=== PATIENT | male | born 1970 | race Caucasian/White ===

== ENCOUNTER 2016-11-28 22:17 | Emergency (ER) | payer MEDICAID ==
[2016-11-28] MEDS ORDERED: HYDROMORPHONE HCL INJ/PF 2 MG/ML AMPULE IV ONE ×2 (22:39→23:49)
[2016-11-28] MEDS ORDERED: ONDANSETRON HCL INJ/PF 4 MG/2 ML SDV IV ONE (22:39)
[2016-11-28] MEDS ORDERED: LIDOCAINE 2% URO-JET 5 ML KIT MM ONE (22:39)
--- NOTE | 2016-11-28 22:40 | ER Document Report ---
ED GI/ - General Stated Complaint: POSSIBLE KIDNEY STONES Time seen by provider: 22:40 Notes: Patient is a 46-year-old male that comes emergency department with chief complaint of sharp pain in his groin and genital area, he states that he has uric acid stones and passes these frequently, he states that he knew he had one left past because it could feel it but at 7:30 PM tonight it became suddenly painful and nauseating with vomiting. Patient has a follow-up with his urologist on Wednesday. Patient denies any fevers. TRAVEL OUTSIDE OF THE [place] IN LAST 30 DAYS: No - Related Data Allergies/Adverse Reactions: fentanyl Adverse Reaction (Verified 11/21/16 22:19) trazodone [Trazodone] Adverse Reaction (Verified 11/21/16 22:19) Past Medical History - General Information source: Patient - Social History Smoking Status: Current Every Day Smoker Frequency of alcohol use: None Drug Abuse: None Lives with: Family Family History: None, Reviewed & Not Pertinent - Past Medical History Cardiac Medical History: Reports: Hx Hypercholesterolemia, Hx Hypertension Endocrine Medical History: Reports: Hx Diabetes Mellitus Type 2 Renal/ Medical History: Reports: Hx Kidney Stones GI Medical History: Reports: Hx Gastroesophageal Reflux Disease, Hx Hiatal Hernia Musculoskeltal Medical History: Reports Hx Musculoskeletal Trauma Traumatic Medical History: Reports: Hx Spine Fracture Past Surgical History: Reports: Hx Cholecystectomy, Hx Orthopedic Surgery - Neck fusion, chronic pain - Immunizations Hx Diphtheria, Pertussis, Tetanus Vaccination: No Review of Systems - Review of Systems Constitutional: No symptoms reported EENT: No symptoms reported Cardiovascular: No symptoms reported Respiratory: No symptoms reported Gastrointestinal: See HPI Genitourinary: See HPI Male Genitourinary: See HPI Musculoskeletal: No symptoms reported Skin: No symptoms reported Hematologic/Lymphatic: No symptoms reported Neurological/Psychological: No symptoms reported Physical Exam - Vital signs Vitals: Temp Pulse Resp BP Pulse Ox 97.8 F 106 H 22 H 142/107 H 97 11/28/16 23:25 11/28/16 23:25 11/28/16 23:25 11/28/16 23:25 11/28/16 23:25 Interpretation: Normal - General General appearance: Anxious In distress: Severe - HEENT Head: Normocephalic, Atraumatic Eyes: Normal Conjunctiva: Normal Extraocular movements intact: Yes Eyelashes: Normal Pupils: PERRL Nasal: Normal Mouth/Lips: Normal Mucous membranes: Normal Pharynx: Normal Neck: Normal - Respiratory Respiratory status: No respiratory distress Chest status: Nontender Breath sounds: Normal Chest palpation: Normal - Cardiovascular Rhythm: Regular Heart sounds: Normal auscultation Murmur: No - Abdominal Inspection: Normal Distension: No distension Bowel sounds: Normal Tenderness: Tender - Generalized tenderness, nonspecific. No: McBurney's point , Santana's sign, Guarding Organomegaly: No organomegaly - Genitourinary Inspection: Normal. No: Blood at meatus Tenderness: Nontender Cremasteric reflex: Normal. No: Right reflex absent, Left reflex absent Scrotum: Normal. No: Swelling, Redness, Hot to touch - Back Back: Normal, Nontender - Extremities General upper extremity: Normal inspection, Nontender, Normal color, Normal ROM , Normal temperature General lower extremity: Normal inspection, Nontender, Normal color, Normal ROM , Normal temperature, Normal weight bearing. 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 Patient was given a large amount of medications before he was finally able to produce a stone from the urethra, this was somewhat bloody in his attempt which he essentially milked the stone out of the urethra. I did visualize the stone. Patient finally became calm and relaxed after passage of stone. Urine does not indicate an infection, no fever, no renal failure noted on chemistry. Patient states he has follow-up with urology on Wednesday. Return precautions discussed. - Vital Signs Vital signs: Temp Pulse Resp BP Pulse Ox 97.8 F 90 18 117/69 97 11/28/16 23:25 11/29/16 04:34 11/29/16 04:34 11/29/16 04:34 11/29/16 04:34 - Laboratory Result Diagrams: 11/28/16 22:46 Laboratory results interpreted by me: 11/28/16 11/28/16 22:46 23:21 Glucose 178 H Urine Protein 100 H Urine Glucose (UA) 50 H Urine Blood LARGE H Discharge - Discharge Clinical Impression: Ureterolithiasis, Flank pain, Hematuria Condition: Stable Disposition: HOME, SELF-CARE Additional Instructions: Please follow-up with your urologist on Wednesday. Return to emergency department for any concerning symptoms. Referrals: ELIAS AYALA FNP-C [Primary Care Provider] - Follow up as needed
[2016-11-28] MEDS ORDERED: DIAZEPAM INJ 10 MG/2 ML DISP.SYRIN IV ONE (22:58)
[2016-11-28] MEDS ORDERED: TAMSULOSIN HCL 0.4 MG CAP.SR.24H PO ONE (23:13)
[2016-11-28 23:15] LABS: ANION GAP 16 (5-19); BLOOD UREA NITROGEN 18 mg/dL (7-20); CALCIUM 9.6 mg/dL (8.4-10.2); CARBON DIOXIDE 25 mmol/L (22-30); CHLORIDE 98 mmol/L (98-107); CREATININE RESULT 0.91 mg/dL (0.52-1.25); GLUCOSE 178 mg/dL (75-110); POTASSIUM 4.7 mmol/L (3.6-5.0); SODIUM 139.4 mmol/L (137-145)
[2016-11-29] MEDS ORDERED: DIPHENHYDRAMINE HCL 50 MG/ML VIAL IV ONE ×2 (00:03→00:55)
[2016-11-29] MEDS ORDERED: DIAZEPAM INJ 10 MG/2 ML DISP.SYRIN IV ONE ×2 (00:03→03:06)
[2016-11-29 00:16] LABS: APPEARANCE,URINE SLIGHTLY-CLOUDY; BILIRUBIN,URINE NEGATIVE (NEGATIVE); GLUCOSE, URINE 50 mg/dL (NEGATIVE); KETONES,URINE NEGATIVE (NEGATIVE); LEUKOCYTE ESTERASE,URINE NEGATIVE (NEGATIVE); NITRITE,URINE NEGATIVE (NEGATIVE); PROTEIN,URINE 100 mg/dL (NEGATIVE); URINE SPECIFIC GRAVITY 1.025; UROBILINOGEN,URINE NEGATIVE mg/dL (<2.0)
[2016-11-29 00:18] LABS: AMORPHOUS SEDIMENT,URINE TRACE /HPF
[2016-11-29] MEDS ORDERED: HYDROMORPHONE HCL INJ/PF 2 MG/ML AMPULE IV ONE (02:40)
[2016-11-29 04:35] VITALS: BP 117/69
== END 2016-11-29 04:34 | disposition home or self-care (01) ==
LOC: ER 22:17
DX: N20.1 Calculus of ureter (principal); R31.9 Hematuria, unspecified; R11.10 Vomiting, unspecified; R61 Generalized hyperhidrosis; R23.2 Flushing; E11.9 Type 2 diabetes mellitus without complications; I10 Essential (primary) hypertension; F17.200 Nicotine dependence, unspecified, uncomplicated
CPT/HCPCS: 96376; 99284; 96374; 96375; 36415; 80048; 81001; J3360 ×2; J1200; J1170 ×2; J3490 ×2; J2405

== ENCOUNTER 2016-12-06 20:26 | Emergency (ER) | payer MEDICAID ==
[2016-12-06] MEDS ORDERED: KETOROLAC TROMETHAMINE INJ/PF 30 MG/1 ML SDV IV ONE (20:45)
[2016-12-06] MEDS ORDERED: TAMSULOSIN HCL 0.4 MG CAP.SR.24H PO ONE (20:57)
[2016-12-06] MEDS ORDERED: ONDANSETRON HCL INJ/PF 4 MG/2 ML SDV IV ONE ×2 (20:57→22:44)
[2016-12-06] MEDS ORDERED: NORMAL SALINE 1000 ML 1,000 ML IV ONE (20:57)
[2016-12-06] MEDS ORDERED: DIAZEPAM INJ 10 MG/2 ML DISP.SYRIN IV ONE ×2 (21:20→22:42)
[2016-12-06] MEDS ORDERED: LIDOCAINE 2% URO-JET 5 ML KIT MM ONE (21:20)
[2016-12-06 21:23] LABS: ABSOLUTE BASOPHILS # (AUTO) 0.1 10^3/uL (0.0-0.2); ABSOLUTE EOSINOPHILS # (AUTO) 0.3 10^3/uL (0.0-0.6); ABSOLUTE LYMPHOCYTES (AUTO) 3.8 10^3/uL (0.5-4.7); ABSOLUTE MONOCYTES (AUTO) 0.7 10^3/uL (0.1-1.4); ABSOLUTE NEUT (AUTO) 3.6 10^3/uL (1.7-8.2); BASOPHILS % (AUTO) 1.1 % (0-2); EOSINOPHILS % (AUTO) 3.7 % (0-6); HEMATOCRIT 49.1 % (37.9-51.0); HEMOGLOBIN 17.5 g/dL (13.5-17.0); HGB HCT DIFFERENCE 3.4; LYMPHOCYTES % (AUTO) 45.3 % (13-45); MEAN CORPUSCULAR HEMOGLOBIN 31.6 pg (27.0-33.4); MEAN CORPUSCULAR HGB CONC 35.7 g/dL (32.0-36.0); MEAN CORPUSCULAR VOLUME 89 fl (80-97); MONOCYTES % (AUTO) 7.8 % (3-13); RED BLOOD COUNT 5.55 10^6/uL (4.35-5.55); SEGMENTED NEUTROPHILS % (AUTO) 42.1 % (42-78); WHITE BLOOD COUNT 8.5 10^3/uL (4.0-10.5)
[2016-12-06] MEDS: HYDROMORPHONE HCL INJ/PF 2 MG/ML AMPULE IV PRN ×2 (21:23→22:25)
[2016-12-06 22:22] LABS: APPEARANCE,URINE CLOUDY; BILIRUBIN,URINE NEGATIVE (NEGATIVE); GLUCOSE, URINE NEGATIVE (NEGATIVE); KETONES,URINE NEGATIVE (NEGATIVE); LEUKOCYTE ESTERASE,URINE NEGATIVE (NEGATIVE); NITRITE,URINE NEGATIVE (NEGATIVE); PROTEIN,URINE 100 mg/dL (NEGATIVE); URINE SPECIFIC GRAVITY 1.029; UROBILINOGEN,URINE NEGATIVE mg/dL (<2.0)
[2016-12-06] MEDS ORDERED: ONDANSETRON HCL INJ/PF 4 MG/2 ML SDV ONE (22:25)
[2016-12-06 22:52] LABS: ANION GAP 11 (5-19); BLOOD UREA NITROGEN 21 mg/dL (7-20); CARBON DIOXIDE 28 mmol/L (22-30); CHLORIDE 102 mmol/L (98-107); CREATININE RESULT 0.94 mg/dL (0.52-1.25); GLUCOSE 182 mg/dL (75-110); POTASSIUM 4.6 mmol/L (3.6-5.0); SODIUM 141.4 mmol/L (137-145)
[2016-12-07] MEDS ORDERED: DIPHENHYDRAMINE HCL 50 MG/ML VIAL IV ONE ×2 (00:02→03:13)
[2016-12-07] MEDS ORDERED: DIPHENHYDRAMINE HCL 50 MG/ML VIAL ONE (00:04)
[2016-12-07] MEDS: HYDROMORPHONE HCL INJ/PF 2 MG/ML AMPULE IV PRN (00:10)
[2016-12-07] MEDS ORDERED: HYDROMORPHONE HCL INJ/PF 2 MG/ML AMPULE IV ONE ×2 (00:42)
[2016-12-07] MEDS ORDERED: LIDOCAINE 2% URO-JET 5 ML KIT MM ONE (00:52)
[2016-12-07] MEDS ORDERED: DIAZEPAM INJ 10 MG/2 ML DISP.SYRIN ONE (02:08)
[2016-12-07] MEDS ORDERED: ONDANSETRON HCL INJ/PF 4 MG/2 ML SDV ONE (02:09)
[2016-12-07] MEDS ORDERED: PROCHLORPERAZINE EDISYLATE INJ 10 MG/2 ML VIAL IV ONE (03:13)
[2016-12-07] MEDS ORDERED: DIAZEPAM INJ 10 MG/2 ML DISP.SYRIN IV ONE (03:13)
--- NOTE | 2016-12-07 03:19 | ER Document Report ---
ED General - General Chief Complaint: Flank Pain Stated Complaint: FLANK PAIN Notes: Patient is a 46-year-old male well-known to this emergency department with recurrent kidney stones that he requires significant management of pain and nausea for and has to self extract from his urethra who again presents today with severe right-sided flank pain. Describes the pain is typical for his kidney stones. It is a severe, constant, sharp pain. Nothing improves or worsens this pain. He has scheduled follow-up with urology at [facility] in 4 days. Notes associated nausea with vomiting as well as diaphoresis. TRAVEL OUTSIDE OF THE [place] IN LAST 30 DAYS: No - Related Data Allergies/Adverse Reactions: fentanyl Adverse Reaction (Verified 11/21/16 22:19) trazodone [Trazodone] Adverse Reaction (Verified 11/21/16 22:19) Past Medical History - General Information source: Patient - Social History Smoking Status: Never Smoker Frequency of alcohol use: None Drug Abuse: None Lives with: Spouse/Significant other Family History: None, Reviewed & Not Pertinent - Past Medical History Cardiac Medical History: Reports: Hx Hypercholesterolemia, Hx Hypertension Endocrine Medical History: Reports: Hx Diabetes Mellitus Type 2 Renal/ Medical History: Reports: Hx Kidney Stones GI Medical History: Reports: Hx Gastroesophageal Reflux Disease, Hx Hiatal Hernia Musculoskeltal Medical History: Reports Hx Musculoskeletal Trauma Traumatic Medical History: Reports: Hx Spine Fracture Past Surgical History: Reports: Hx Cholecystectomy, Hx Orthopedic Surgery - Neck fusion, chronic pain - Immunizations Hx Diphtheria, Pertussis, Tetanus Vaccination: No Review of Systems - Review of Systems Notes: Constitutional: Negative for fever. HENT: Negative for sore throat. Eyes: Negative for visual changes. Cardiovascular: Negative for chest pain. Respiratory: Negative for shortness of breath. Gastrointestinal: Negative for abdominal pain, positive for vomiting Genitourinary: Positive for hematuria and right-sided flank pain Musculoskeletal: Negative for back pain. Skin: Negative for rash. Neurological: Negative for headaches, weakness or numbness. 10 point ROS negative except as marked above and in HPI. Physical Exam - Vital signs Vitals: Temp Pulse Resp BP Pulse Ox 97.7 F 105 H 18 136/119 H 98 12/06/16 20:35 12/06/16 20:35 12/06/16 20:35 12/06/16 20:35 12/06/16 20:35 Interpretation: Tachycardic Notes: PHYSICAL EXAMINATION: GENERAL: Appears extremely uncomfortable, diaphoretic and flushed HEAD: Atraumatic, normocephalic. EYES: Pupils equal round and reactive to light, extraocular movements intact, sclera anicteric, conjunctiva are normal. ENT: nares patent, oropharynx clear without exudates. Moderately dry mucous membranes. NECK: Normal range of motion, supple without lymphadenopathy LUNGS: Breath sounds clear to auscultation bilaterally and equal. No wheezes rales or rhonchi. HEART: Regular tachycardia without murmurs ABDOMEN: Soft, nontender, normoactive bowel sounds. No guarding, no rebound. Severe right-sided flank tenderness EXTREMITIES: Normal range of motion, no pitting or edema. No cyanosis. NEUROLOGICAL: No focal neurological deficits. Moves all extremities spontaneously and on command. PSYCH: Normal mood, normal affect. SKIN: Warm, Dry, normal turgor, no rashes or lesions noted. Course - Re-evaluation Re-evalutation: 12/07/16 03:14 Patient presents with his typical episode of severe pain in association with a kidney stone. He has been seen in this department repeatedly for the same complaint and has obvious very real pain with associated nausea, vomiting, diaphoresis. Patient did extract 3 large kidney stones from his urethra and these are able to be visualized at the bedside. He has follow-up scheduled with you and see urology in 4 days for surgical management of this ongoing condition. Urinalysis without evidence of urinary tract infection.At this time will discharge with return precautions and follow-up recommendations. Verbal discharge instructions given a the bedside and opportunity for questions given. Medication warnings reviewed. Patient is in agreement with this plan and has verbalized understanding of return precautions and the need for primary care follow-up in the next 24-72 hours. - Vital Signs Vital signs: Temp Pulse Resp BP Pulse Ox 97.7 F 105 H 18 136/119 H 98 12/06/16 20:35 12/06/16 20:35 12/06/16 20:35 12/06/16 20:35 12/06/16 20:35 - Laboratory Result Diagrams: 12/06/16 21:04 12/06/16 22:12 Laboratory results interpreted by me: 12/06/16 12/06/16 12/06/16 21:04 21:58 22:12 Hgb 17.5 H Lymphocytes % 45.3 H BUN 21 H Glucose 182 H Urine Protein 100 H Urine Blood LARGE H Discharge - Discharge Clinical Impression: Kidney stone on right side Condition: Good Disposition: HOME, SELF-CARE Additional Instructions: Please follow-up with [facility] urology as scheduled. Return to the emergency department if you get recurrent kidney stones, fever, persistent vomiting, or any additional symptoms. We all wish you the very best! Referrals: ELIAS AYALA, COSMETIC CHEMIST-C [Primary Care Provider] - Follow up tomorrow
[2016-12-07 03:23] VITALS: BP 140/97
== END 2016-12-07 03:39 | disposition home or self-care (01) ==
LOC: ER 20:26
DX: N20.0 Calculus of kidney (principal); R10.9 Unspecified abdominal pain
CPT/HCPCS: 96376; 99284; 96361; 96374; 96375; 36415; 85025; 80048; 81001; J3360 ×2; J1200; J1885; J1170 ×2; J3490 ×3; J0780; J2405 ×2; J7030

== ENCOUNTER 2016-12-07 22:28 | Emergency (ER) | payer MEDICAID ==
[2016-12-07] MEDS ORDERED: LIDOCAINE 2% URO-JET 5 ML KIT MM ONE (22:54)
[2016-12-07] MEDS ORDERED: ONDANSETRON 4 MG TAB.RAPDIS PO ONE (22:54)
[2016-12-07] MEDS ORDERED: HYDROMORPHONE HCL INJ/PF 2 MG/ML AMPULE IM ONE (22:54)
[2016-12-07] MEDS ORDERED: PROMETHAZINE HCL INJ 25 MG/1 ML VIAL IM ONE (22:58)
[2016-12-07] MEDS ORDERED: HYDROMORPHONE HCL INJ/PF 2 MG/ML AMPULE IV ONE (22:58)
[2016-12-07] MEDS ORDERED: DIAZEPAM INJ 10 MG/2 ML DISP.SYRIN IM ONE (22:58)
--- NOTE | 2016-12-07 23:01 | ER Document Report ---
ED General - General Chief Complaint: Flank Pain Stated Complaint: RIGHT FLANK PAIN Notes: Patient is 46-year-old male well-known to the ER due to frequent recurring kidney stones. 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 He comes frequently needing pain medicine and Urojet to help pass the stones. His upcoming appointment on with the urologist at [facility]. There can discuss treatment to help relieve the stricture in his urethra. Patient is back today because he says that he continues to have pain and probable stone in the urethra and has been passing blood. TRAVEL OUTSIDE OF THE [place] IN LAST 30 DAYS: No - Related Data Allergies/Adverse Reactions: fentanyl Adverse Reaction (Verified 11/21/16 22:19) trazodone [Trazodone] Adverse Reaction (Verified 11/21/16 22:19) Past Medical History - Social History Smoking Status: Current Every Day Smoker Chew tobacco use (# tins/day): No Frequency of alcohol use: Rare Drug Abuse: None Family History: None, Reviewed & Not Pertinent Patient has suicidal ideation: No Patient has homicidal ideation: No - Past Medical History Cardiac Medical History: Reports: Hx Hypercholesterolemia, Hx Hypertension Endocrine Medical History: Reports: Hx Diabetes Mellitus Type 2 Renal/ Medical History: Reports: Hx Kidney Stones GI Medical History: Reports: Hx Gastroesophageal Reflux Disease, Hx Hiatal Hernia Musculoskeltal Medical History: Reports Hx Musculoskeletal Trauma Traumatic Medical History: Reports: Hx Spine Fracture Past Surgical History: Reports: Hx Cholecystectomy, Hx Orthopedic Surgery - Neck fusion, chronic pain - Immunizations Hx Diphtheria, Pertussis, Tetanus Vaccination: No Review of Systems - Review of Systems Notes: My Normal Review Basic REVIEW OF SYSTEMS: CONSTITUTIONAL : Denies fever, chills, or sweats. Denies recent illness. RESPIRATORY: Denies cough, cold, or chest congestion. Denies shortness of breath, difficulty breathing, or wheezing. GASTROINTESTINAL: Denies abdominal pain. Denies nausea, vomiting, or diarrhea. Denies constipation. Last BM: GENITOURINARY: Hematuria. Difficulty urinating. MUSCULOSKELETAL: Denies neck or back pain or joint pain or swelling. SKIN: Denies rash or skin lesions. NEUROLOGICAL: Denies altered mental status or loss of consciousness. Denies headache. Denies weakness or paralysis or loss of use of either side. Denies problems with gait or speech. Denies sensory or motor loss.on. ALL OTHER SYSTEMS REVIEWED AND NEGATIVE. Physical Exam - Vital signs Vitals: Temp Pulse Resp BP Pulse Ox 97.9 F 125 H 20 149/105 H 97 12/07/16 22:37 12/07/16 22:37 12/07/16 22:37 12/07/16 22:37 12/07/16 22:37 - Notes Notes: General Appearance: Well nourished, alert, cooperative, no acute distress, severe obvious discomfort. Tearful diaphoretic Vitals: reviewed, See vital signs table. Eyes: PERRL, EOMI, Conjuctiva clear Lungs: No wheezing, No rales, No rhonci, No accessory muscle use, good air exchange bilaterally. Heart: Normal rate, Regular rythm, No murmur, no rub Abdomen: Normal BS, soft, No rigidity, No abdominal tenderness, No guarding, no rebound, no abdominal masses, no organomegaly Genital: No swelling or redness to the genitalia. No gross blood at the urethral meatus. Extremities: strength 5/5 in all extremities, good pulses in all extremities, no swelling or tenderness in the extremities, no edema. Skin: warm, dry, appropriate color, no rash Neuro: speech clear, oriented x 3, normal affect, responds appropriately to questions. Course - Vital Signs Vital signs: Temp Pulse Resp BP Pulse Ox 97.9 F 125 H 20 149/105 H 97 12/07/16 22:37 12/07/16 22:37 12/07/16 22:37 12/07/16 22:37 12/07/16 22:37 - Transfer of Care Notes: 12/08/16 03:03 Patient has passed a stone. They did show me the kidney stone. Patient still has some pain which is understandable. We'll give patient a dose of pain medicine. Hopefully he'll be feeling better and able to be discharged home to follow-up with his urologist later this week for the scheduled procedure. 12/08/16 04:09 Patient is feeling much improved. He will be discharged home. His pain is improved after passing the stone. Patient strongly encouraged to keep his appointment with the urologist at [place] this so that they can perform a procedure to help relieve his urethral stricture. Patient agrees with plan and will be discharged home. He is encouraged return to ER immediately if has intractable pain, intractable vomiting, or fevers. Dictation of this chart was performed using voice recognition software; therefore, there may be some unintended grammatical errors. 12/08/16 04:10 Discharge - Discharge Clinical Impression: Urethral stone Condition: Good Disposition: HOME, SELF-CARE Additional Instructions: Please follow up closely with your urologist on . Please return to the ER immediately if you have worsening pain, fevers, intractable vomiting, or feel unwell. You can take the [place] pain medicine as 1 tablet every 4 hours as needed for pain. Forms: Return to Work
[2016-12-07] MEDS ORDERED: NORMAL SALINE 1000 ML 1,000 ML IV ONE (23:50)
[2016-12-07] MEDS ORDERED: DIAZEPAM INJ 10 MG/2 ML DISP.SYRIN IV ONE (23:50)
[2016-12-07] MEDS ORDERED: TAMSULOSIN HCL 0.4 MG CAP.SR.24H PO ONE (23:52)
[2016-12-08] MEDS ORDERED: PROMETHAZINE HCL INJ 25 MG/1 ML VIAL ONE (00:46)
[2016-12-08] MEDS ORDERED: DIPHENHYDRAMINE HCL 50 MG/ML VIAL IV ONE (01:30)
[2016-12-08] MEDS ORDERED: HYDROMORPHONE HCL INJ/PF 2 MG/ML AMPULE IV ONE ×2 (01:30→02:59)
[2016-12-08] MEDS ORDERED: DIAZEPAM INJ 10 MG/2 ML DISP.SYRIN IV ONE (02:01)
[2016-12-08] MEDS ORDERED: HYDROCODONE/ACETAMINOPHEN 5-325 MG 6 TAB/DSPK PO PRN (04:07)
[2016-12-08 05:02] VITALS: BP 132/80
== END 2016-12-08 05:02 | disposition home or self-care (01) ==
LOC: ER 22:28
DX: N20.1 Calculus of ureter (principal); R10.9 Unspecified abdominal pain; F17.200 Nicotine dependence, unspecified, uncomplicated; E78.00 Pure hypercholesterolemia, unspecified; I10 Essential (primary) hypertension; E11.9 Type 2 diabetes mellitus without complications; Z87.442 Personal history of urinary calculi; Z90.49 Acquired absence of other specified parts of digestive tract; Z98.1 Arthrodesis status
CPT/HCPCS: 96376; 99284; 96372; 96361; 96374; 96375; J3360 ×2; J1200; S0119; J1170 ×2; J3490 ×2; J2550; J7030

== ENCOUNTER 2016-12-11 19:14 | Emergency (ER) | payer MEDICAID ==
[2016-12-11] MEDS ORDERED: LIDOCAINE 2% URO-JET 5 ML KIT MM ONE (19:19)
[2016-12-11] MEDS ORDERED: HYDROMORPHONE HCL INJ/PF 2 MG/ML AMPULE IV ONE ×4 (19:20→23:10)
[2016-12-11] MEDS ORDERED: DIPHENHYDRAMINE HCL 50 MG/ML VIAL IV ONE ×2 (19:20→20:32)
[2016-12-11] MEDS ORDERED: ONDANSETRON HCL INJ/PF 4 MG/2 ML SDV IV ONE ×2 (19:20→20:32)
[2016-12-11] MEDS ORDERED: DIAZEPAM INJ 10 MG/2 ML DISP.SYRIN IV ONE ×2 (19:21→22:33)
--- NOTE | 2016-12-11 19:22 | ER Document Report ---
ED Medical Screen (RME) - General Stated Complaint: FLANK PAIN Notes: Patient presents to the emergency department with right sided groin pain with history of kidney stones. Patient presents here frequently needing to remove the kidney stones . Patient actively vomiting in severe pain. I greeted and performed a rapid initial assessment of this patient. Comprehensive ED assessment and evaluation of the patient, analysis of test results and completion of the medical decision making process will be conducted by additional ED providers. TRAVEL OUTSIDE OF THE [place] IN LAST 30 DAYS: No - Related Data Allergies/Adverse Reactions: fentanyl Adverse Reaction (Verified 11/21/16 22:19) trazodone [Trazodone] Adverse Reaction (Verified 11/21/16 22:19) Past Medical History - Past Medical History Cardiac Medical History: Reports: Hx Hypercholesterolemia, Hx Hypertension Endocrine Medical History: Reports: Hx Diabetes Mellitus Type 2 Renal/ Medical History: Reports: Hx Kidney Stones GI Medical History: Reports: Hx Gastroesophageal Reflux Disease, Hx Hiatal Hernia Musculoskeltal Medical History: Reports Hx Musculoskeletal Trauma Traumatic Medical History: Reports: Hx Spine Fracture Past Surgical History: Reports: Hx Cholecystectomy, Hx Orthopedic Surgery - Neck fusion, chronic pain - Immunizations Hx Diphtheria, Pertussis, Tetanus Vaccination: No
[2016-12-11] MEDS ORDERED: TAMSULOSIN HCL 0.4 MG CAP.SR.24H PO ONE (20:32)
--- NOTE | 2016-12-11 20:34 | ER Document Report ---
ED GI/ - General Chief Complaint: Possible Kidney Stone Stated Complaint: FLANK PAIN Time seen by provider: 20:30 Notes: Patient is a 46-year-old male that comes emergency department for chief complaint of severe pain in attempting to pass a uric acid kidney stone, patient has been through this many times including department, patient sees urology, states he had a scope performed which revealed scar tissue and also showed that he had a uric acid stone which had burst and the pieces of the stone were removed, he states that the urologist told him he had a piece left that he was going to have to past because it could not be removed surgically based on the location, patient states that he was doing fine until this evening when he suddenly had severe pain radiating around to his right flank. Patient vomited several times. TRAVEL OUTSIDE OF THE [place] IN LAST 30 DAYS: No - Related Data Allergies/Adverse Reactions: fentanyl Adverse Reaction (Verified 12/11/16 19:21) trazodone [Trazodone] Adverse Reaction (Verified 12/11/16 19:21) Past Medical History - General Information source: Patient - Social History Smoking Status: Current Every Day Smoker Chew tobacco use (# tins/day): No Frequency of alcohol use: None Drug Abuse: None Lives with: Family Family History: None, Reviewed & Not Pertinent Patient has suicidal ideation: No Patient has homicidal ideation: No - Past Medical History Cardiac Medical History: Reports: Hx Hypercholesterolemia, Hx Hypertension Endocrine Medical History: Reports: Hx Diabetes Mellitus Type 2 Renal/ Medical History: Reports: Hx Kidney Stones. Denies: Hx Peritoneal Dialysis GI Medical History: Reports: Hx Gastroesophageal Reflux Disease, Hx Hiatal Hernia Musculoskeltal Medical History: Reports Hx Musculoskeletal Trauma Traumatic Medical History: Reports: Hx Spine Fracture Past Surgical History: Reports: Hx Cholecystectomy, Hx Orthopedic Surgery - Neck fusion, chronic pain - Immunizations Hx Diphtheria, Pertussis, Tetanus Vaccination: No Review of Systems - Review of Systems Constitutional: No symptoms reported EENT: No symptoms reported Cardiovascular: No symptoms reported Respiratory: No symptoms reported Gastrointestinal: See HPI Genitourinary: See HPI Male Genitourinary: No symptoms reported Musculoskeletal: No symptoms reported Skin: No symptoms reported Hematologic/Lymphatic: No symptoms reported Neurological/Psychological: No symptoms reported Physical Exam - Vital signs Vitals: Temp Pulse Resp BP Pulse Ox 98.0 F 77 18 121/76 98 12/12/16 00:20 12/12/16 00:20 12/12/16 00:20 12/12/16 00:20 12/12/16 00:20 Interpretation: Normal - General General appearance: Anxious In distress: Severe - Patient flushed, diaphoretic, bent over in pain - HEENT Head: Normocephalic, Atraumatic Eyes: Normal Conjunctiva: Normal Extraocular movements intact: Yes Eyelashes: Normal Pupils: PERRL Nasal: Normal Mouth/Lips: Normal Mucous membranes: Normal Pharynx: Normal Neck: Normal - Respiratory Respiratory status: No respiratory distress Chest status: Nontender Breath sounds: Normal Chest palpation: Normal - Cardiovascular Rhythm: Regular Heart sounds: Normal auscultation Murmur: No - Abdominal Inspection: Normal Distension: No distension Bowel sounds: Normal Tenderness: Tender - Mild generalized tenderness Organomegaly: No organomegaly - Back Back: Normal, Nontender. 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 Afterwards patient symptoms resolved. Patient has not given a urine sample yet, however he has had this many times that he is asking to leave, patient will be discharged with close follow-up with his urologist. CBC and chemistry generally unremarkable with no leukocytosis, no renal function abnormality - Vital Signs Vital signs: Temp Pulse Resp BP Pulse Ox 98.0 F 77 18 121/76 98 12/12/16 00:20 12/12/16 00:20 12/12/16 00:20 12/12/16 00:20 12/12/16 00:20 - Laboratory Result Diagrams: 12/11/16 20:00 12/11/16 20:00 Laboratory results interpreted by me: 12/11/16 20:00 Glucose 190 H Direct Bilirubin 7.0 H Discharge - Discharge Clinical Impression: Urethral stone Condition: Stable Disposition: HOME, SELF-CARE Additional Instructions: Please continue your follow-up with urology for additional management. Return to emergency department for any concerning worsening symptoms including fever, vomiting, returned pain, etc.
[2016-12-11 21:01] LABS: ALANINE AMINOTRANSFERASE 65 U/L (21-72); ALBUMIN 4.6 g/dL (3.5-5.0); ALKALINE PHOSPHATASE 67 U/L (38-126); ANION GAP 15 (5-19); ASPARTATE AMINO TRANSFERASE 46 U/L (17-59); BILIRUBIN,TOTAL 0.5 mg/dL (0.2-1.3); BLOOD UREA NITROGEN 17 mg/dL (7-20); CALCIUM 9.6 mg/dL (8.4-10.2); CARBON DIOXIDE 25 mmol/L (22-30); CHLORIDE 101 mmol/L (98-107); CREATININE RESULT 0.95 mg/dL (0.52-1.25); GLUCOSE 190 mg/dL (75-110); POTASSIUM 4.2 mmol/L (3.6-5.0); SODIUM 140.8 mmol/L (137-145); TOTAL PROTEIN 7.1 g/dL (6.3-8.2)
[2016-12-11 21:04] LABS: ABSOLUTE BASOPHILS # (AUTO) 0.1 10^3/uL (0.0-0.2); ABSOLUTE EOSINOPHILS # (AUTO) 0.4 10^3/uL (0.0-0.6); ABSOLUTE LYMPHOCYTES (AUTO) 3.5 10^3/uL (0.5-4.7); ABSOLUTE MONOCYTES (AUTO) 0.7 10^3/uL (0.1-1.4); ABSOLUTE NEUT (AUTO) 3.6 10^3/uL (1.7-8.2); BASOPHILS % (AUTO) 0.8 % (0-2); EOSINOPHILS % (AUTO) 4.9 % (0-6); HEMOGLOBIN 15.4 g/dL (13.5-17.0); HGB HCT DIFFERENCE 0.2; LYMPHOCYTES % (AUTO) 42.4 % (13-45); MEAN CORPUSCULAR HEMOGLOBIN 30.8 pg (27.0-33.4); MEAN CORPUSCULAR HGB CONC 33.5 g/dL (32.0-36.0); MEAN CORPUSCULAR VOLUME 92 fl (80-97); MONOCYTES % (AUTO) 8.8 % (3-13); RED BLOOD COUNT 5.01 10^6/uL (4.35-5.55); SEGMENTED NEUTROPHILS % (AUTO) 43.1 % (42-78); WHITE BLOOD COUNT 8.2 10^3/uL (4.0-10.5)
[2016-12-12 00:34] VITALS: BP 121/76
== END 2016-12-12 00:31 | disposition home or self-care (01) ==
LOC: ER 19:14
DX: N21.1 Calculus in urethra (principal); R10.9 Unspecified abdominal pain; F17.210 Nicotine dependence, cigarettes, uncomplicated; R11.10 Vomiting, unspecified
CPT/HCPCS: 96376; 99284; 96374; 96375; 36415; 85025; 80053; J3360; J1200; J1170 ×2; J3490; J2405

== ENCOUNTER 2016-12-15 22:50 | Emergency (ER) | payer MEDICAID ==
[2016-12-16] MEDS ORDERED: MORPHINE SULFATE 10 MG/ML INJ IV PRN (00:01)
[2016-12-16] MEDS ORDERED: ONDANSETRON HCL INJ/PF 4 MG/2 ML SDV IV ONE ×2 (00:01→01:41)
[2016-12-16] MEDS ORDERED: KETOROLAC TROMETHAMINE INJ/PF 30 MG/1 ML SDV IV ONE (00:01)
[2016-12-16] MEDS ORDERED: LIDOCAINE 2% URO-JET 5 ML KIT MM ONE (00:15)
[2016-12-16 00:24] LABS: ABSOLUTE BASOPHILS # (AUTO) 0.1 10^3/uL (0.0-0.2); ABSOLUTE LYMPHOCYTES (AUTO) 1.5 10^3/uL (0.5-4.7); ABSOLUTE MONOCYTES (AUTO) 0.2 10^3/uL (0.1-1.4); ABSOLUTE NEUT (AUTO) 7.7 10^3/uL (1.7-8.2); BASOPHILS % (AUTO) 0.8 % (0-2); EOSINOPHILS % (AUTO) 0.1 % (0-6); HEMATOCRIT 48.1 % (37.9-51.0); HEMOGLOBIN 16.7 g/dL (13.5-17.0); LYMPHOCYTES % (AUTO) 15.4 % (13-45); MEAN CORPUSCULAR HEMOGLOBIN 31.1 pg (27.0-33.4); MEAN CORPUSCULAR HGB CONC 34.7 g/dL (32.0-36.0); MEAN CORPUSCULAR VOLUME 90 fl (80-97); MONOCYTES % (AUTO) 1.8 % (3-13); RED BLOOD COUNT 5.36 10^6/uL (4.35-5.55); RED CELL DISTRIBUTION WIDTH 13.5 % (11.5-14.0); SEGMENTED NEUTROPHILS % (AUTO) 81.9 % (42-78); WHITE BLOOD COUNT 9.4 10^3/uL (4.0-10.5)
[2016-12-16] MEDS ORDERED: HYDROMORPHONE HCL INJ/PF 2 MG/ML AMPULE IV ONE ×3 (00:32→02:35)
[2016-12-16] MEDS ORDERED: TAMSULOSIN HCL 0.4 MG CAP.SR.24H PO ONE (00:32)
[2016-12-16] MEDS ORDERED: DIAZEPAM INJ 10 MG/2 ML DISP.SYRIN IV ONE ×2 (00:32→02:43)
--- NOTE | 2016-12-16 00:32 | ER Document Report ---
ED GI/ - General Chief Complaint: Possible Kidney Stone Stated Complaint: RIGHT FLANK PAIN Time seen by provider: 00:32 Mode of Arrival: Ambulatory Information source: Patient TRAVEL OUTSIDE OF THE [place] IN LAST 30 DAYS: No - HPI Patient complains to provider of: Flank pain, Hematuria, Vomiting Onset: Just prior to arrival Timing/Duration: Sudden Quality of pain: Sharp, Stabbing Severity at maximum: Severe Severity in ED: Severe Pain Level: 5 Location: Right flank Associated symptoms: Dysuria, Hematuria, Nausea, Vomiting Exacerbated by: Denies Relieved by: Denies Similar symptoms previously: Yes Recently seen / treated by doctor: Yes Notes: 12/16/16 01:53 Patient is a 46-year-old male with a history of multiple previous kidney stones who presents to the emergency room complaining of right flank pain with vomiting and hematuria consistent with previous kidney stones, he was recently seen at [facility] and has a follow-up appointment in 2 weeks for possible ureteral stent placement - Related Data Allergies/Adverse Reactions: fentanyl Adverse Reaction (Verified 12/11/16 19:21) trazodone [Trazodone] Adverse Reaction (Verified 12/11/16 19:21) Past Medical History - General Information source: Patient - Social History Smoking Status: Current Every Day Smoker Frequency of alcohol use: None Drug Abuse: None Family History: None, Reviewed & Not Pertinent Patient has suicidal ideation: No Patient has homicidal ideation: No - Past Medical History Cardiac Medical History: Reports: Hx Hypercholesterolemia, Hx Hypertension Endocrine Medical History: Reports: Hx Diabetes Mellitus Type 2 Renal/ Medical History: Reports: Hx Kidney Stones. Denies: Hx Peritoneal Dialysis GI Medical History: Reports: Hx Gastroesophageal Reflux Disease, Hx Hiatal Hernia Musculoskeltal Medical History: Reports Hx Musculoskeletal Trauma Traumatic Medical History: Reports: Hx Spine Fracture Past Surgical History: Reports: Hx Cholecystectomy, Hx Orthopedic Surgery - Neck fusion, chronic pain - Immunizations Hx Diphtheria, Pertussis, Tetanus Vaccination: No Review of Systems - Review of Systems Constitutional: No symptoms reported EENT: No symptoms reported Cardiovascular: No symptoms reported Respiratory: No symptoms reported Gastrointestinal: No symptoms reported Genitourinary: See HPI Male Genitourinary: No symptoms reported Musculoskeletal: No symptoms reported Skin: No symptoms reported Hematologic/Lymphatic: No symptoms reported Neurological/Psychological: No symptoms reported -: Yes All other systems reviewed and negative Physical Exam - Vital signs Vitals: Temp Pulse Resp BP Pulse Ox 97.9 F 118 H 20 170/115 H 92 12/15/16 22:55 12/15/16 22:55 12/15/16 22:55 12/15/16 22:55 12/15/16 22:55 Interpretation: Hypertensive, Tachycardic - General General appearance: Alert In distress: Moderate Notes: Patient appears in pain, he is diaphoretic and tachycardic - HEENT Head: Normocephalic, Atraumatic Eyes: Normal Conjunctiva: Normal Extraocular movements intact: Yes Eyelashes: Normal Pupils: PERRL Mucous membranes: Normal - Respiratory Respiratory status: No respiratory distress Chest status: Nontender Breath sounds: Normal Chest palpation: Normal - Cardiovascular Rhythm: Regular, Tachycardia Heart sounds: Normal auscultation Murmur: No - Abdominal Inspection: Normal Distension: No distension Bowel sounds: Normal Tenderness: Nontender Organomegaly: No organomegaly - Back Back: Normal, Nontender - Extremities General upper extremity: Normal inspection General lower extremity: Normal inspection - Neurological Neuro grossly intact: Yes Cognition: Normal Orientation: AAOx4 [place] Coma Scale Eye Opening: Spontaneous [place] Coma Scale Verbal: Oriented Joyce Coma Scale Motor: Obeys Commands Joyce Coma Scale Total: 15 - Psychological Associated symptoms: Normal affect, Normal mood - Skin Skin Temperature: Warm Skin Moisture: Diaphoretic Course - Re-evaluation Re-evalutation: 12/16/16 02:41 Patient in bathroom attempting to pass stone, I went into the bathroom to check on him, he had the wooden end of a Q-tip in his urethra attempting to take out a stone which he was successful in doing, he requested a saline flush to help pass a blood clot as well, which he was given, there was a moderate amount of blood coming from his urethra, he was able to apply pressure for this to stop, additional pain and muscle relaxer medication was ordered for, we will continue to observe him until he feels well enough to return home and follow-up with his urologist at [facility] - Vital Signs Vital signs: Temp Pulse Resp BP Pulse Ox 97.9 F 118 H 20 170/115 H 92 12/15/16 22:55 12/15/16 22:55 12/15/16 22:55 12/15/16 22:55 12/15/16 22:55 - Laboratory Result Diagrams: 12/16/16 00:01 12/16/16 00:01 Laboratory results interpreted by me: 12/16/16 12/16/16 00:01 00:01 Seg Neutrophils % 81.9 H Monocytes % 1.8 L Carbon Dioxide 20 L Anion Gap 21 H Glucose 288 H Albumin 5.1 H Discharge - Discharge Clinical Impression: Kidney stones Condition: Stable Disposition: HOME, SELF-CARE Instructions: Kidney Stone ([facility]) Additional Instructions: Follow up with your urologist within the next 1-2 days and your primary care provider. Return to the emergency room immediately if symptoms worsen or any additional concerns. Patient has been seen in this emergency room on at least 10 occasions in the last month for symptoms related to passage of a kidney stone. On multiple occasions he has been observed using a wooden Q-tip to assist in passing a stone from his urethra. He requires an increasingly large amount of pain medication, nausea medication and muscle relaxers to relieve or lessen his pain. Patient has been advised to follow-up with a urologist immediately for further evaluation and treatment of his kidney stones.
[2016-12-16 00:51] LABS: ALANINE AMINOTRANSFERASE 60 U/L (21-72); ALBUMIN 5.1 g/dL (3.5-5.0); ALKALINE PHOSPHATASE 64 U/L (38-126); ANION GAP 21 (5-19); ASPARTATE AMINO TRANSFERASE 39 U/L (17-59); BILIRUBIN,TOTAL 0.6 mg/dL (0.2-1.3); BLOOD UREA NITROGEN 17 mg/dL (7-20); CALCIUM 10.1 mg/dL (8.4-10.2); CARBON DIOXIDE 20 mmol/L (22-30); CHLORIDE 98 mmol/L (98-107); CREATININE RESULT 0.89 mg/dL (0.52-1.25); GLUCOSE 288 mg/dL (75-110); LIPASE 84.6 U/L (23-300); POTASSIUM 4.6 mmol/L (3.6-5.0); SODIUM 138.6 mmol/L (137-145); TOTAL PROTEIN 8.1 g/dL (6.3-8.2)
[2016-12-16] MEDS ORDERED: NORMAL SALINE 1000 ML 1,000 ML IV PRN (00:55)
[2016-12-16] MEDS ORDERED: DIPHENHYDRAMINE HCL 50 MG/ML VIAL IV ONE ×2 (01:24→01:41)
[2016-12-16] MEDS ORDERED: DIPHENHYDRAMINE HCL 50 MG/ML VIAL ONE (01:25)
[2016-12-16] MEDS ORDERED: DIAZEPAM INJ 10 MG/2 ML DISP.SYRIN ONE (02:44)
[2016-12-16] MEDS ORDERED: MORPHINE SULFATE 10 MG/ML INJ IV ONE (03:54)
[2016-12-16 04:56] VITALS: BP 129/87
== END 2016-12-16 04:40 | disposition home or self-care (01) ==
LOC: ER 22:50
DX: N21.1 Calculus in urethra (principal); R31.9 Hematuria, unspecified; R30.0 Dysuria; R61 Generalized hyperhidrosis; R11.2 Nausea with vomiting, unspecified; R10.9 Unspecified abdominal pain; R00.0 Tachycardia, unspecified; I10 Essential (primary) hypertension; E11.9 Type 2 diabetes mellitus without complications; F17.200 Nicotine dependence, unspecified, uncomplicated
CPT/HCPCS: 96376; 99284; 96374; 96375; 36415; 83690; 85025; 80053; J3360; J1200; J1885; J2270; J1170; J3490 ×2; J2405; J7030

== ENCOUNTER 2016-12-21 04:18 | Emergency (ER) | payer MEDICAID ==
[2016-12-21] MEDS ORDERED: KETOROLAC TROMETHAMINE INJ/PF 30 MG/1 ML SDV ONE (04:28)
[2016-12-21] MEDS ORDERED: ONDANSETRON HCL INJ/PF 4 MG/2 ML SDV ONE (04:28)
[2016-12-21] MEDS ORDERED: DIPHENHYDRAMINE HCL 50 MG/ML VIAL IV ONE ×2 (04:33→05:07)
[2016-12-21] MEDS ORDERED: HYDROMORPHONE HCL INJ/PF 2 MG/ML AMPULE IV ONE ×3 (04:33→06:16)
[2016-12-21] MEDS ORDERED: KETOROLAC TROMETHAMINE INJ/PF 30 MG/1 ML SDV IV ONE (04:34)
[2016-12-21] MEDS ORDERED: NORMAL SALINE 1000 ML 1,000 ML IV ONE (04:34)
[2016-12-21] MEDS ORDERED: ONDANSETRON HCL INJ/PF 4 MG/2 ML SDV IV ONE (04:34)
[2016-12-21] MEDS ORDERED: HYDROMORPHONE HCL INJ/PF 2 MG/ML AMPULE ONE (04:34)
[2016-12-21] MEDS ORDERED: DIPHENHYDRAMINE HCL 50 MG/ML VIAL ONE (04:35)
[2016-12-21] MEDS ORDERED: DIAZEPAM INJ 10 MG/2 ML DISP.SYRIN IV ONE ×2 (04:36→05:27)
[2016-12-21] MEDS ORDERED: LIDOCAINE 2% URO-JET 5 ML KIT MM ONE ×2 (04:36→06:16)
--- NOTE | 2016-12-21 04:36 | ER Document Report ---
ED GI/ - General Chief Complaint: Possible Kidney Stone Stated Complaint: FLANK PAIN Time seen by provider: 04:30 Notes: Patient is a 46-year-old male that comes emergency department for chief complaint of sudden severe pain in his right groin area. 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 Patient states she is to be seen on Wednesday for a procedure by his urologist to remove the stricture. Patient denies fever, states he started vomiting and had sudden onset of pain just prior to arrival. TRAVEL OUTSIDE OF THE [place] IN LAST 30 DAYS: No - Related Data Allergies/Adverse Reactions: fentanyl Adverse Reaction (Verified 12/21/16 04:20) trazodone [Trazodone] Adverse Reaction (Verified 12/21/16 04:20) Past Medical History - General Information source: Patient - Social History Smoking Status: Current Every Day Smoker Frequency of alcohol use: None Drug Abuse: None Lives with: Family Family History: None, Reviewed & Not Pertinent Patient has suicidal ideation: No Patient has homicidal ideation: No - Past Medical History Cardiac Medical History: Reports: Hx Hypercholesterolemia, Hx Hypertension Endocrine Medical History: Reports: Hx Diabetes Mellitus Type 2 Renal/ Medical History: Reports: Hx Kidney Stones. Denies: Hx Peritoneal Dialysis GI Medical History: Reports: Hx Gastroesophageal Reflux Disease, Hx Hiatal Hernia Musculoskeltal Medical History: Reports Hx Musculoskeletal Trauma Traumatic Medical History: Reports: Hx Spine Fracture Past Surgical History: Reports: Hx Cholecystectomy, Hx Orthopedic Surgery - Neck fusion, chronic pain - Immunizations Hx Diphtheria, Pertussis, Tetanus Vaccination: No Review of Systems - Review of Systems Constitutional: No symptoms reported EENT: No symptoms reported Cardiovascular: No symptoms reported Respiratory: No symptoms reported Gastrointestinal: No symptoms reported Genitourinary: See HPI Male Genitourinary: See HPI Musculoskeletal: No symptoms reported Skin: No symptoms reported Hematologic/Lymphatic: No symptoms reported Neurological/Psychological: No symptoms reported Physical Exam - Vital signs Vitals: Temp Pulse Resp BP Pulse Ox 97.8 F 100 20 160/117 H 96 12/21/16 04:22 12/21/16 04:22 12/21/16 04:22 12/21/16 04:22 12/21/16 04:22 Interpretation: Normal - General General appearance: Anxious In distress: Severe - HEENT Head: Normocephalic, Atraumatic Eyes: Normal Pupils: PERRL - Respiratory Respiratory status: No respiratory distress Chest status: Nontender Breath sounds: Normal Chest palpation: Normal - Cardiovascular Rhythm: Regular. No: Tachycardia Heart sounds: Normal auscultation, S1 appreciated, S2 appreciated Murmur: No - Abdominal Inspection: Normal Distension: No distension Bowel sounds: Normal Tenderness: Tender - Gen. lower abdominal tenderness - Genitourinary Inspection: Normal Cremasteric reflex: Normal Scrotum: Normal. No: Swelling, Redness, Hot to touch - Back Back: Normal, Nontender - Extremities General upper extremity: Normal inspection, Nontender, Normal color, Normal ROM , Normal temperature General lower extremity: Normal inspection, Nontender, Normal color, Normal ROM , Normal temperature, Normal weight bearing. No: Nathaniel's sign - Neurological Neuro grossly intact: Yes Cognition: Normal Orientation: AAOx4 [place] Coma Scale Eye Opening: Spontaneous [place] Coma Scale Verbal: Oriented [place] Coma Scale Motor: Obeys Commands [place] Coma Scale Total: 15 Speech: Normal Motor strength normal: LUE, RUE, LLE, RLE Sensory: Normal - Psychological Associated symptoms: Normal affect, Normal mood - Skin Skin Temperature: Warm Skin Moisture: Diaphoretic Skin Color: Flushed Course - Re-evaluation Re-evalutation: Urinalysis shows hematuria but no infection. Chemistry hemolyzed. Patient able to date out another stone, I did observe this and observe the stone. Patient had a medicated in order to do so but was able to do so quicker than usual. Patient has a follow-up the following Wednesday with his urologist and planned removal of the stricture. Discussed return precautions including fever, uncontrolled vomiting, etc. Patient states understanding and agreement. Patient is asking to leave, chemistry canceled. - Vital Signs Vital signs: Temp Pulse Resp BP Pulse Ox 97.9 F 92 17 137/76 H 95 12/21/16 06:43 12/21/16 06:43 12/21/16 06:43 12/21/16 06:43 12/21/16 06:43 - Laboratory Result Diagrams: 12/21/16 04:30 Laboratory results interpreted by me: 12/21/16 04:55 Urine Protein 100 H Urine Glucose (UA) 50 H Urine Blood LARGE H Discharge - Discharge Clinical Impression: Kidney stones, Urethral pain Condition: Stable Disposition: HOME, SELF-CARE Additional Instructions: Follow-up with your urologist on Wednesday as planned. Return to the emergency department for any concerning symptoms.
[2016-12-21] MEDS ORDERED: DIAZEPAM INJ 10 MG/2 ML DISP.SYRIN ONE (04:38)
[2016-12-21] MEDS ORDERED: TAMSULOSIN HCL 0.4 MG CAP.SR.24H PO ONE (04:39)
[2016-12-21 06:10] LABS: APPEARANCE,URINE TURBID; BILIRUBIN,URINE NEGATIVE (NEGATIVE); GLUCOSE, URINE 50 mg/dL (NEGATIVE); KETONES,URINE NEGATIVE (NEGATIVE); LEUKOCYTE ESTERASE,URINE NEGATIVE (NEGATIVE); NITRITE,URINE NEGATIVE (NEGATIVE); PROTEIN,URINE 100 mg/dL (NEGATIVE); URINE SPECIFIC GRAVITY 1.032; UROBILINOGEN,URINE NEGATIVE mg/dL (<2.0)
[2016-12-21 06:44] VITALS: BP 137/76
== END 2016-12-21 06:45 | disposition home or self-care (01) ==
LOC: ER 04:18
DX: N20.0 Calculus of kidney (principal); R10.9 Unspecified abdominal pain; R11.10 Vomiting, unspecified; F17.210 Nicotine dependence, cigarettes, uncomplicated
CPT/HCPCS: 96376; 99284; 96361; 96374; 96375; 81001; J3360; J1200; J1885; J1170; J3490 ×2; J2405; J7030

== ENCOUNTER 2016-12-25 02:11 | Emergency (ER) | payer MEDICAID ==
[2016-12-25] MEDS ORDERED: LIDOCAINE 2% URO-JET 5 ML KIT MM ONE (02:19)
[2016-12-25] MEDS ORDERED: KETOROLAC TROMETHAMINE INJ/PF 30 MG/1 ML SDV ONE (02:23)
[2016-12-25] MEDS ORDERED: ONDANSETRON HCL INJ/PF 4 MG/2 ML SDV ONE (02:23)
[2016-12-25] MEDS ORDERED: DIPHENHYDRAMINE HCL 50 MG/ML VIAL IV ONE ×2 (02:27→03:40)
[2016-12-25] MEDS ORDERED: TAMSULOSIN HCL 0.4 MG CAP.SR.24H PO ONE (02:27)
[2016-12-25] MEDS ORDERED: HYDROMORPHONE HCL INJ/PF 2 MG/ML AMPULE IV ONE ×3 (02:27→04:45)
[2016-12-25] MEDS ORDERED: PROMETHAZINE HCL INJ 50 MG/1 ML VIAL IM PRN (02:28)
[2016-12-25] MEDS ORDERED: DIAZEPAM INJ 10 MG/2 ML DISP.SYRIN IV ONE ×2 (02:44→03:40)
--- NOTE | 2016-12-25 02:45 | ER Document Report ---
ED GI/ - General Chief Complaint: Urinary Problem Stated Complaint: FLANK PAIN Mode of Arrival: Ambulatory Information source: Patient Notes: Patient is a 46-year-old male with a history of uric acid kidney stones who presents to the ER today for kidney stone, right flank pain that woke him up from sleep tonight radiating into the right lower abdomen. He admits to hematuria at this time and difficulty urinating. He states that he has been abiding by a new diet to keep the uric acid levels down but that tonight he did have some steak and "a few irish fries" and "a few sips of Mountain Dew." TRAVEL OUTSIDE OF THE [place] IN LAST 30 DAYS: No - Related Data Allergies/Adverse Reactions: fentanyl Adverse Reaction (Verified 12/21/16 04:20) trazodone [Trazodone] Adverse Reaction (Verified 12/21/16 04:20) Past Medical History - General Information source: Patient - Social History Smoking Status: Unknown if Ever Smoked Family History: None, Reviewed & Not Pertinent - Past Medical History Cardiac Medical History: Reports: Hx Hypercholesterolemia, Hx Hypertension Endocrine Medical History: Reports: Hx Diabetes Mellitus Type 2 Renal/ Medical History: Reports: Hx Kidney Stones. Denies: Hx Peritoneal Dialysis GI Medical History: Reports: Hx Gastroesophageal Reflux Disease, Hx Hiatal Hernia Musculoskeltal Medical History: Reports Hx Musculoskeletal Trauma Traumatic Medical History: Reports: Hx Spine Fracture Past Surgical History: Reports: Hx Cholecystectomy, Hx Orthopedic Surgery - Neck fusion, chronic pain - Immunizations Hx Diphtheria, Pertussis, Tetanus Vaccination: No Review of Systems - Review of Systems Constitutional: No symptoms reported EENT: No symptoms reported Cardiovascular: No symptoms reported Respiratory: No symptoms reported Gastrointestinal: No symptoms reported Genitourinary: See HPI Male Genitourinary: No symptoms reported Musculoskeletal: No symptoms reported Skin: No symptoms reported Hematologic/Lymphatic: No symptoms reported Neurological/Psychological: No symptoms reported Physical Exam - Vital signs Vitals: Temp Pulse Resp BP Pulse Ox 98.5 F 93 20 134/94 H 95 12/25/16 05:00 12/25/16 05:00 12/25/16 05:00 12/25/16 05:00 12/25/16 05:00 - Notes Notes: PHYSICAL EXAMINATION: GENERAL: crying, diaphoretic, holding right lower abdomen, in moderate acute distress. HEAD: Atraumatic, normocephalic. EYES: Pupils equal round and reactive to light, extraocular movements intact, sclera anicteric, conjunctiva are normal. NECK: Normal range of motion, supple without lymphadenopathy LUNGS: CTAB and equal. No wheezes rales or rhonchi. HEART: Regular rate and rhythm without murmurs ABDOMEN: Soft, right lower quadrant tenderness. No guarding, no rebound BACK: no vertebral tenderness, normal ROM GI/: right CVA tenderness EXTREMITIES: Normal range of motion, no pitting edema. No cyanosis. NEUROLOGICAL: Cranial nerves grossly intact. Normal sensory/motor exams. SKIN: Warm, Dry, normal turgor, no rashes or lesions noted Course - Re-evaluation Re-evalutation: 12/25/16 06:56 Pt did get multiple doses of pain medication, Valium, Benadryl, nausea medication at a dose of Flomax along with IV fluids here in the emergency department. Patient did pass the stone. - Vital Signs Vital signs: Temp Pulse Resp BP Pulse Ox 98.5 F 93 20 134/94 H 95 12/25/16 05:00 12/25/16 05:00 12/25/16 05:00 12/25/16 05:00 12/25/16 05:00 Discharge - Discharge Clinical Impression: Kidney stone on right side Condition: Stable Disposition: HOME, SELF-CARE Additional Instructions: Return immediately for any new or worsening symptoms. Follow up with primary care provider, call tomorrow to make followup appointment. Referrals: GEORGINA HERRERA MD [Primary Care Provider] - Follow up as needed
[2016-12-25] MEDS ORDERED: PROMETHAZINE HCL INJ 50 MG/1 ML VIAL ONE (03:06)
[2016-12-25 05:08] VITALS: BP 134/94
== END 2016-12-25 05:08 | disposition home or self-care (01) ==
LOC: ER 02:11
DX: N20.0 Calculus of kidney (principal); R10.9 Unspecified abdominal pain; E78.00 Pure hypercholesterolemia, unspecified; I10 Essential (primary) hypertension; E11.9 Type 2 diabetes mellitus without complications; Z90.49 Acquired absence of other specified parts of digestive tract; Z87.442 Personal history of urinary calculi
CPT/HCPCS: 96376; 99283; 96372; 96374; 96375; J3360; J1200; J1885; J1170; J3490 ×2; J2550; J2405

== ENCOUNTER 2016-12-26 21:25 | Emergency (ER) | payer MEDICAID ==
[2016-12-26] MEDS ORDERED: DIPHENHYDRAMINE HCL 50 MG/ML VIAL IV ONE ×2 (21:31→22:18)
[2016-12-26] MEDS ORDERED: ONDANSETRON HCL INJ/PF 4 MG/2 ML SDV IV ONE (21:32)
[2016-12-26] MEDS ORDERED: NORMAL SALINE 1000 ML 1,000 ML IV ONE (21:32)
[2016-12-26] MEDS ORDERED: HYDROMORPHONE HCL INJ/PF 2 MG/ML AMPULE IV ONE ×2 (21:32→22:18)
--- NOTE | 2016-12-26 21:38 | ER Document Report ---
ED GI/ - General Stated Complaint: RIGHT SIDE FLANK PAIN Time seen by provider: 21:35 Notes: Patient is a 46-year-old male that comes emergency department for chief complaint of sharp pain in his right groin and genital area with vomiting that started this evening. Patient states that he actually already dug out a stone from his urethra earlier today with the curette that was given to him on a previous visit. Patient has known history of uric acid stones, urethral stricture, and difficulty passing stones with the need to take out the stones with a device such as a curette. Patient denies any fever, still has the procedure scheduled for Wednesday by his urologist to remove the stricture. TRAVEL OUTSIDE OF THE [place] IN LAST 30 DAYS: No - Related Data Allergies/Adverse Reactions: fentanyl Adverse Reaction (Verified 12/21/16 04:20) trazodone [Trazodone] Adverse Reaction (Verified 12/21/16 04:20) Past Medical History - General Information source: Patient - Social History Smoking Status: Never Smoker Frequency of alcohol use: None Drug Abuse: None Lives with: Family Family History: None, Reviewed & Not Pertinent - Past Medical History Cardiac Medical History: Reports: Hx Hypercholesterolemia, Hx Hypertension Endocrine Medical History: Reports: Hx Diabetes Mellitus Type 2 Renal/ Medical History: Reports: Hx Kidney Stones. Denies: Hx Peritoneal Dialysis GI Medical History: Reports: Hx Gastroesophageal Reflux Disease, Hx Hiatal Hernia Musculoskeltal Medical History: Reports Hx Musculoskeletal Trauma Traumatic Medical History: Reports: Hx Spine Fracture Past Surgical History: Reports: Hx Cholecystectomy, Hx Orthopedic Surgery - Neck fusion, chronic pain - Immunizations Hx Diphtheria, Pertussis, Tetanus Vaccination: No Review of Systems - Review of Systems Constitutional: No symptoms reported EENT: No symptoms reported Cardiovascular: No symptoms reported Respiratory: No symptoms reported Gastrointestinal: No symptoms reported Genitourinary: See HPI Male Genitourinary: See HPI Musculoskeletal: No symptoms reported Skin: No symptoms reported Hematologic/Lymphatic: No symptoms reported Neurological/Psychological: No symptoms reported Physical Exam - Vital signs Interpretation: Normal - General General appearance: Alert, Anxious In distress: Severe - HEENT Head: Normocephalic, Atraumatic Eyes: Normal Pupils: PERRL - Respiratory Respiratory status: No respiratory distress Chest status: Nontender Breath sounds: Normal Chest palpation: Normal - Cardiovascular Rhythm: Regular Heart sounds: Normal auscultation Murmur: No - Abdominal Inspection: Normal Distension: No distension Bowel sounds: Normal Tenderness: Nontender. No: Tender Organomegaly: No organomegaly - Genitourinary Inspection: Normal Cremasteric reflex: Normal Scrotum: Normal. No: Swelling, Redness, Hot to touch - Back Back: Normal, Nontender. No: Tender - Extremities General upper extremity: Normal inspection, Nontender, Normal color, Normal ROM , Normal temperature General lower extremity: Normal inspection, Nontender, Normal color, Normal ROM , Normal temperature, Normal weight bearing. No: Nathaniel's sign - Neurological Neuro grossly intact: Yes Cognition: Normal Orientation: AAOx4 [place] Coma Scale Eye Opening: Spontaneous [place] Coma Scale Verbal: Oriented [place] Coma Scale Motor: Obeys Commands [place] Coma Scale Total: 15 Speech: Normal Motor strength normal: LUE, RUE, LLE, RLE Sensory: Normal - Psychological Associated symptoms: Agitated - Skin Skin Temperature: Warm Skin Moisture: Diaphoretic Skin Color: Normal, Flushed Course - Re-evaluation Re-evalutation: Patient vomiting multiple times, and diaphoretic, appears to be in severe pain, no evidence of testicular torsion. Patient symptoms refractory to multiple doses of pain medication. Urinalysis shows hematuria, BMP is approximately baseline. Discussed with Dr. Velez who ordered an initial dose of ketamine. After this patient became very relaxed. Soon after this patient began to have severe pain again, entered the bathroom, removed two stones from the urethra ( evaluated him in the bathroom). Patient had another episode of severe pain, redosed medications, adequate the bathroom again and removed an additional stone. After passing a stone patient again had to be redosed pain medication. Patient given additional fluids. Discussed again with Dr. Velez. Patient will be discharged to his urologist, and tends to have a procedure on Wednesday of this week. Discussed return precautions. Patient states understanding and agreement. Patient became very upset and states he couldn't take it anymore, I did discuss with patient again, he denies SI or HI, states that he was just in severe pain. states when I discussed with her separately that she has taken precautions and put all home weapons in a safe and she is the only one that has a henriquez, just in case, just because patient has had go through such an ordeal. She states she does not have any concerns that he will perform anything but she did want to take the precaution because he has been having such a hard time with this. Patient has no history of SI or HI or attempts. - Laboratory Result Diagrams: 12/26/16 21:46 Laboratory results interpreted by me: 12/26/16 12/26/16 21:46 22:00 Glucose 188 H Urine Protein 100 H Urine Glucose (UA) 50 H Urine Blood LARGE H Discharge - Discharge Clinical Impression: Calculus in urethra, Hematuria Vomiting Qualifiers: Vomiting type: unspecified Vomiting Intractability: non-intractable Nausea presence: with nausea Qualified Code(s): R11.2 - Nausea with vomiting, unspecified Condition: Stable Disposition: HOME, SELF-CARE Additional Instructions: Follow up on Wednesday as planned with your Urologist. Return to the ED for any return or new concerning symptoms- fever, vomiting, severe pain, etc.
[2016-12-26] MEDS ORDERED: DIAZEPAM INJ 10 MG/2 ML DISP.SYRIN IV ONE (21:45)
[2016-12-26] MEDS ORDERED: TAMSULOSIN HCL 0.4 MG CAP.SR.24H PO ONE (21:46)
[2016-12-26 22:06] LABS: ANION GAP 15 (5-19); BLOOD UREA NITROGEN 18 mg/dL (7-20); CALCIUM 9.7 mg/dL (8.4-10.2); CARBON DIOXIDE 23 mmol/L (22-30); CHLORIDE 103 mmol/L (98-107); CREATININE RESULT 0.93 mg/dL (0.52-1.25); GLUCOSE 188 mg/dL (75-110); POTASSIUM 3.9 mmol/L (3.6-5.0)
[2016-12-26 22:46] LABS: APPEARANCE,URINE CLOUDY; BILIRUBIN,URINE NEGATIVE (NEGATIVE); GLUCOSE, URINE 50 mg/dL (NEGATIVE); KETONES,URINE NEGATIVE (NEGATIVE); LEUKOCYTE ESTERASE,URINE NEGATIVE (NEGATIVE); NITRITE,URINE NEGATIVE (NEGATIVE); PROTEIN,URINE 100 mg/dL (NEGATIVE); URINE SPECIFIC GRAVITY 1.024; UROBILINOGEN,URINE NEGATIVE mg/dL (<2.0)
[2016-12-26] MEDS ORDERED: KETAMINE HCL INJ 500 MG/10 ML VIAL IV ONE ×2 (23:00→23:46)
[2016-12-26] MEDS ORDERED: KETAMINE HCL INJ 500 MG/10 ML VIAL ONE (23:01)
[2016-12-26] MEDS ORDERED: LIDOCAINE 2% URO-JET 5 ML KIT MM ONE (23:34)
[2016-12-27] MEDS ORDERED: DIAZEPAM INJ 10 MG/2 ML DISP.SYRIN IV ONE ×3 (00:18→04:32)
[2016-12-27] MEDS ORDERED: DIAZEPAM INJ 10 MG/2 ML DISP.SYRIN ONE (00:20)
[2016-12-27] MEDS ORDERED: ONDANSETRON HCL INJ/PF 4 MG/2 ML SDV IV ONE (00:35)
[2016-12-27] MEDS ORDERED: ONDANSETRON HCL INJ/PF 4 MG/2 ML SDV ONE (00:37)
[2016-12-27] MEDS ORDERED: KETAMINE HCL INJ 500 MG/10 ML VIAL IV ONE ×2 (00:43→02:31)
[2016-12-27] MEDS ORDERED: HYDROMORPHONE HCL INJ/PF 2 MG/ML AMPULE IV ONE ×4 (00:58→03:59)
[2016-12-27] MEDS ORDERED: DIPHENHYDRAMINE HCL 50 MG/ML VIAL IV ONE (01:42)
[2016-12-27] MEDS ORDERED: DIPHENHYDRAMINE HCL 50 MG/ML VIAL ONE (01:43)
[2016-12-27] MEDS ORDERED: KETOROLAC TROMETHAMINE INJ/PF 30 MG/1 ML SDV IV ONE (02:22)
[2016-12-27] MEDS ORDERED: NORMAL SALINE 1000 ML 1,000 ML IV ONE (02:57)
== END 2016-12-27 04:45 | disposition home or self-care (01) ==
LOC: ER 21:25
DX: N21.1 Calculus in urethra (principal); R10.30 Lower abdominal pain, unspecified; N50.89 Other specified disorders of the male genital organs; R61 Generalized hyperhidrosis; R23.2 Flushing; R31.9 Hematuria, unspecified; R11.2 Nausea with vomiting, unspecified; E11.9 Type 2 diabetes mellitus without complications; I10 Essential (primary) hypertension
CPT/HCPCS: 96376; 99283; 96361; 96374; 96375; 36415; 80048; 81001; J3360 ×2; J1200 ×2; J3490 ×4; J1885; J1170 ×2; J2405; J7030 ×2

== ENCOUNTER 2016-12-27 20:25 | Emergency (ER) | payer MEDICAID ==
[2016-12-27] MEDS ORDERED: NORMAL SALINE 1000 ML 1,000 ML IV PRN (20:30)
[2016-12-27] MEDS ORDERED: KETOROLAC TROMETHAMINE INJ/PF 30 MG/1 ML SDV IV ONE (20:31)
[2016-12-27] MEDS ORDERED: TAMSULOSIN HCL 0.4 MG CAP.SR.24H PO ONE (21:19)
[2016-12-27] MEDS ORDERED: HYDROMORPHONE HCL INJ/PF 2 MG/ML AMPULE IV ONE (21:19)
[2016-12-27] MEDS ORDERED: DIPHENHYDRAMINE HCL 50 MG/ML VIAL IV ONE (21:19)
[2016-12-27] MEDS ORDERED: DIAZEPAM INJ 10 MG/2 ML DISP.SYRIN IV ONE (21:19)
[2016-12-27] MEDS ORDERED: LIDOCAINE 2% URO-JET 5 ML KIT MM ONE (21:20)
[2016-12-27] MEDS ORDERED: NORMAL SALINE 1000 ML 1,000 ML IV ONE ×2 (21:54)
--- NOTE | 2016-12-27 21:54 | ER Document Report ---
ED GI/ - General Chief Complaint: Possible Kidney Stone Stated Complaint: ABDOMINAL PAIN Time seen by provider: 21:40 Notes: Patient is a 46-year-old male that comes emergency department for chief complaint of pain in his groin and penis area, patient was seen here last night and past several your acid stones, patient states that until 5 PM he was feeling okay but then suddenly began to have pain and began vomiting again. He denies fever. Follow-up with urology is still on Wednesday. TRAVEL OUTSIDE OF THE [place] IN LAST 30 DAYS: No - Related Data Allergies/Adverse Reactions: fentanyl Adverse Reaction (Verified 12/21/16 04:20) trazodone [Trazodone] Adverse Reaction (Verified 12/21/16 04:20) Past Medical History - General Information source: Patient - Social History Smoking Status: Current Every Day Smoker Chew tobacco use (# tins/day): No Frequency of alcohol use: None Drug Abuse: None Lives with: Family Family History: None, Reviewed & Not Pertinent Patient has suicidal ideation: No Patient has homicidal ideation: No - Past Medical History Cardiac Medical History: Reports: Hx Hypercholesterolemia, Hx Hypertension Endocrine Medical History: Reports: Hx Diabetes Mellitus Type 2 Renal/ Medical History: Reports: Hx Kidney Stones. Denies: Hx Peritoneal Dialysis GI Medical History: Reports: Hx Gastroesophageal Reflux Disease, Hx Hiatal Hernia Musculoskeltal Medical History: Reports Hx Musculoskeletal Trauma Traumatic Medical History: Reports: Hx Spine Fracture Past Surgical History: Reports: Hx Cholecystectomy, Hx Orthopedic Surgery - Neck fusion, chronic pain - Immunizations Hx Diphtheria, Pertussis, Tetanus Vaccination: No Review of Systems - Review of Systems Constitutional: No symptoms reported EENT: No symptoms reported Cardiovascular: No symptoms reported Respiratory: No symptoms reported Gastrointestinal: No symptoms reported Genitourinary: See HPI Male Genitourinary: See HPI Musculoskeletal: No symptoms reported Skin: No symptoms reported Hematologic/Lymphatic: No symptoms reported Neurological/Psychological: No symptoms reported Physical Exam - Vital signs Vitals: Temp Pulse Resp BP Pulse Ox 97.8 F 145 H 22 H 150/120 H 95 12/27/16 20:33 12/27/16 20:33 12/27/16 20:33 12/27/16 20:33 12/27/16 20:33 Interpretation: Normal - General General appearance: Alert, Anxious In distress: Moderate - HEENT Head: Normocephalic, Atraumatic Eyes: Normal Pupils: PERRL - Respiratory Respiratory status: No respiratory distress Chest status: Nontender Breath sounds: Normal Chest palpation: Normal - Cardiovascular Rhythm: Regular, Tachycardia Heart sounds: Normal auscultation, S1 appreciated, S2 appreciated Murmur: No - Abdominal Inspection: Normal Distension: No distension Bowel sounds: Normal Tenderness: Nontender Organomegaly: No organomegaly - Genitourinary Inspection: Normal Cremasteric reflex: Normal Scrotum: Normal. No: Swelling, Redness, Hot to touch - Back Back: Normal, Nontender - Extremities General upper extremity: Normal inspection, Nontender, Normal color, Normal ROM , Normal temperature General lower extremity: Normal inspection, Nontender, Normal color, Normal ROM , Normal temperature, Normal weight bearing. No: Nathaniel's sign - Neurological Neuro grossly intact: Yes Cognition: Normal Orientation: AAOx4 Joyce Coma Scale Eye Opening: Spontaneous Joyce Coma Scale Verbal: Oriented Joyce Coma Scale Motor: Obeys Commands [place] Coma Scale Total: 15 Speech: Normal Motor strength normal: LUE, RUE, LLE, RLE Sensory: Normal - Psychological Associated symptoms: Anxious - Skin Skin Temperature: Warm Skin Moisture: Diaphoretic Skin Color: Flushed Course - Re-evaluation Re-evalutation: Patient presenting with his normal pain, diaphoresis, red face, patient was witnessed to remove two urethral stones tonight, I did discuss patient with Dr. Velez and afterwards patient was given low doses of ketamine to help him with his procedure. Patient given multiple doses throughout his stay, given IV fluids, after passing stones patient stopped being diaphoretic, heart rate significantly improved, patient appears much more comfortable, patient is requesting to leave. BMP unremarkable, urine shows white blood cells but no leukocyte esterase, bacteria, nitrates. Suspect this is secondary to curette digging in the urethral area. Culture placed. Patient is to see his urologist within 48 hours for his procedure. Tylor return precautions. Patient states understanding and agreement. - Vital Signs Vital signs: Temp Pulse Resp BP Pulse Ox 98.0 F 115 H 20 120/90 H 94 12/28/16 03:19 12/28/16 03:19 12/28/16 03:19 12/28/16 03:19 12/28/16 03:19 - Laboratory Result Diagrams: 12/27/16 21:21 Laboratory results interpreted by me: 12/27/16 12/27/16 21:21 22:40 Carbon Dioxide 21 L Glucose 160 H Urine Protein 100 H Urine Glucose (UA) 50 H Urine Blood LARGE H Discharge - Discharge Clinical Impression: Calculus in urethra, Urethral pain Vomiting Qualifiers: Vomiting type: unspecified Vomiting Intractability: non-intractable Nausea presence: with nausea Qualified Code(s): R11.2 - Nausea with vomiting, unspecified Condition: Stable Disposition: HOME, SELF-CARE Additional Instructions: We have a urine culture growing in our laboratory. Please follow-up on Wednesday as planned with your urologist. Return to the emergency department for any concerning or worsening symptoms including fever, vomiting, severe pain, etc.
[2016-12-27 22:12] LABS: ANION GAP 16 (5-19); BLOOD UREA NITROGEN 17 mg/dL (7-20); CALCIUM 9.5 mg/dL (8.4-10.2); CARBON DIOXIDE 21 mmol/L (22-30); CHLORIDE 102 mmol/L (98-107); CREATININE RESULT 0.87 mg/dL (0.52-1.25); GLUCOSE 160 mg/dL (75-110); POTASSIUM 3.7 mmol/L (3.6-5.0); SODIUM 138.8 mmol/L (137-145)
[2016-12-27] MEDS ORDERED: KETAMINE HCL INJ 500 MG/10 ML VIAL IV ONE ×2 (22:30→23:36)
[2016-12-27 23:06] LABS: APPEARANCE,URINE CLOUDY; BILIRUBIN,URINE NEGATIVE (NEGATIVE); GLUCOSE, URINE 50 mg/dL (NEGATIVE); KETONES,URINE NEGATIVE (NEGATIVE); LEUKOCYTE ESTERASE,URINE NEGATIVE (NEGATIVE); NITRITE,URINE NEGATIVE (NEGATIVE); PROTEIN,URINE 100 mg/dL (NEGATIVE); URINE SPECIFIC GRAVITY 1.021; UROBILINOGEN,URINE NEGATIVE mg/dL (<2.0)
[2016-12-27] MEDS ORDERED: ONDANSETRON HCL INJ/PF 4 MG/2 ML SDV IV ONE (23:42)
[2016-12-28] MEDS ORDERED: HYDROMORPHONE HCL INJ/PF 2 MG/ML AMPULE IV ONE ×2 (01:06→02:47)
[2016-12-28] MEDS ORDERED: DIPHENHYDRAMINE HCL 50 MG/ML VIAL IV ONE ×3 (01:07→03:21)
[2016-12-28] MEDS ORDERED: DIAZEPAM INJ 10 MG/2 ML DISP.SYRIN IV ONE ×3 (01:07→03:21)
[2016-12-28] MEDS ORDERED: KETAMINE HCL INJ 500 MG/10 ML VIAL IV ONE (01:49)
[2016-12-28 03:19] VITALS: BP 120/90
== END 2016-12-28 03:56 | disposition home or self-care (01) ==
LOC: ER 20:25
DX: N21.1 Calculus in urethra (principal); R11.2 Nausea with vomiting, unspecified; R61 Generalized hyperhidrosis; E11.9 Type 2 diabetes mellitus without complications; R00.0 Tachycardia, unspecified; I10 Essential (primary) hypertension; F17.200 Nicotine dependence, unspecified, uncomplicated
CPT/HCPCS: 96376; 99284; 96361; 96374; 96375; 36415; 87086; 80048; 81001; J3360 ×2; J1200 ×2; J3490 ×4; J1885; J1170 ×2; J2405; J7030 ×2

== ENCOUNTER 2016-12-30 20:42 | Emergency (ER) | payer MEDICAID ==
[2016-12-30] MEDS ORDERED: HYDROMORPHONE HCL INJ/PF 2 MG/ML AMPULE IV ONE ×2 (21:21→22:38)
[2016-12-30] MEDS ORDERED: KETAMINE HCL INJ 500 MG/10 ML VIAL IV ONE ×2 (21:21→22:38)
[2016-12-30] MEDS ORDERED: TAMSULOSIN HCL 0.4 MG CAP.SR.24H PO ONE (21:22)
[2016-12-30] MEDS ORDERED: NORMAL SALINE 1000 ML 1,000 ML IV ONE (21:22)
[2016-12-30] MEDS ORDERED: LIDOCAINE 2% URO-JET 5 ML KIT MM ONE ×2 (21:22→22:38)
[2016-12-30] MEDS ORDERED: KETOROLAC TROMETHAMINE INJ/PF 30 MG/1 ML SDV IV ONE (21:22)
[2016-12-30 21:32] LABS: ABSOLUTE BASOPHILS # (AUTO) 0.1 10^3/uL (0.0-0.2); ABSOLUTE EOSINOPHILS # (AUTO) 0.3 10^3/uL (0.0-0.6); ABSOLUTE LYMPHOCYTES (AUTO) 2.7 10^3/uL (0.5-4.7); ABSOLUTE MONOCYTES (AUTO) 0.6 10^3/uL (0.1-1.4); ABSOLUTE NEUT (AUTO) 4.9 10^3/uL (1.7-8.2); BASOPHILS % (AUTO) 1.3 % (0-2); EOSINOPHILS % (AUTO) 3.2 % (0-6); HEMATOCRIT 43.1 % (37.9-51.0); HEMOGLOBIN 15.3 g/dL (13.5-17.0); HGB HCT DIFFERENCE 2.8; LYMPHOCYTES % (AUTO) 31.5 % (13-45); MEAN CORPUSCULAR HEMOGLOBIN 32.2 pg (27.0-33.4); MEAN CORPUSCULAR HGB CONC 35.6 g/dL (32.0-36.0); MEAN CORPUSCULAR VOLUME 91 fl (80-97); MONOCYTES % (AUTO) 6.6 % (3-13); RED BLOOD COUNT 4.76 10^6/uL (4.35-5.55); RED CELL DISTRIBUTION WIDTH 13.9 % (11.5-14.0); SEGMENTED NEUTROPHILS % (AUTO) 57.4 % (42-78); WHITE BLOOD COUNT 8.5 10^3/uL (4.0-10.5)
[2016-12-30 21:45] LABS: ALANINE AMINOTRANSFERASE 81 U/L (21-72); ALBUMIN 3.9 g/dL (3.5-5.0); ALKALINE PHOSPHATASE 72 U/L (38-126); ANION GAP 12 (5-19); ASPARTATE AMINO TRANSFERASE 38 U/L (17-59); BILIRUBIN,TOTAL 0.7 mg/dL (0.2-1.3); BLOOD UREA NITROGEN 12 mg/dL (7-20); CALCIUM 9.2 mg/dL (8.4-10.2); CARBON DIOXIDE 29 mmol/L (22-30); CHLORIDE 98 mmol/L (98-107); CREATININE RESULT 0.83 mg/dL (0.52-1.25); GLUCOSE 192 mg/dL (75-110); POTASSIUM 3.5 mmol/L (3.6-5.0); SODIUM 139.3 mmol/L (137-145); TOTAL PROTEIN 6.9 g/dL (6.3-8.2)
[2016-12-30] MEDS ORDERED: ONDANSETRON HCL INJ/PF 4 MG/2 ML SDV ONE ×2 (22:06→22:38)
[2016-12-30] MEDS ORDERED: HYDROMORPHONE HCL INJ/PF 2 MG/ML AMPULE ONE (22:35)
[2016-12-30] MEDS ORDERED: KETAMINE HCL INJ 500 MG/10 ML VIAL ONE (22:35)
[2016-12-30] MEDS ORDERED: ONDANSETRON HCL INJ/PF 4 MG/2 ML SDV IV ONE (22:39)
[2016-12-31] MEDS ORDERED: ONDANSETRON HCL INJ/PF 4 MG/2 ML SDV IV ONE (00:16)
[2016-12-31] MEDS ORDERED: DIAZEPAM INJ 10 MG/2 ML DISP.SYRIN IV ONE (00:16)
[2016-12-31] MEDS ORDERED: HYDROMORPHONE HCL INJ/PF 2 MG/ML AMPULE IV ONE ×2 (00:16→01:42)
[2016-12-31] MEDS ORDERED: NORMAL SALINE 1000 ML 1,000 ML IV ONE (00:16)
[2016-12-31 01:37] LABS: APPEARANCE,URINE CLOUDY; BILIRUBIN,URINE NEGATIVE (NEGATIVE); GLUCOSE, URINE 50 mg/dL (NEGATIVE); KETONES,URINE NEGATIVE (NEGATIVE); LEUKOCYTE ESTERASE,URINE NEGATIVE (NEGATIVE); NITRITE,URINE NEGATIVE (NEGATIVE); PROTEIN,URINE 100 mg/dL (NEGATIVE); URINE SPECIFIC GRAVITY 1.017
[2016-12-31] MEDS ORDERED: KETAMINE HCL INJ 500 MG/10 ML VIAL IV ONE (01:42)
[2016-12-31] MEDS ORDERED: DIPHENHYDRAMINE HCL 50 MG/ML VIAL IV ONE (01:42)
--- NOTE | 2016-12-31 01:46 | ER Document Report ---
ED General - General Chief Complaint: Possible Kidney Stone Stated Complaint: KIDNEY STONES Notes: Patient is a 46-year-old male well-known to me who presents again with recurrent right-sided flank pain, hematuria and vomiting. States this is identical to prior presentations of kidney stones. He recently had cauterization of his urethra done at [facility] was told that he had 2 remaining stones. He feels he is currently passing one at this time. Does describe severe, constant pain in his right flank radiating into his testicles and penis. Nothing improves or worsens his pain. He has had multiple associated episodes of vomiting. TRAVEL OUTSIDE OF THE [place] IN LAST 30 DAYS: No - Related Data Allergies/Adverse Reactions: fentanyl Adverse Reaction (Verified 12/21/16 04:20) trazodone [Trazodone] Adverse Reaction (Verified 12/21/16 04:20) Past Medical History - General Information source: Patient - Social History Smoking Status: Never Smoker Frequency of alcohol use: None Drug Abuse: None Lives with: Spouse/Significant other Family History: Reviewed & Not Pertinent - Past Medical History Cardiac Medical History: Reports: Hx Hypercholesterolemia, Hx Hypertension Endocrine Medical History: Reports: Hx Diabetes Mellitus Type 2 Renal/ Medical History: Reports: Hx Kidney Stones. Denies: Hx Peritoneal Dialysis GI Medical History: Reports: Hx Gastroesophageal Reflux Disease, Hx Hiatal Hernia Musculoskeltal Medical History: Reports Hx Musculoskeletal Trauma Traumatic Medical History: Reports: Hx Spine Fracture Past Surgical History: Reports: Hx Cholecystectomy, Hx Orthopedic Surgery - Neck fusion, chronic pain - Immunizations Hx Diphtheria, Pertussis, Tetanus Vaccination: No Review of Systems - Review of Systems Notes: Constitutional: Negative for fever. HENT: Negative for sore throat. Eyes: Negative for visual changes. Cardiovascular: Negative for chest pain. Respiratory: Negative for shortness of breath. Gastrointestinal: Positive for right flank pain and vomiting Genitourinary: Negative for dysuria. Positive for hematuria Musculoskeletal: Negative for back pain. Skin: Negative for rash. Neurological: Negative for headaches, weakness or numbness. 10 point ROS negative except as marked above and in HPI. Physical Exam - Vital signs Vitals: Temp Pulse Resp BP Pulse Ox 98.7 F 129 H 23 H 162/105 H 95 12/30/16 20:56 12/30/16 20:56 12/30/16 20:56 12/30/16 20:56 12/30/16 20:56 Interpretation: Tachycardic Notes: PHYSICAL EXAMINATION: GENERAL: Uncomfortable, pale, diaphoretic HEAD: Atraumatic, normocephalic. EYES: Pupils equal round and reactive to light, extraocular movements intact, sclera anicteric, conjunctiva are normal. ENT: nares patent, oropharynx clear without exudates. Moist mucous membranes. NECK: Normal range of motion, supple without lymphadenopathy LUNGS: Breath sounds clear to auscultation bilaterally and equal. No wheezes rales or rhonchi. HEART: Regular rate and rhythm without murmurs ABDOMEN: Soft, nontender, normoactive bowel sounds. No guarding, no rebound. Right CVA tenderness to palpation EXTREMITIES: Normal range of motion, no pitting or edema. No cyanosis. NEUROLOGICAL: No focal neurological deficits. Moves all extremities spontaneously and on command. PSYCH: Normal mood, normal affect. SKIN: Warm, diaphoretic, normal turgor, no rashes or lesions noted. Course - Re-evaluation Re-evalutation: 12/31/16 04:13 Presents with findings consistent with acute nephrolithiasis. Patient has been seen repeatedly for the same presentation and does have recurrent kidney stones. Urinalysis does show hematuria. Laboratory otherwise unremarkable. Pain was able to be controlled here in the emergency department. Patient is tolerating oral intake. Clinical history is not consistent with an acute abdominal aneurysm or dissection, NH, or pulmonary embolus. Urinalysis does not show findings consistent with an infected stone. Vitals have remained within normal limits. Patient will be discharged with recommendations to follow -up with urology, pain medications, and return precautions. They are in agreement with this plan and verbalized indications return to emergency department. - Vital Signs Vital signs: Temp Pulse Resp BP Pulse Ox 97.9 F 106 H 20 148/103 H 94 12/31/16 02:14 12/31/16 02:14 12/31/16 02:14 12/31/16 02:14 12/31/16 02:14 - Laboratory Result Diagrams: 12/30/16 21:01 12/30/16 21:01 Laboratory results interpreted by me: 12/30/16 12/30/16 21:01 23:51 Potassium 3.5 L Glucose 192 H ALT 81 H Urine Protein 100 H Urine Glucose (UA) 50 H Urine Blood LARGE H Urine Urobilinogen 2.0 H Discharge - Discharge Clinical Impression: Kidney stone on right side, Hematuria Condition: Good Disposition: HOME, SELF-CARE Additional Instructions: Follow-up with your urologist as scheduled. Return if you have recurrence your symptoms or have any new or worsening symptoms that are concerning to you.
[2016-12-31 02:24] VITALS: BP 148/103
== END 2016-12-31 02:24 | disposition home or self-care (01) ==
LOC: ER 20:42
DX: N20.0 Calculus of kidney (principal); R31.9 Hematuria, unspecified; E78.00 Pure hypercholesterolemia, unspecified; I10 Essential (primary) hypertension; E11.9 Type 2 diabetes mellitus without complications; Z87.442 Personal history of urinary calculi; Z90.49 Acquired absence of other specified parts of digestive tract
CPT/HCPCS: 96376; 99284; 96361; 96374; 96375; 36415; 85025; 80053; 81001; J3360; J1200; J3490 ×4; J1885; J1170 ×2; J2405 ×2; J7030 ×2

== ENCOUNTER 2017-01-01 00:02 | Emergency (ER) | payer MEDICAID ==
[2017-01-01] MEDS ORDERED: LIDOCAINE 2% URO-JET 5 ML KIT MM ONE ×3 (01:50→06:17)
[2017-01-01] MEDS ORDERED: HYDROMORPHONE HCL INJ/PF 2 MG/ML AMPULE IV ONE ×6 (01:50→07:33)
[2017-01-01] MEDS ORDERED: PROMETHAZINE HCL INJ 25 MG/1 ML VIAL IM ONE (01:50)
[2017-01-01] MEDS ORDERED: ONDANSETRON HCL INJ/PF 4 MG/2 ML SDV IV ONE ×3 (01:50→08:43)
[2017-01-01] MEDS ORDERED: NORMAL SALINE 1000 ML 1,000 ML IV ONE (01:54)
[2017-01-01] MEDS ORDERED: DIAZEPAM INJ 10 MG/2 ML DISP.SYRIN IV ONE ×7 (01:55→08:37)
--- NOTE | 2017-01-01 02:19 | ER Document Report ---
ED General - General Chief Complaint: Possible Kidney Stone Stated Complaint: FLANK PAIN Notes: Patient is 46-year-old male presents with complaint of a kidney stone. He's been seen here several times the past for some like kidney stones. He has a history of uric acid stones. He recently saw carpenter's assistant at [facility] who performed a procedure to remove scarring in his urethra. He was told that he had 2 stones left. He was seen here last night and passed one of him. This is the second stone according to him. He said no fevers. He does have vomiting. Does have pain. Pain is mostly in his lower pelvis and into his genital region. No other complaints at this time. Patient says the pain feels exactly like his typical kidney stone pain. TRAVEL OUTSIDE OF THE [place] IN LAST 30 DAYS: No - Related Data Allergies/Adverse Reactions: fentanyl Adverse Reaction (Verified 12/21/16 04:20) trazodone [Trazodone] Adverse Reaction (Verified 12/21/16 04:20) Past Medical History - Social History Smoking Status: Never Smoker Chew tobacco use (# tins/day): No Frequency of alcohol use: Occasional Drug Abuse: None Family History: Reviewed & Not Pertinent Patient has suicidal ideation: No Patient has homicidal ideation: No - Past Medical History Cardiac Medical History: Reports: Hx Hypercholesterolemia, Hx Hypertension Endocrine Medical History: Reports: Hx Diabetes Mellitus Type 2 Renal/ Medical History: Reports: Hx Kidney Stones. Denies: Hx Peritoneal Dialysis GI Medical History: Reports: Hx Gastroesophageal Reflux Disease, Hx Hiatal Hernia Musculoskeltal Medical History: Reports Hx Musculoskeletal Trauma Traumatic Medical History: Reports: Hx Spine Fracture Past Surgical History: Reports: Hx Cholecystectomy, Hx Orthopedic Surgery - Neck fusion, chronic pain - Immunizations Hx Diphtheria, Pertussis, Tetanus Vaccination: No Review of Systems - Review of Systems Notes: My Normal Review Basic REVIEW OF SYSTEMS: CONSTITUTIONAL : Denies fever, chills, or sweats. Denies recent illness. RESPIRATORY: Denies cough, cold, or chest congestion. Denies shortness of breath, difficulty breathing, or wheezing. GASTROINTESTINAL: Suprapubic abdominal pain. Denies nausea, vomiting, or diarrhea. Denies constipation. Last BM: GENITOURINARY: Kidney stones MUSCULOSKELETAL: Denies neck or back pain or joint pain or swelling. SKIN: Denies rash or skin lesions. NEUROLOGICAL: Denies altered mental status or loss of consciousness. Denies headache. Denies weakness or paralysis or loss of use of either side. Denies problems with gait or speech. Denies sensory or motor loss. ALL OTHER SYSTEMS REVIEWED AND NEGATIVE. Physical Exam - Vital signs Vitals: Temp Pulse Resp BP Pulse Ox 97.5 F 109 H 24 H 187/119 H 95 01/01/17 00:15 01/01/17 00:15 01/01/17 00:15 01/01/17 00:15 01/01/17 00:15 - Notes Notes: General Appearance: Well nourished, alert, cooperative, no acute distress, moderate to severe obvious discomfort. Vitals: reviewed, See vital signs table. Head: no swelling or tenderness to the head Eyes: PERRL, EOMI, Conjuctiva clear Mouth: No decreasd moisture Neck: Supple, no neck tenderness, No thyromegaly Lungs: No wheezing, No rales, No rhonci, No accessory muscle use, good air exchange bilaterally. Heart: Tachycardic rate, Regular rythm, No murmur, no rub Abdomen: Normal BS, soft, No rigidity, mild suprapubic abdominal tenderness to palpation, No guarding, no rebound, no abdominal masses, no organomegaly Extremities: strength 5/5 in all extremities, good pulses in all extremities, no swelling or tenderness in the extremities, no edema. Skin: warm, dry, appropriate color, no rash Neuro: speech clear, oriented x 3, normal affect, responds appropriately to questions. Course - Vital Signs Vital signs: Temp Pulse Resp BP Pulse Ox 98.8 F 102 H 23 H 160/108 H 96 01/01/17 02:00 01/01/17 02:00 01/01/17 02:00 01/01/17 02:00 01/01/17 02:00 - Transfer of Care Notes: 01/01/17 08:39 Patient still has some pain which is understandable but at least is now manageable to the point where he wants to go home. Patient did require large amount of medications to get his pain under control so that he could pass the stone. This is not atypical for him as he has been here many times in the past has also required large doses of medications. Despite these dosages patient is wide awake and alert and not at all sedated appearing. Patient is requesting to be discharged home now. He has passed a stone. Patient will be discharged home. He is strongly encouraged follow closely with his urologist. He's encouraged return to ER immediately if has worsening pain, fevers, or feels that he is passing another stone. Patient agrees with plan and will be discharged home. Dictation of this chart was performed using voice recognition software; therefore, there may be some unintended grammatical errors. Discharge - Discharge Clinical Impression: Calculus in urethra, Hematuria Condition: Good Disposition: HOME, SELF-CARE Additional Instructions: Please return to the ER immediately if you have worsening pain, feel that your are passing another stone, fevers, or feel unwell. Please follow up closely with your urologist at [facility]. Forms: Return to Work
[2017-01-01] MEDS ORDERED: TAMSULOSIN HCL 0.4 MG CAP.SR.24H PO ONE (02:32)
[2017-01-01] MEDS ORDERED: PROMETHAZINE HCL INJ 25 MG/1 ML VIAL ONE (02:33)
[2017-01-01] MEDS ORDERED: KETAMINE HCL INJ 500 MG/10 ML VIAL IV ONE ×4 (02:43→08:09)
[2017-01-01] MEDS ORDERED: DIPHENHYDRAMINE HCL 50 MG/ML VIAL IV ONE (06:15)
[2017-01-01 09:08] VITALS: BP 152/94
== END 2017-01-01 08:57 | disposition home or self-care (01) ==
LOC: ER 00:02
DX: N21.1 Calculus in urethra (principal); R31.9 Hematuria, unspecified; E78.00 Pure hypercholesterolemia, unspecified; I10 Essential (primary) hypertension; E11.9 Type 2 diabetes mellitus without complications; K21.9 Gastro-esophageal reflux disease without esophagitis; Z87.442 Personal history of urinary calculi; Z90.49 Acquired absence of other specified parts of digestive tract; Z98.1 Arthrodesis status
CPT/HCPCS: 96376; 99283; 96372; 96361; 96374; 96375; J3360; J1200; J3490 ×3; J1170; J2550; J2405; J7030

== ENCOUNTER 2017-01-03 20:15 | Emergency (ER) | payer MEDICAID ==
[2017-01-03] MEDS ORDERED: HYDROMORPHONE HCL INJ/PF 2 MG/ML AMPULE IV ONE ×2 (20:49→23:22)
[2017-01-03] MEDS ORDERED: DIAZEPAM INJ 10 MG/2 ML DISP.SYRIN IV ONE ×2 (20:49→23:22)
--- NOTE | 2017-01-03 21:31 | ER Document Report ---
ED General - General Stated Complaint: FLANK PAIN Time seen by provider: 21:31 Mode of Arrival: Ambulatory Information source: Patient TRAVEL OUTSIDE OF THE [place] IN LAST 30 DAYS: No - HPI Patient complains to provider of: low back pain, peripheral edema Onset: This morning Onset/Duration: Gradual, Persistent Quality of pain: Achy, Fullness, Pressure Severity: Moderate Pain Level: 3 Associated symptoms: Body/muscle aches Exacerbated by: Movement Relieved by: Denies Similar symptoms previously: Yes Recently seen / treated by doctor: Yes Notes: Patient is a 46-year-old male who is well-known to this emergency room for multiple visits for related to kidney stones, he has a history of chronic low back pain from herniated disks, he presents tonight complaining of low back pain with edema to his bilateral lower extremities in his hands, he has a history of peripheral edema in the past, takes Lasix 40 mg daily, but states this is worse than usual, he feels fullness and pain in his legs, he denies any fevers, he denies having any change in medications recently, he reports feeling abdominal bloating and decreased appetite, occasional stabbing chest pain, he recently had a cystoscopy procedure to release structures in his urethra - Related Data Allergies/Adverse Reactions: fentanyl Adverse Reaction (Verified 12/21/16 04:20) trazodone [Trazodone] Adverse Reaction (Verified 12/21/16 04:20) Past Medical History - General Information source: Patient - Social History Smoking Status: Current Every Day Smoker Family History: Reviewed & Not Pertinent - Past Medical History Cardiac Medical History: Reports: Hx Hypercholesterolemia, Hx Hypertension Endocrine Medical History: Reports: Hx Diabetes Mellitus Type 2 Renal/ Medical History: Reports: Hx Kidney Stones. Denies: Hx Peritoneal Dialysis GI Medical History: Reports: Hx Gastroesophageal Reflux Disease, Hx Hiatal Hernia Musculoskeltal Medical History: Reports Hx Musculoskeletal Trauma Traumatic Medical History: Reports: Hx Spine Fracture Past Surgical History: Reports: Hx Cholecystectomy, Hx Orthopedic Surgery - Neck fusion, chronic pain - Immunizations Hx Diphtheria, Pertussis, Tetanus Vaccination: No Review of Systems - Review of Systems Constitutional: No symptoms reported EENT: No symptoms reported Cardiovascular: Chest pain, Edema Respiratory: Short of breath Gastrointestinal: No symptoms reported Genitourinary: No symptoms reported Male Genitourinary: No symptoms reported Musculoskeletal: See HPI Skin: No symptoms reported Hematologic/Lymphatic: No symptoms reported Neurological/Psychological: No symptoms reported -: Yes All other systems reviewed and negative Physical Exam - Vital signs Vitals: Temp Pulse Resp BP Pulse Ox 98.4 F 98 20 170/114 H 96 01/03/17 20:25 01/03/17 20:25 01/03/17 20:25 01/03/17 20:25 01/03/17 20:25 Interpretation: Hypertensive - General General appearance: Alert In distress: Mild - Appears uncomfortable - HEENT Head: Normocephalic, Atraumatic Eyes: Normal Pupils: PERRL - Respiratory Respiratory status: No respiratory distress Chest status: Nontender Breath sounds: Normal Chest palpation: Normal - Cardiovascular Rhythm: Regular Heart sounds: Normal auscultation Murmur: No - Abdominal Inspection: Normal Distension: Distended - Mild, Tympanitic Bowel sounds: Normal Tenderness: Nontender Organomegaly: No organomegaly - Back Back: Normal, Nontender - Extremities General upper extremity: Normal inspection, Edema - Mild, Normal color, Normal ROM, Normal temperature General lower extremity: Normal inspection, Edema, Normal color, Normal ROM, Normal temperature. No: Nathaniel's sign - Neurological Neuro grossly intact: Yes Cognition: Normal Orientation: AAOx4 [place] Coma Scale Eye Opening: Spontaneous [place] Coma Scale Verbal: Oriented Joyce Coma Scale Motor: Obeys Commands Joyce Coma Scale Total: 15 Speech: Normal Motor strength normal: LUE, RUE, LLE, RLE Sensory: Normal - Psychological Associated symptoms: Normal affect, Normal mood, Tearful - Skin Skin Temperature: Warm Skin Moisture: Dry Skin Color: Normal Course - Re-evaluation Re-evalutation: 01/04/17 04:41 Lab and imaging findings reviewed with patient and spouse at bedside which are fairly unremarkable, he does have pitting edema to his bilateral lower extremities, and mild nonpitting edema to his hands, abdomen is soft and nontender, with mild distention, patient has her been in this emergency room multiple times recently and received multiple different medications for treatment of his pain and kidney stones, he also recently had a cystoscopy procedure to release strictures in his urethra, he states he received propofol during that procedure, he denies missing any of his medications including Lasix , workup does not reveal signs of congestive heart failure or kidney failure, patient denies any recent change in his diet, symptoms are consistent with chronic back pain and peripheral edema, he was advised to increase his Lasix dosing to 60 mg a day, elevate his extremities and follow-up with his primary care provider in the next 2-3 days or return if symptoms worsen, patient acknowledges understanding and agreement with this plan - Vital Signs Vital signs: Temp Pulse Resp BP Pulse Ox 98.9 F 87 18 136/84 H 92 01/04/17 02:16 01/04/17 02:16 01/04/17 02:16 01/04/17 02:16 01/04/17 02:16 - Laboratory Result Diagrams: 01/03/17 22:34 01/03/17 23:19 Laboratory results interpreted by me: 01/03/17 01/03/17 01/03/17 22:34 23:06 23:19 RDW 14.4 H Potassium Chloride Carbon Dioxide Glucose ALT Creatine Kinase NT-Pro-B Natriuret Pep 167 H Urine Protein 30 H Urine Glucose (UA) 50 H Urine Urobilinogen 2.0 H 01/03/17 23:19 RDW Potassium 3.5 L Chloride 96 L Carbon Dioxide 33 H Glucose 134 H ALT 74 H Creatine Kinase 264 H NT-Pro-B Natriuret Pep Urine Protein Urine Glucose (UA) Urine Urobilinogen - Diagnostic Test Radiology reviewed: Image reviewed, Reports reviewed - EKG Interpretation by Me EKG shows normal: Sinus rhythm Rate: Normal Rhythm: NSR Discharge - Discharge Clinical Impression: Peripheral edema Low back pain Qualifiers: Chronicity: chronic Back pain laterality: bilateral Sciatica presence: with sciatica Sciatica laterality: bilateral sciatica Qualified Code(s): M54.42 - Lumbago with sciatica, left side Condition: Stable Disposition: HOME, SELF-CARE Instructions: Edema, Peripheral ([facility]), Low Back Pain ([facility]) Additional Instructions: Follow up with your primary care provider in one to 2 days. Return to the emergency room immediately if symptoms worsen or any additional concerns. Increase your Lasix dosing to 60 mg daily until excess fluid is decreased. Referrals: [Primary Care Provider] - Follow up as needed
[2017-01-03 22:47] LABS: ABSOLUTE BASOPHILS # (AUTO) 0.1 10^3/uL (0.0-0.2); ABSOLUTE EOSINOPHILS # (AUTO) 0.3 10^3/uL (0.0-0.6); ABSOLUTE LYMPHOCYTES (AUTO) 2.6 10^3/uL (0.5-4.7); ABSOLUTE MONOCYTES (AUTO) 0.7 10^3/uL (0.1-1.4); ABSOLUTE NEUT (AUTO) 4.7 10^3/uL (1.7-8.2); EOSINOPHILS % (AUTO) 4.1 % (0-6); HEMATOCRIT 40.9 % (37.9-51.0); HEMOGLOBIN 14.5 g/dL (13.5-17.0); HGB HCT DIFFERENCE 2.6; LYMPHOCYTES % (AUTO) 30.4 % (13-45); MEAN CORPUSCULAR HEMOGLOBIN 32.3 pg (27.0-33.4); MEAN CORPUSCULAR HGB CONC 35.5 g/dL (32.0-36.0); MEAN CORPUSCULAR VOLUME 91 fl (80-97); MONOCYTES % (AUTO) 8.6 % (3-13); RED BLOOD COUNT 4.49 10^6/uL (4.35-5.55); RED CELL DISTRIBUTION WIDTH 14.4 % (11.5-14.0); SEGMENTED NEUTROPHILS % (AUTO) 55.9 % (42-78); WHITE BLOOD COUNT 8.5 10^3/uL (4.0-10.5)
--- NOTE | 2017-01-03 23:45 | EKG REPORT ---
SEVERITY:- NORMAL ECG - SINUS RHYTHM : Confirmed by: Dedrick Alberto 03-Jan-2017 23:44:25
[2017-01-03 23:47] LABS: ALANINE AMINOTRANSFERASE 74 U/L (21-72); ALBUMIN 4.1 g/dL (3.5-5.0); ALKALINE PHOSPHATASE 80 U/L (38-126); ANION GAP 10 (5-19); ASPARTATE AMINO TRANSFERASE 59 U/L (17-59); BILIRUBIN,TOTAL 0.6 mg/dL (0.2-1.3); BLOOD UREA NITROGEN 12 mg/dL (7-20); CALCIUM 8.7 mg/dL (8.4-10.2); CARBON DIOXIDE 33 mmol/L (22-30); CHLORIDE 96 mmol/L (98-107); CREATINE KINASE 264 U/L (55-170); GLUCOSE 134 mg/dL (75-110); POTASSIUM 3.5 mmol/L (3.6-5.0); SODIUM 138.7 mmol/L (137-145); TOTAL PROTEIN 6.6 g/dL (6.3-8.2); URIC ACID 5.7 mg/dL (3.5-8.5)
[2017-01-03 23:59] LABS: CREATINE KINASE MB 1.53 ng/mL (<4.55)
[2017-01-04 00:01] LABS: TROPONIN I < 0.012 ng/mL
[2017-01-04 00:07] LABS: APPEARANCE,URINE CLEAR; BILIRUBIN,URINE NEGATIVE (NEGATIVE); GLUCOSE, URINE 50 mg/dL (NEGATIVE); KETONES,URINE NEGATIVE (NEGATIVE); LEUKOCYTE ESTERASE,URINE NEGATIVE (NEGATIVE); NITRITE,URINE NEGATIVE (NEGATIVE); PROTEIN,URINE 30 mg/dL (NEGATIVE); URINE SPECIFIC GRAVITY 1.021
[2017-01-04] MEDS ORDERED: HYDROMORPHONE HCL INJ/PF 2 MG/ML AMPULE IV ONE (00:33)
[2017-01-04] MEDS ORDERED: FUROSEMIDE INJ/PF 40 MG/4 ML SDV IV ONE (02:05)
[2017-01-04 03:02] VITALS: BP 136/84
== END 2017-01-04 02:20 | disposition home or self-care (01) ==
LOC: ER 20:15
DX: M54.42 Lumbago with sciatica, left side (principal); R60.9 Edema, unspecified; R10.9 Unspecified abdominal pain; M79.1 Myalgia; E78.00 Pure hypercholesterolemia, unspecified; I10 Essential (primary) hypertension; E11.9 Type 2 diabetes mellitus without complications; Z87.442 Personal history of urinary calculi; K21.9 Gastro-esophageal reflux disease without esophagitis; Z90.49 Acquired absence of other specified parts of digestive tract; Z98.1 Arthrodesis status
CPT/HCPCS: 93005; 96376; 99284; 96374; 96375; 36415; 82553; 82550; 84550; 85025; 80053; 81001; 84484; 83880; 93970; 71020; 93010; J3360 ×2; J1940; J1170 ×2

== ENCOUNTER 2017-01-10 21:39 | Emergency (ER) | payer MEDICAID ==
[2017-01-10] MEDS ORDERED: NORMAL SALINE 1000 ML 1,000 ML IV ONE ×2 (21:53→21:56)
[2017-01-10] MEDS ORDERED: ONDANSETRON HCL INJ/PF 4 MG/2 ML SDV IV ONE (21:53)
[2017-01-10] MEDS ORDERED: HYDROMORPHONE HCL INJ/PF 2 MG/ML AMPULE IV ONE ×3 (21:53→23:26)
[2017-01-10] MEDS ORDERED: PROCHLORPERAZINE EDISYLATE INJ 10 MG/2 ML VIAL IM ONE (21:55)
[2017-01-10] MEDS ORDERED: DIPHENHYDRAMINE HCL 50 MG/ML VIAL IV ONE (21:55)
[2017-01-10] MEDS ORDERED: PROCHLORPERAZINE EDISYLATE INJ 10 MG/2 ML VIAL IV ONE (21:56)
--- NOTE | 2017-01-10 21:58 | ER Document Report ---
ED Medical Screen (RME) - General Stated Complaint: FLANK PAIN Time seen by provider: 21:52 Mode of Arrival: Ambulatory Information source: Patient Notes: 46-year-old male complaining of recurrent kidney stones has severe right flank pain. He is actively vomiting and moaning and pacing in the hallway. I have greeted and performed a rapid initial assessment of this patient. A comprehensive ED assessment, evaluation of the patient, analysis of test results , and completion of the medical decision making process will be contacted by additional ED providers. TRAVEL OUTSIDE OF THE [place] IN LAST 30 DAYS: No - Related Data Allergies/Adverse Reactions: fentanyl Adverse Reaction (Verified 12/21/16 04:20) trazodone [Trazodone] Adverse Reaction (Verified 12/21/16 04:20) Past Medical History - Past Medical History Cardiac Medical History: Reports: Hx Hypercholesterolemia, Hx Hypertension Endocrine Medical History: Reports: Hx Diabetes Mellitus Type 2 Renal/ Medical History: Reports: Hx Kidney Stones. Denies: Hx Peritoneal Dialysis GI Medical History: Reports: Hx Gastroesophageal Reflux Disease, Hx Hiatal Hernia Musculoskeltal Medical History: Reports Hx Musculoskeletal Trauma Traumatic Medical History: Reports: Hx Spine Fracture Past Surgical History: Reports: Hx Cholecystectomy, Hx Orthopedic Surgery - Neck fusion, chronic pain - Immunizations Hx Diphtheria, Pertussis, Tetanus Vaccination: No
[2017-01-10] MEDS ORDERED: DIAZEPAM INJ 10 MG/2 ML DISP.SYRIN IV ONE (22:39)
[2017-01-10] MEDS ORDERED: PROMETHAZINE HCL INJ 25 MG/1 ML VIAL IM ONE (22:39)
[2017-01-10] MEDS ORDERED: TAMSULOSIN HCL 0.4 MG CAP.SR.24H PO ONE (22:42)
[2017-01-10 22:45] LABS: ABSOLUTE BASOPHILS # (AUTO) 0.2 10^3/uL (0.0-0.2); ABSOLUTE EOSINOPHILS # (AUTO) 0.4 10^3/uL (0.0-0.6); ABSOLUTE LYMPHOCYTES (AUTO) 4.4 10^3/uL (0.5-4.7); ABSOLUTE MONOCYTES (AUTO) 1.3 10^3/uL (0.1-1.4); ABSOLUTE NEUT (AUTO) 6.7 10^3/uL (1.7-8.2); BASOPHILS % (AUTO) 1.2 % (0-2); EOSINOPHILS % (AUTO) 3.1 % (0-6); HEMATOCRIT 46.9 % (37.9-51.0); HGB HCT DIFFERENCE 1.1; LYMPHOCYTES % (AUTO) 33.9 % (13-45); MEAN CORPUSCULAR HEMOGLOBIN 31.3 pg (27.0-33.4); MEAN CORPUSCULAR HGB CONC 34.2 g/dL (32.0-36.0); MEAN CORPUSCULAR VOLUME 92 fl (80-97); MONOCYTES % (AUTO) 10.3 % (3-13); RED BLOOD COUNT 5.13 10^6/uL (4.35-5.55); RED CELL DISTRIBUTION WIDTH 14.2 % (11.5-14.0); SEGMENTED NEUTROPHILS % (AUTO) 51.5 % (42-78)
--- NOTE | 2017-01-10 22:47 | ER Document Report ---
ED GI/ - General Mode of Arrival: Ambulatory Information source: Patient TRAVEL OUTSIDE OF THE [place] IN LAST 30 DAYS: No - HPI Patient complains to provider of: Flank pain Associated symptoms: Other - See above <CONSTANZA IZAGUIRRE - Last Filed: 01/10/17 23:14> <NAVEED CASEY - Last Filed: 01/11/17 05:14> - General Chief Complaint: Possible Kidney Stone Stated Complaint: FLANK PAIN Notes: Patient is a 46 year old male who presents to the emergency department complaining of flank pain due to a kidney stone. Patient reports that he began to pass the stone about 2.5 hours ago. Patient has a history of passing large painful stones. Patient reports that he has taken Ibuprofen at home but has been vomiting and cannot keep anything down. Patient states that he cannot urinate. Patient's last stone was a little over a week ago. (CONSTANZA IZAGUIRRE) - Related Data Allergies/Adverse Reactions: fentanyl Adverse Reaction (Verified 12/21/16 04:20) trazodone [Trazodone] Adverse Reaction (Verified 12/21/16 04:20) Past Medical History - General Information source: Patient - Social History Smoking Status: Unknown if Ever Smoked Family History: Reviewed & Not Pertinent Patient has suicidal ideation: No Patient has homicidal ideation: No - Past Medical History Cardiac Medical History: Reports: Hx Hypercholesterolemia, Hx Hypertension Endocrine Medical History: Reports: Hx Diabetes Mellitus Type 2 Renal/ Medical History: Reports: Hx Kidney Stones GI Medical History: Reports: Hx Gastroesophageal Reflux Disease, Hx Hiatal Hernia Musculoskeltal Medical History: Reports Hx Musculoskeletal Trauma Traumatic Medical History: Reports: Hx Spine Fracture Past Surgical History: Reports: Hx Cholecystectomy, Hx Orthopedic Surgery - Neck fusion, chronic pain - Immunizations Hx Diphtheria, Pertussis, Tetanus Vaccination: No <CONSTANZA IZAGUIRRE - Last Filed: 01/10/17 23:14> Review of Systems - Review of Systems Constitutional: No symptoms reported EENT: No symptoms reported Cardiovascular: No symptoms reported Respiratory: No symptoms reported Gastrointestinal: No symptoms reported Genitourinary: See HPI, Flank pain, Retention Male Genitourinary: No symptoms reported Musculoskeletal: No symptoms reported Skin: No symptoms reported Hematologic/Lymphatic: No symptoms reported Neurological/Psychological: No symptoms reported -: Yes All other systems reviewed and negative <CONSTANZA IZAGUIRRE - Last Filed: 01/10/17 23:14> Physical Exam - Vital signs Interpretation: Tachycardic - General In distress: Moderate - HEENT Head: Normocephalic, Atraumatic - Respiratory Respiratory status: No respiratory distress - Cardiovascular Rhythm: Tachycardia Heart sounds: Normal auscultation Murmur: No - Abdominal Inspection: Normal Distension: No distension Bowel sounds: Normal Tenderness: Nontender Organomegaly: No organomegaly - Back Back: CVA tenderness - right - Extremities General upper extremity: Normal inspection, Normal ROM, Normal strength General lower extremity: Normal inspection, Normal ROM, Normal strength, Normal weight bearing - Neurological Neuro grossly intact: Yes Cognition: Normal Orientation: AAOx4 Joyce Coma Scale Eye Opening: Spontaneous [place] Coma Scale Verbal: Oriented Joyce Coma Scale Motor: Obeys Commands [place] Coma Scale Total: 15 Speech: Normal Motor strength normal: LUE, RUE, LLE, RLE - Psychological Associated symptoms: Normal affect, Normal mood - Skin Skin Temperature: Warm Skin Moisture: Diaphoretic Skin Color: Normal <CONSTANZA IZAGUIRRE - Last Filed: 01/10/17 23:14> Course - Laboratory Result Diagrams: 01/10/17 22:30 01/10/17 22:30 <CONSTANZA IZAGUIRRE - Last Filed: 01/10/17 23:14> - Laboratory Result Diagrams: 01/10/17 22:30 01/10/17 22:30 <NAVEED CASEY - Last Filed: 01/11/17 05:14> - Re-evaluation Re-evalutation: 01/11/17 Patient has passed 0.5 cm renal stones. Feels better. Has been given Flomax. Patient states that he has medications at home and he does not need prescriptions. Patient will be discharged. Return if any worsening or concerning symptoms. Understands and agrees with plan. Has a urologist to follow up with. (NAVEED CASEY) - Vital Signs Vital signs: Temp Pulse Resp BP Pulse Ox 98.1 F 78 22 H 128/88 H 91 L 01/10/17 23:52 01/10/17 23:52 01/10/17 22:05 01/10/17 23:52 01/10/17 23:52 (CONSTANZA IZAGUIRRE) (NAVEED CASEY) - Laboratory Laboratory results interpreted by me: 01/10/17 01/10/17 22:30 22:30 WBC 13.0 H RDW 14.2 H Chloride 97 L BUN 22 H Creatinine 1.38 H Est GFR (Non-Af Amer) 56 L Glucose 144 H Albumin 5.1 H (NAVEED CASEY) Discharge <CONSTANZA IZAGUIRRE - Last Filed: 01/10/17 23:14> <NAVEED CASEY - Last Filed: 01/11/17 05:14> - Discharge Clinical Impression: Kidney stone on right side, Dehydration Condition: Stable Disposition: HOME, SELF-CARE Instructions: Kidney Stone ([facility]), Dehydration ([facility]) Scribe Attestation: 01/11/17 05:14 I personally performed the services described in the documentation, reviewed and edited the documentation which was dictated to the scribe in my presence, and it accurately records my words and actions. (NAVEED CASEY) Scribe Documentation - Scribe Written by Scribe:: mirta Rodriguez, 01/10/17, [id number] acting as scribe for :: Tash <CONSTANZA IZAGUIRRE - Last Filed: 01/10/17 23:14>
[2017-01-10] MEDS ORDERED: PROMETHAZINE HCL INJ 25 MG/1 ML VIAL ONE (22:59)
[2017-01-10 23:04] LABS: ALANINE AMINOTRANSFERASE 64 U/L (21-72); ALBUMIN 5.1 g/dL (3.5-5.0); ALKALINE PHOSPHATASE 67 U/L (38-126); ANION GAP 14 (5-19); ASPARTATE AMINO TRANSFERASE 40 U/L (17-59); BILIRUBIN,TOTAL 0.8 mg/dL (0.2-1.3); BLOOD UREA NITROGEN 22 mg/dL (7-20); CARBON DIOXIDE 28 mmol/L (22-30); CHLORIDE 97 mmol/L (98-107); CREATININE RESULT 1.38 mg/dL (0.52-1.25); GLUCOSE 144 mg/dL (75-110); POTASSIUM 4.9 mmol/L (3.6-5.0); SODIUM 139.3 mmol/L (137-145)
[2017-01-10] MEDS ORDERED: LIDOCAINE 2% URO-JET 5 ML KIT MM ONE (23:09)
[2017-01-10 23:57] VITALS: BP 128/88
== END 2017-01-10 23:57 | disposition home or self-care (01) ==
LOC: ER 21:39
DX: Z53.9 Procedure and treatment not carried out, unspecified reason (principal); R11.2 Nausea with vomiting, unspecified
CPT/HCPCS: 96376; 99284; 96372; 96374; 96375; 36415; 85025; 80053; J3360; J1200; J1170; J3490 ×2; J0780; J2550; J7030

== ENCOUNTER 2017-01-12 01:22 | Emergency (ER) | payer MEDICAID ==
[2017-01-12] MEDS ORDERED: LIDOCAINE 2% URO-JET 5 ML KIT MM ONE ×2 (01:57→02:33)
[2017-01-12] MEDS ORDERED: KETOROLAC TROMETHAMINE INJ/PF 30 MG/1 ML SDV IV ONE (01:57)
[2017-01-12] MEDS ORDERED: NORMAL SALINE 1000 ML 1,000 ML IV ONE ×2 (01:58→02:34)
[2017-01-12] MEDS ORDERED: ONDANSETRON HCL INJ/PF 4 MG/2 ML SDV IV ONE (01:58)
[2017-01-12 02:14] LABS: ABSOLUTE BASOPHILS # (AUTO) 0.1 10^3/uL (0.0-0.2); ABSOLUTE EOSINOPHILS # (AUTO) 0.5 10^3/uL (0.0-0.6); ABSOLUTE LYMPHOCYTES (AUTO) 4.2 10^3/uL (0.5-4.7); ABSOLUTE NEUT (AUTO) 5.6 10^3/uL (1.7-8.2); BASOPHILS % (AUTO) 0.9 % (0-2); EOSINOPHILS % (AUTO) 4.2 % (0-6); HEMATOCRIT 48.8 % (37.9-51.0); HEMOGLOBIN 16.7 g/dL (13.5-17.0); HGB HCT DIFFERENCE 1.3; LYMPHOCYTES % (AUTO) 36.9 % (13-45); MEAN CORPUSCULAR HEMOGLOBIN 31.5 pg (27.0-33.4); MEAN CORPUSCULAR HGB CONC 34.1 g/dL (32.0-36.0); MEAN CORPUSCULAR VOLUME 92 fl (80-97); MONOCYTES % (AUTO) 8.8 % (3-13); RED BLOOD COUNT 5.29 10^6/uL (4.35-5.55); RED CELL DISTRIBUTION WIDTH 14.6 % (11.5-14.0); SEGMENTED NEUTROPHILS % (AUTO) 49.2 % (42-78); WHITE BLOOD COUNT 11.3 10^3/uL (4.0-10.5)
[2017-01-12 02:30] LABS: ALANINE AMINOTRANSFERASE 62 U/L (21-72); ALBUMIN 4.5 g/dL (3.5-5.0); ALKALINE PHOSPHATASE 68 U/L (38-126); ANION GAP 12 (5-19); ASPARTATE AMINO TRANSFERASE 51 U/L (17-59); BILIRUBIN,TOTAL 0.7 mg/dL (0.2-1.3); BLOOD UREA NITROGEN 15 mg/dL (7-20); CALCIUM 9.6 mg/dL (8.4-10.2); CARBON DIOXIDE 26 mmol/L (22-30); CHLORIDE 99 mmol/L (98-107); CREATININE RESULT 0.78 mg/dL (0.52-1.25); GLUCOSE 157 mg/dL (75-110); LIPASE 64.3 U/L (23-300); POTASSIUM 5.2 mmol/L (3.6-5.0); SODIUM 136.7 mmol/L (137-145); TOTAL PROTEIN 7.9 g/dL (6.3-8.2)
[2017-01-12] MEDS ORDERED: HYDROMORPHONE HCL INJ/PF 2 MG/ML AMPULE IV ONE ×4 (02:33→05:48)
[2017-01-12] MEDS ORDERED: TAMSULOSIN HCL 0.4 MG CAP.SR.24H PO ONE (02:33)
[2017-01-12] MEDS ORDERED: DIAZEPAM INJ 10 MG/2 ML DISP.SYRIN IV ONE ×3 (02:33→05:03)
[2017-01-12] MEDS ORDERED: DIPHENHYDRAMINE HCL 50 MG/ML VIAL IV ONE ×3 (02:34→05:15)
--- NOTE | 2017-01-12 02:35 | ER Document Report ---
ED GI/ - General Chief Complaint: Possible Kidney Stone Stated Complaint: FLANK PAIN Time seen by provider: 02:30 Notes: Patient is a 46-year-old male that comes emergency department for chief complaint of sharp lower abdominal and groin pain on the right side, patient has a known history of uric acid stones which she passes frequently, patient ALSO has a history of urethral stricture and repair, patient is accustomed to being out stones with a curette once they reach the urethra, patient states he feels he is passing at least one stone at this time. Patient has vomited several times tonight. Patient denies fever. Patient is still following with his urologist. TRAVEL OUTSIDE OF THE [place] IN LAST 30 DAYS: No - Related Data Allergies/Adverse Reactions: fentanyl Adverse Reaction (Verified 12/21/16 04:20) trazodone [Trazodone] Adverse Reaction (Verified 12/21/16 04:20) Past Medical History - General Information source: Patient - Social History Smoking Status: Never Smoker Frequency of alcohol use: None Lives with: Family Family History: Reviewed & Not Pertinent Patient has suicidal ideation: No Patient has homicidal ideation: No - Past Medical History Cardiac Medical History: Reports: Hx Hypercholesterolemia, Hx Hypertension Endocrine Medical History: Reports: Hx Diabetes Mellitus Type 2 Renal/ Medical History: Reports: Hx Kidney Stones. Denies: Hx Peritoneal Dialysis GI Medical History: Reports: Hx Gastroesophageal Reflux Disease, Hx Hiatal Hernia Musculoskeltal Medical History: Reports Hx Musculoskeletal Trauma Traumatic Medical History: Reports: Hx Spine Fracture Past Surgical History: Reports: Hx Cholecystectomy, Hx Orthopedic Surgery - Neck fusion, chronic pain - Immunizations Hx Diphtheria, Pertussis, Tetanus Vaccination: No Review of Systems - Review of Systems Constitutional: No symptoms reported EENT: No symptoms reported Cardiovascular: No symptoms reported Respiratory: No symptoms reported Gastrointestinal: See HPI Genitourinary: See HPI Male Genitourinary: See HPI Musculoskeletal: No symptoms reported Skin: No symptoms reported Hematologic/Lymphatic: No symptoms reported Neurological/Psychological: No symptoms reported Physical Exam - Vital signs Vitals: Temp Pulse Resp BP Pulse Ox 97.7 F 110 H 24 H 157/110 H 99 01/12/17 01:26 01/12/17 01:26 01/12/17 01:26 01/12/17 01:26 01/12/17 01:26 Interpretation: Normal - General General appearance: Alert, Anxious In distress: Moderate - Patient diaphoretic, lying on the bed, vomited - HEENT Head: Normocephalic, Atraumatic Eyes: Normal Pupils: PERRL - Respiratory Respiratory status: No respiratory distress Chest status: Nontender Breath sounds: Normal. No: Decreased air movement, Wheezing Chest palpation: Normal - Cardiovascular Rhythm: Regular, Tachycardia Heart sounds: Normal auscultation, S1 appreciated, S2 appreciated Murmur: No - Abdominal Inspection: Normal Distension: No distension Bowel sounds: Normal Tenderness: Tender - Generalized tenderness, nonspecific, no guarding Organomegaly: No organomegaly - Genitourinary Inspection: Normal Tenderness: Nontender Scrotum: Normal - Back Back: Normal, Nontender - Extremities General upper extremity: Normal inspection, Nontender, Normal color, Normal ROM , Normal temperature General lower extremity: Normal inspection, Nontender, Normal color, Normal ROM , Normal temperature, Normal weight bearing. No: Nathaniel's sign - Neurological Neuro grossly intact: Yes Cognition: Normal Orientation: AAOx4 Joyce Coma Scale Eye Opening: Spontaneous [place] Coma Scale Verbal: Oriented Joyce Coma Scale Motor: Obeys Commands [place] Coma Scale Total: 15 Speech: Normal Motor strength normal: LUE, RUE, LLE, RLE Sensory: Normal - Psychological Associated symptoms: Agitated - Skin Skin Temperature: Warm Skin Moisture: Diaphoretic Skin Color: Flushed Course - Re-evaluation Re-evalutation: Patient was discussed with Dr. Bianchi per [facility] guidelines. Labs about baseline. Patient performed his usual routine, eventually was able to remove a stone which I witnessed, afterwards patient is requesting to go home. Requesting to leave without given the urine sample. Patient has had this many times, agrees he will follow-up with urology return if he develops a fever or any other concerning symptoms. - Vital Signs Vital signs: Temp Pulse Resp BP Pulse Ox 98.2 F 90 20 121/76 95 01/12/17 06:24 01/12/17 06:24 01/12/17 06:24 01/12/17 06:24 01/12/17 06:24 - Laboratory Result Diagrams: 01/12/17 01:54 01/12/17 01:54 Laboratory results interpreted by me: 01/12/17 01/12/17 01:54 01:54 WBC 11.3 H RDW 14.6 H Sodium 136.7 L Potassium 5.2 H Glucose 157 H Discharge - Discharge Clinical Impression: Kidney stone on right side, Urethral stone Condition: Stable Disposition: HOME, SELF-CARE Additional Instructions: Follow-up with your urologist for continued management. Return to emergency department for any concerning or worsening symptoms including fever, uncontrolled vomiting, severe pain, etc. Referrals: ELIAS AYALA FNP-C [Primary Care Provider] - Follow up as needed
[2017-01-12] MEDS ORDERED: DIPHENHYDRAMINE HCL 50 MG/ML VIAL ONE (05:06)
[2017-01-12] MEDS ORDERED: DIAZEPAM INJ 10 MG/2 ML DISP.SYRIN ONE (05:06)
[2017-01-12 06:27] VITALS: BP 121/76
== END 2017-01-12 06:24 | disposition home or self-care (01) ==
LOC: ER 01:22
DX: N21.1 Calculus in urethra (principal); R11.10 Vomiting, unspecified; R10.30 Lower abdominal pain, unspecified; R10.817 Generalized abdominal tenderness; R61 Generalized hyperhidrosis; R23.2 Flushing; R00.0 Tachycardia, unspecified; I10 Essential (primary) hypertension; E11.9 Type 2 diabetes mellitus without complications; Z90.49 Acquired absence of other specified parts of digestive tract; Z98.890 Other specified postprocedural states
CPT/HCPCS: 96376; 99284; 96374; 96375; 36415; 83690; 85025; 80053; J3360; J1200; J1885; J1170; J3490 ×2; J2405

== ENCOUNTER 2017-01-14 22:11 | Emergency (ER) | payer MEDICAID ==
[2017-01-14 22:21] VITALS: BP 158/103
[2017-01-14] MEDS ORDERED: ONDANSETRON 4 MG TAB.RAPDIS PO ONE (23:00)
--- NOTE | 2017-01-14 23:02 | ER Document Report ---
ED Medical Screen (RME) - General Chief Complaint: Possible Kidney Stone Stated Complaint: POSSIBLE KIDNEY STONES Time seen by provider: 23:01 Mode of Arrival: Ambulatory Information source: Patient Notes: 6-year-old man presents to ED for nausea vomiting passing blood earlier and now cannot urinate. States he is passing another stone. He states he's got a prescription for some medicine that he supposed to [facility] pick[facility] tomorrow. He has been him here multiple times recently for the same problem. I have greeted and performed a rapid initial assessment of this patient. A comprehensive ED assessment and evaluation of the patient, analysis of test results and completion of medical decision making process will be conducted by an additional ED providers. TRAVEL OUTSIDE OF THE [place] IN LAST 30 DAYS: No - Related Data Allergies/Adverse Reactions: fentanyl Adverse Reaction (Verified 12/21/16 04:20) trazodone [Trazodone] Adverse Reaction (Verified 12/21/16 04:20) Past Medical History - Social History Chew tobacco use (# tins/day): No Frequency of alcohol use: None Drug Abuse: None - Past Medical History Cardiac Medical History: Reports: Hx Hypercholesterolemia, Hx Hypertension Endocrine Medical History: Reports: Hx Diabetes Mellitus Type 2 Renal/ Medical History: Reports: Hx Kidney Stones. Denies: Hx Peritoneal Dialysis GI Medical History: Reports: Hx Gastroesophageal Reflux Disease, Hx Hiatal Hernia Musculoskeltal Medical History: Reports Hx Musculoskeletal Trauma Traumatic Medical History: Reports: Hx Spine Fracture Past Surgical History: Reports: Hx Cholecystectomy, Hx Orthopedic Surgery - Neck fusion, chronic pain - Immunizations Hx Diphtheria, Pertussis, Tetanus Vaccination: No Physical Exam - Vital signs Vitals: Temp Pulse Resp BP Pulse Ox 97.6 F 91 18 158/103 H 97 01/14/17 22:15 01/14/17 22:15 01/14/17 22:15 01/14/17 22:15 01/14/17 22:15 Course - Vital Signs Vital signs: Temp Pulse Resp BP Pulse Ox 97.6 F 91 18 158/103 H 97 01/14/17 22:15 01/14/17 22:15 01/14/17 22:15 01/14/17 22:15 01/14/17 22:15
== END 2017-01-15 00:45 | disposition left against medical advice (07) ==
LOC: ER 22:11
DX: R11.2 Nausea with vomiting, unspecified (principal); R39.89 Other symptoms and signs involving the genitourinary system; I10 Essential (primary) hypertension; E11.9 Type 2 diabetes mellitus without complications; Z87.442 Personal history of urinary calculi; Z90.49 Acquired absence of other specified parts of digestive tract; Z53.20 Procedure and treatment not carried out because of patient's decision for unspecified reasons
CPT/HCPCS: 99281; S0119

== ENCOUNTER 2017-01-24 00:57 | Emergency (ER) | payer MEDICAID ==
[2017-01-24] MEDS ORDERED: DIAZEPAM INJ 10 MG/2 ML DISP.SYRIN IV ONE ×4 (01:44→10:34)
[2017-01-24] MEDS ORDERED: DIPHENHYDRAMINE HCL 50 MG/ML VIAL IV ONE ×3 (01:44→06:47)
[2017-01-24] MEDS ORDERED: HYDROMORPHONE HCL INJ/PF 2 MG/ML AMPULE IV ONE ×4 (01:44→10:34)
[2017-01-24] MEDS ORDERED: ONDANSETRON HCL INJ/PF 4 MG/2 ML SDV IV ONE ×2 (01:44→06:47)
[2017-01-24] MEDS ORDERED: NORMAL SALINE 1000 ML 1,000 ML IV ONE ×2 (01:45→04:46)
[2017-01-24] MEDS ORDERED: LIDOCAINE 2% URO-JET 5 ML KIT MM ONE (01:45)
[2017-01-24] MEDS ORDERED: TAMSULOSIN HCL 0.4 MG CAP.SR.24H PO ONE (01:45)
--- NOTE | 2017-01-24 01:46 | ER Document Report ---
Addendum entered and electronically signed by NITA LATHAM NP 01/24/17 10:35 : Course - Re-evaluation Re-evalutation: 01/24/17 10:35 Patient ready to be discharged home. Patient reports he started have some more pain on the right side. He is worried that another kidney stone is starting. Patient was offered to stay for treatment but request pain medication some Valium and reports he will go home and rest. He reports either the pain will subside or get worse. If he gets worse he would come back. - Vital Signs Vital signs: Temp Pulse Resp BP Pulse Ox 98.2 F 95 18 150/110 H 98 01/24/17 10:34 01/24/17 10:34 01/24/17 10:34 01/24/17 10:34 01/24/17 10:34 - Laboratory Result Diagrams: 01/24/17 01:53 Laboratory results interpreted by me: 01/24/17 01/24/17 01:53 03:45 Sodium 133.0 L Potassium 5.3 H Chloride 97 L Carbon Dioxide 21 L BUN 26 H Glucose 154 H Urine Protein 30 H Urine Blood LARGE H Original Note: ED GI/ - General Chief Complaint: Possible Kidney Stone Stated Complaint: POSSIBLE KIDNEY STONES Notes: Patient is a 46-year-old male that comes emergency department with chief complaint of passing a kidney stone on the right side, patient is a known history of uric acid stones, patient has had a recent procedure to remove a stricture in the urethra, patient has been placed on a new diet and medications , patient states that he has been doing much better and over the past 10 days he was even able to pass one stone at home by himself and has had minimal trouble. Patient states that tonight he vomited multiple times and the pain became sharp prompting him to come emergency department. He denies any fevers. TRAVEL OUTSIDE OF THE [place] IN LAST 30 DAYS: No - Related Data Allergies/Adverse Reactions: fentanyl Adverse Reaction (Verified 12/21/16 04:20) trazodone [Trazodone] Adverse Reaction (Verified 12/21/16 04:20) Past Medical History - General Information source: Patient - Social History Smoking Status: Current Every Day Smoker Chew tobacco use (# tins/day): No Drug Abuse: None Lives with: Family Family History: Reviewed & Not Pertinent Patient has suicidal ideation: No Patient has homicidal ideation: No - Past Medical History Cardiac Medical History: Reports: Hx Hypercholesterolemia, Hx Hypertension Endocrine Medical History: Reports: Hx Diabetes Mellitus Type 2 Renal/ Medical History: Reports: Hx Kidney Stones. Denies: Hx Peritoneal Dialysis GI Medical History: Reports: Hx Gastroesophageal Reflux Disease, Hx Hiatal Hernia Musculoskeltal Medical History: Reports Hx Musculoskeletal Trauma Traumatic Medical History: Reports: Hx Spine Fracture Past Surgical History: Reports: Hx Cholecystectomy, Hx Orthopedic Surgery - Neck fusion, chronic pain - Immunizations Hx Diphtheria, Pertussis, Tetanus Vaccination: No Review of Systems - Review of Systems Constitutional: No symptoms reported EENT: No symptoms reported Cardiovascular: No symptoms reported Respiratory: No symptoms reported Gastrointestinal: No symptoms reported Genitourinary: See HPI Male Genitourinary: See HPI Musculoskeletal: No symptoms reported Skin: No symptoms reported Hematologic/Lymphatic: No symptoms reported Neurological/Psychological: No symptoms reported Physical Exam - Vital signs Vitals: Temp Pulse Resp BP Pulse Ox 97.3 F 121 H 21 H 168/110 H 95 01/24/17 01:03 01/24/17 01:03 01/24/17 01:03 01/24/17 01:03 01/24/17 01:03 Interpretation: Normal - General General appearance: Alert, Anxious In distress: Moderate - Patient flushed, diaphoretic, bent over the bed, appears to be in pain - HEENT Head: Normocephalic, Atraumatic Eyes: Normal Pupils: PERRL - Respiratory Respiratory status: No respiratory distress Chest status: Nontender Breath sounds: Normal Chest palpation: Normal - Cardiovascular Rhythm: Regular, Tachycardia Heart sounds: Normal auscultation, S1 appreciated, S2 appreciated Murmur: No - Abdominal Inspection: Normal Distension: No distension Bowel sounds: Normal Tenderness: Tender - Mild generalized lower abdominal tenderness Organomegaly: No organomegaly - Back Back: Normal, Nontender. No: Tender - Extremities General upper extremity: Normal inspection, Nontender, Normal color, Normal ROM , Normal temperature General lower extremity: Normal inspection, Nontender, Normal color, Normal ROM , Normal temperature, Normal weight bearing. No: Nathaniel's sign - Neurological Neuro grossly intact: Yes Cognition: Normal Orientation: AAOx4 [place] Coma Scale Eye Opening: Spontaneous [place] Coma Scale Verbal: Oriented [place] Coma Scale Motor: Obeys Commands [place] Coma Scale Total: 15 Speech: Normal Motor strength normal: LUE, RUE, LLE, RLE Sensory: Normal - Psychological Associated symptoms: Anxious - Skin Skin Temperature: Warm Skin Moisture: Diaphoretic Skin Color: Flushed Course - Re-evaluation Re-evalutation: Urine with no nitrates, no leukocyte esterase, patient does not have a fever. No acute renal injury, slight hyperkalemia and hyponatremia, patient given 2 boluses of normal saline IV fluids. Patient was able to pass to urethral stones after treatment with pain and nausea medications, patient afterwards was ready to leave, states he will follow-up with his urologist, states over return if he develops a fever or any other concerning symptoms. - Vital Signs Vital signs: Temp Pulse Resp BP Pulse Ox 97.3 F 92 14 102/77 95 01/24/17 01:03 01/24/17 03:53 01/24/17 07:15 01/24/17 07:15 01/24/17 07:15 - Laboratory Result Diagrams: 01/24/17 01:53 Laboratory results interpreted by me: 01/24/17 01/24/17 01:53 03:45 Sodium 133.0 L Potassium 5.3 H Chloride 97 L Carbon Dioxide 21 L BUN 26 H Glucose 154 H Urine Protein 30 H Urine Blood LARGE H Discharge - Discharge Clinical Impression: Urethral stone Condition: Stable Disposition: HOME, SELF-CARE Additional Instructions: Follow-up with your urologist for additional management. Continue your current medications and diet. Return to emergency department for any concerning symptoms. Referrals: ELIAS AYALA FNP-C [Primary Care Provider] - Follow up as needed
[2017-01-24 02:34] LABS: ANION GAP 15 (5-19); BLOOD UREA NITROGEN 26 mg/dL (7-20); CALCIUM 9.4 mg/dL (8.4-10.2); CARBON DIOXIDE 21 mmol/L (22-30); CHLORIDE 97 mmol/L (98-107); CREATININE RESULT 1.09 mg/dL (0.52-1.25); GLUCOSE 154 mg/dL (75-110); POTASSIUM 5.3 mmol/L (3.6-5.0)
[2017-01-24 04:11] LABS: APPEARANCE,URINE SLIGHTLY-CLOUDY; BILIRUBIN,URINE NEGATIVE (NEGATIVE); GLUCOSE, URINE NEGATIVE (NEGATIVE); KETONES,URINE NEGATIVE (NEGATIVE); LEUKOCYTE ESTERASE,URINE NEGATIVE (NEGATIVE); NITRITE,URINE NEGATIVE (NEGATIVE); PROTEIN,URINE 30 mg/dL (NEGATIVE); URINE SPECIFIC GRAVITY 1.009; UROBILINOGEN,URINE NEGATIVE mg/dL (<2.0)
[2017-01-24] MEDS ORDERED: KETOROLAC TROMETHAMINE INJ/PF 30 MG/1 ML SDV IV ONE (07:05)
[2017-01-24 10:34] VITALS: BP 150/110
== END 2017-01-24 10:45 | disposition home or self-care (01) ==
LOC: ER 00:57
DX: N20.1 Calculus of ureter (principal); R11.10 Vomiting, unspecified; F17.210 Nicotine dependence, cigarettes, uncomplicated
CPT/HCPCS: 96376; 99284; 96374; 96375; 36415; 80048; 81001; J3360; J1200; J1885; J1170; J3490 ×2; J2405; J7030

== ENCOUNTER 2017-01-24 21:52 | Emergency (ER) | payer MEDICAID ==
[2017-01-24] MEDS ORDERED: ONDANSETRON HCL INJ/PF 4 MG/2 ML SDV IV ONE (22:07)
[2017-01-24] MEDS ORDERED: KETOROLAC TROMETHAMINE INJ/PF 30 MG/1 ML SDV IV ONE (22:22)
[2017-01-24] MEDS ORDERED: LIDOCAINE 2% URO-JET 5 ML KIT MM ONE (22:22)
[2017-01-24] MEDS ORDERED: HYDROMORPHONE HCL INJ/PF 2 MG/ML AMPULE IV PRN (22:22)
[2017-01-24] MEDS ORDERED: KETAMINE HCL INJ 500 MG/10 ML VIAL IV PRN (22:23)
[2017-01-24] MEDS ORDERED: NORMAL SALINE 1000 ML 1,000 ML IV ONE (22:23)
[2017-01-24] MEDS ORDERED: TAMSULOSIN HCL 0.4 MG CAP.SR.24H PO ONE (22:23)
[2017-01-24] MEDS: HYDROMORPHONE HCL INJ/PF 2 MG/ML AMPULE IV PRN (22:43)
[2017-01-24] MEDS: DIAZEPAM INJ 10 MG/2 ML DISP.SYRIN IV PRN (22:44)
[2017-01-24] MEDS ORDERED: KETAMINE HCL INJ 500 MG/10 ML VIAL IV ONE (23:06)
--- NOTE | 2017-01-24 23:09 | ER Document Report ---
ED General - General Chief Complaint: Possible Kidney Stone Stated Complaint: POSSIBLE KIDNEY STONES Notes: Patient is a 46-year-old male well-known to the department for frequent kidney stones with extreme associated pain. Patient was just seen this morning and had multiple witnessed kidney stone extractions. He presents again today stating that he is having worsening pain in his right flank and is feeling the kidney stone continuing to descend. States this feels identical to prior presentations. Describes the pain as a severe, constant, sharp pain. Nothing improves or worsens the pain. He notes associated diaphoresis and vomiting. He has not had any fever. He is following with [facility] urology regarding his kidney stones. TRAVEL OUTSIDE OF THE [place] IN LAST 30 DAYS: No - HPI Onset: This evening Onset/Duration: Gradual Quality of pain: Sharp Severity: Severe Pain Level: 5 Associated symptoms: Vomiting Exacerbated by: Denies Relieved by: Denies Similar symptoms previously: Yes Recently seen / treated by doctor: Yes - Related Data Allergies/Adverse Reactions: fentanyl Adverse Reaction (Verified 01/24/17 22:05) trazodone [Trazodone] Adverse Reaction (Verified 01/24/17 22:05) Past Medical History - General Information source: Patient - Social History Smoking Status: Current Every Day Smoker Frequency of alcohol use: None Drug Abuse: None Lives with: Spouse/Significant other Family History: Reviewed & Not Pertinent Patient has suicidal ideation: No Patient has homicidal ideation: No - Past Medical History Cardiac Medical History: Reports: Hx Hypercholesterolemia, Hx Hypertension Endocrine Medical History: Reports: Hx Diabetes Mellitus Type 2 Renal/ Medical History: Reports: Hx Kidney Stones. Denies: Hx Peritoneal Dialysis GI Medical History: Reports: Hx Gastroesophageal Reflux Disease, Hx Hiatal Hernia Musculoskeltal Medical History: Reports Hx Musculoskeletal Trauma Traumatic Medical History: Reports: Hx Spine Fracture Past Surgical History: Reports: Hx Cholecystectomy, Hx Orthopedic Surgery - Neck fusion, chronic pain - Immunizations Hx Diphtheria, Pertussis, Tetanus Vaccination: No Review of Systems - Review of Systems Notes: Constitutional: Negative for fever. HENT: Negative for sore throat. Eyes: Negative for visual changes. Cardiovascular: Negative for chest pain. Respiratory: Negative for shortness of breath. Gastrointestinal: Positive for right flank pain and vomiting Genitourinary: Negative for dysuria. Musculoskeletal: Negative for back pain. Skin: Negative for rash. Neurological: Negative for headaches, weakness or numbness. 10 point ROS negative except as marked above and in HPI. Physical Exam - Vital signs Vitals: Pulse Resp BP Pulse Ox 141 H 16 126/101 H 95 01/24/17 21:56 01/24/17 21:56 01/24/17 21:56 01/24/17 21:56 Interpretation: Tachycardic Notes: PHYSICAL EXAMINATION: GENERAL: Appears to be in severe pain, diaphoretic HEAD: Atraumatic, normocephalic. EYES: Pupils equal round and reactive to light, extraocular movements intact, sclera anicteric, conjunctiva are normal. ENT: nares patent, oropharynx clear without exudates. Moist mucous membranes. NECK: Normal range of motion, supple without lymphadenopathy LUNGS: Breath sounds clear to auscultation bilaterally and equal. No wheezes rales or rhonchi. HEART: Regular tachycardia without murmurs ABDOMEN: Soft, nontender, normoactive bowel sounds. Right CVA tenderness. No guarding, no rebound. No masses appreciated. EXTREMITIES: Normal range of motion, no pitting or edema. No cyanosis. NEUROLOGICAL: No focal neurological deficits. Moves all extremities spontaneously and on command. PSYCH: Normal mood, normal affect. SKIN: Warm, severe diaphoresis, normal turgor, no rashes or lesions noted. Course - Re-evaluation Re-evalutation: 01/24/17 23:08 Presents with findings consistent with acute nephrolithiasis. This is the patient's same presentation as prior visits. Pain was able to be controlled here in the emergency department. Patient is tolerating oral intake. Clinical history is not consistent with an acute abdominal aneurysm or dissection, [place], or pulmonary embolus. Urinalysis does not show findings consistent with an infected stone. Vitals have remained within normal limits. Patient will be discharged with recommendations to follow-up with urology, pain medications, and return precautions. They are in agreement with this plan and verbalized indications return to emergency department. - Vital Signs Vital signs: Temp Pulse Resp BP Pulse Ox 98.7 F 121 H 16 162/81 H 99 01/25/17 05:03 01/25/17 05:03 01/25/17 05:03 01/25/17 05:03 01/25/17 05:03 Discharge - Discharge Clinical Impression: Kidney stones Condition: Good Disposition: HOME, SELF-CARE Additional Instructions: Your symptoms should improve over the course of the next one week. If you continue to have pain for greater than one week or your pain is not controlled with the pain medications that you have been sent home with you need to return to the emergency department. Please also return if you develop fever, persistent vomiting, or any other symptoms that are concerning to you. You should take ibuprofen 600 mg every 6 hours and use the Percocet as prescribed only for pain not controlled by ibuprofen. Your also been sent home with a medication called Flomax to help pass the stone. You've been given Zofran to assist with nausea. Please followup closely with your primary care provider.
[2017-01-25] MEDS: HYDROMORPHONE HCL INJ/PF 2 MG/ML AMPULE IV PRN ×2 (00:45→03:25)
[2017-01-25] MEDS ORDERED: KETAMINE HCL INJ 500 MG/10 ML VIAL IV ONE ×2 (01:32→04:38)
[2017-01-25] MEDS ORDERED: NORMAL SALINE 1000 ML 1,000 ML IV ONE (01:33)
[2017-01-25] MEDS: DIAZEPAM INJ 10 MG/2 ML DISP.SYRIN IV PRN (04:28)
[2017-01-25 05:04] VITALS: BP 162/81
== END 2017-01-25 05:15 | disposition home or self-care (01) ==
LOC: ER 21:52
DX: N20.1 Calculus of ureter (principal); F17.210 Nicotine dependence, cigarettes, uncomplicated
CPT/HCPCS: 96376; 99283; 96374; 96375; J3360 ×2; J3490 ×3; J1885; J1170 ×2; J2405

== ENCOUNTER 2017-02-03 22:38 | Emergency (ER) | payer MEDICAID ==
[2017-02-03] MEDS ORDERED: LIDOCAINE 2% URO-JET 5 ML KIT MM ONE (23:01)
[2017-02-03] MEDS ORDERED: ONDANSETRON HCL INJ/PF 4 MG/2 ML SDV IV ONE (23:02)
[2017-02-03] MEDS ORDERED: NORMAL SALINE 1000 ML 1,000 ML IV ONE ×2 (23:02→23:08)
[2017-02-03] MEDS ORDERED: KETOROLAC TROMETHAMINE INJ/PF 30 MG/1 ML SDV ONE (23:06)
[2017-02-03] MEDS: HYDROMORPHONE HCL INJ/PF 2 MG/ML AMPULE IV PRN (23:20)
[2017-02-03] MEDS ORDERED: KETOROLAC TROMETHAMINE INJ/PF 30 MG/1 ML SDV IV ONE (23:28)
[2017-02-03] MEDS: DIAZEPAM INJ 10 MG/2 ML DISP.SYRIN IV PRN (23:30)
[2017-02-03] MEDS: KETAMINE HCL INJ 500 MG/10 ML VIAL IV PRN (23:30)
--- NOTE | 2017-02-03 23:42 | ER Document Report ---
ED General - General Chief Complaint: Possible Kidney Stone Stated Complaint: POSSIBLE KIDNEY STONE RIGHT SIDE Notes: Patient's a 46-year-old male with a history of recurrent nephrolithiasis who presents with several hours of progressively worsening severe right-sided flank pain. Does describe pain as a severe, constant, stabbing pain. States this is identical to all his prior presentations for nephrolithiasis. He has had associated hematuria and vomiting at home. Nothing improves or worsens his symptoms. He has not spoken to his primary care doctor or urologist regarding today's concerns. He has not had any associated fever or focal abdominal pain. TRAVEL OUTSIDE OF THE [place] IN LAST 30 DAYS: No - Related Data Allergies/Adverse Reactions: fentanyl Adverse Reaction (Verified 02/03/17 22:58) trazodone [Trazodone] Adverse Reaction (Verified 02/03/17 22:58) Past Medical History - General Information source: Patient - Social History Smoking Status: Current Every Day Smoker Chew tobacco use (# tins/day): No Frequency of alcohol use: None Drug Abuse: None Lives with: Spouse/Significant other Family History: Reviewed & Not Pertinent Patient has suicidal ideation: No Patient has homicidal ideation: No - Past Medical History Cardiac Medical History: Reports: Hx Hypercholesterolemia, Hx Hypertension Endocrine Medical History: Reports: Hx Diabetes Mellitus Type 2 Renal/ Medical History: Reports: Hx Kidney Stones. Denies: Hx Peritoneal Dialysis GI Medical History: Reports: Hx Gastroesophageal Reflux Disease, Hx Hiatal Hernia Musculoskeltal Medical History: Reports Hx Musculoskeletal Trauma Traumatic Medical History: Reports: Hx Spine Fracture Past Surgical History: Reports: Hx Cholecystectomy, Hx Orthopedic Surgery - Neck fusion, chronic pain - Immunizations Hx Diphtheria, Pertussis, Tetanus Vaccination: No Review of Systems - Review of Systems Notes: Constitutional: Negative for fever. HENT: Negative for sore throat. Eyes: Negative for visual changes. Cardiovascular: Negative for chest pain. Respiratory: Negative for shortness of breath. Gastrointestinal: Negative for abdominal pain, vomiting or diarrhea. Genitourinary: Positive for hematuria and flank pain Musculoskeletal: Negative for back pain. Skin: Negative for rash. Neurological: Negative for headaches, weakness or numbness. 10 point ROS negative except as marked above and in HPI. Physical Exam - Vital signs Vitals: Temp Pulse Resp BP Pulse Ox 97.4 F 119 H 22 H 180/100 H 97 02/03/17 22:48 02/03/17 22:48 02/03/17 22:48 02/03/17 22:48 02/03/17 22:48 Interpretation: Tachycardic Notes: PHYSICAL EXAMINATION: GENERAL: Appears to be in significant pain. Diaphoretic HEAD: Atraumatic, normocephalic. EYES: Pupils equal round and reactive to light, extraocular movements intact, sclera anicteric, conjunctiva are normal. ENT: nares patent, oropharynx clear without exudates. Moderately dry mucous membranes. NECK: Normal range of motion, supple without lymphadenopathy LUNGS: Breath sounds clear to auscultation bilaterally and equal. No wheezes rales or rhonchi. HEART: Regular rate and rhythm without murmurs ABDOMEN: Soft, nontender, normoactive bowel sounds. No guarding, no rebound. No masses appreciated. Right CVA tenderness EXTREMITIES: Normal range of motion, no pitting or edema. No cyanosis. NEUROLOGICAL: No focal neurological deficits. Moves all extremities spontaneously and on command. PSYCH: Normal mood, normal affect. SKIN: Warm, severe diaphoresis, no rashes or lesions noted. Course - Re-evaluation Re-evalutation: 02/03/17 23:41 Presents with findings consistent with acute nephrolithiasis. This is identical to patient's prior presentations and after aggressive pain control here in the emergency room and he has been able to pass the stone. Patient is tolerating oral intake. Clinical history is not consistent with an acute abdominal aneurysm or dissection, AL, or pulmonary embolus. Vitals have remained within normal limits. At this time will discharge with return precautions and follow-up recommendations. Verbal discharge instructions given a the bedside and opportunity for questions given. Medication warnings reviewed. Patient is in agreement with this plan and has verbalized understanding of return precautions and the need for primary care follow-up in the next 24-72 hours. - Vital Signs Vital signs: Temp Pulse Resp BP Pulse Ox 97.4 F 119 H 22 H 180/100 H 97 02/03/17 22:55 02/03/17 22:55 02/03/17 22:55 02/03/17 22:55 02/03/17 22:55 Discharge - Discharge Clinical Impression: Nephrolithiasis Condition: Good Disposition: HOME, SELF-CARE Additional Instructions: Your symptoms should improve over the course of the next one week. If you continue to have pain for greater than one week or your pain is not controlled with the pain medications that you have been sent home with you need to return to the emergency department. Please also return if you develop fever, persistent vomiting, or any other symptoms that are concerning to you. Please followup closely with your primary care provider.
[2017-02-03] MEDS ORDERED: TAMSULOSIN HCL 0.4 MG CAP.SR.24H PO ONE (23:58)
[2017-02-03] MEDS ORDERED: HYDROMORPHONE HCL INJ/PF 2 MG/ML AMPULE IV ONE (23:59)
[2017-02-04] MEDS: DIAZEPAM INJ 10 MG/2 ML DISP.SYRIN IV PRN (00:45)
[2017-02-04] MEDS: KETAMINE HCL INJ 500 MG/10 ML VIAL IV PRN ×2 (00:46→03:03)
[2017-02-04] MEDS: HYDROMORPHONE HCL INJ/PF 2 MG/ML AMPULE IV PRN ×2 (01:35→03:06)
[2017-02-04] MEDS ORDERED: DIPHENHYDRAMINE HCL 50 MG/ML VIAL IV ONE (02:19)
[2017-02-04] MEDS ORDERED: LIDOCAINE 2% URO-JET 5 ML KIT MM ONE (02:20)
[2017-02-04] MEDS ORDERED: DIAZEPAM INJ 10 MG/2 ML DISP.SYRIN IV ONE (02:36)
[2017-02-04 03:31] VITALS: BP 117/75
[2017-02-04] MEDS ORDERED: HYDROMORPHONE HCL INJ/PF 2 MG/ML AMPULE IV ONE (03:42)
== END 2017-02-04 03:55 | disposition home or self-care (01) ==
LOC: ER 22:38
DX: N20.0 Calculus of kidney (principal); R10.9 Unspecified abdominal pain; F17.200 Nicotine dependence, unspecified, uncomplicated; E78.00 Pure hypercholesterolemia, unspecified; I10 Essential (primary) hypertension; E11.9 Type 2 diabetes mellitus without complications; Z87.442 Personal history of urinary calculi; Z90.49 Acquired absence of other specified parts of digestive tract; Z98.1 Arthrodesis status
CPT/HCPCS: 96376; 99283; 96361; 96374; 96375; J3360 ×2; J1200; J3490 ×5; J1885; J1170 ×2; J2405; J7030

== ENCOUNTER 2017-02-04 19:49 | Emergency (ER) | payer MEDICAID ==
[2017-02-04] MEDS ORDERED: ONDANSETRON HCL INJ/PF 4 MG/2 ML SDV IV ONE (19:58)
[2017-02-04] MEDS ORDERED: KETOROLAC TROMETHAMINE INJ/PF 30 MG/1 ML SDV IV ONE (19:58)
[2017-02-04] MEDS ORDERED: LIDOCAINE 2% URO-JET 5 ML KIT MM ONE ×2 (19:58→22:06)
--- NOTE | 2017-02-04 20:15 | ER Document Report ---
ED Medical Screen (RME) - General Stated Complaint: FLANK PAIN Notes: Patient returns emergency department with right groin pain consistent with previous kidney stones. groin pain, Hematuria and emesis since 640 pm I have greeted and performed a rapid initial assessment of this patient. A comprehensive ED assessment and evaluation of the patient, analysis of test results and completion of the medical decision making process will be conducted by additional ED providers. TRAVEL OUTSIDE OF THE [place] IN LAST 30 DAYS: No - Related Data Allergies/Adverse Reactions: fentanyl Adverse Reaction (Verified 02/03/17 22:58) trazodone [Trazodone] Adverse Reaction (Verified 02/03/17 22:58) Past Medical History - Past Medical History Cardiac Medical History: Reports: Hx Hypercholesterolemia, Hx Hypertension Endocrine Medical History: Reports: Hx Diabetes Mellitus Type 2 Renal/ Medical History: Reports: Hx Kidney Stones. Denies: Hx Peritoneal Dialysis GI Medical History: Reports: Hx Gastroesophageal Reflux Disease, Hx Hiatal Hernia Musculoskeltal Medical History: Reports Hx Musculoskeletal Trauma Traumatic Medical History: Reports: Hx Spine Fracture Past Surgical History: Reports: Hx Cholecystectomy, Hx Orthopedic Surgery - Neck fusion, chronic pain - Immunizations Hx Diphtheria, Pertussis, Tetanus Vaccination: No Physical Exam - Vital signs Vitals: Temp Pulse Resp BP Pulse Ox 98.2 F 115 H 22 H 135/107 H 100 02/04/17 20:02 02/04/17 20:02 02/04/17 20:02 02/04/17 20:02 02/04/17 20:02 Course - Vital Signs Vital signs: Temp Pulse Resp BP Pulse Ox 98.2 F 115 H 22 H 135/107 H 100 02/04/17 20:02 02/04/17 20:02 02/04/17 20:02 02/04/17 20:02 02/04/17 20:02
[2017-02-04] MEDS ORDERED: DIAZEPAM INJ 10 MG/2 ML DISP.SYRIN IV ONE ×2 (20:45→22:14)
[2017-02-04] MEDS ORDERED: HYDROMORPHONE HCL INJ/PF 2 MG/ML AMPULE IV ONE ×2 (20:45→22:13)
[2017-02-04] MEDS ORDERED: TAMSULOSIN HCL 0.4 MG CAP.SR.24H PO ONE (20:46)
[2017-02-04 21:08] LABS: ABSOLUTE BASOPHILS # (AUTO) 0.1 10^3/uL (0.0-0.2); ABSOLUTE EOSINOPHILS # (AUTO) 0.3 10^3/uL (0.0-0.6); ABSOLUTE LYMPHOCYTES (AUTO) 2.2 10^3/uL (0.5-4.7); ABSOLUTE MONOCYTES (AUTO) 0.6 10^3/uL (0.1-1.4); ABSOLUTE NEUT (AUTO) 3.3 10^3/uL (1.7-8.2); BASOPHILS % (AUTO) 0.9 % (0-2); HEMATOCRIT 44.9 % (37.9-51.0); HEMOGLOBIN 15.8 g/dL (13.5-17.0); HGB HCT DIFFERENCE 2.5; LYMPHOCYTES % (AUTO) 34.4 % (13-45); MEAN CORPUSCULAR HGB CONC 35.1 g/dL (32.0-36.0); MEAN CORPUSCULAR VOLUME 91 fl (80-97); RED BLOOD COUNT 4.93 10^6/uL (4.35-5.55); RED CELL DISTRIBUTION WIDTH 13.7 % (11.5-14.0); SEGMENTED NEUTROPHILS % (AUTO) 51.7 % (42-78); WHITE BLOOD COUNT 6.3 10^3/uL (4.0-10.5)
[2017-02-04] MEDS ORDERED: NORMAL SALINE 1000 ML 1,000 ML IV ONE (21:16)
[2017-02-04] MEDS ORDERED: METOCLOPRAMIDE HCL INJ/PF 10 MG/2 ML SDV IV ONE (21:19)
[2017-02-04 21:27] LABS: ALANINE AMINOTRANSFERASE 45 U/L (21-72); ALBUMIN 4.8 g/dL (3.5-5.0); ALKALINE PHOSPHATASE 70 U/L (38-126); ANION GAP 12 (5-19); ASPARTATE AMINO TRANSFERASE 31 U/L (17-59); BILIRUBIN,TOTAL 0.7 mg/dL (0.2-1.3); BLOOD UREA NITROGEN 17 mg/dL (7-20); CALCIUM 9.7 mg/dL (8.4-10.2); CARBON DIOXIDE 27 mmol/L (22-30); CHLORIDE 102 mmol/L (98-107); CREATININE RESULT 0.79 mg/dL (0.52-1.25); GLUCOSE 134 mg/dL (75-110); LIPASE 118.6 U/L (23-300); POTASSIUM 4.4 mmol/L (3.6-5.0); SODIUM 141.4 mmol/L (137-145); TOTAL PROTEIN 7.7 g/dL (6.3-8.2)
[2017-02-04] MEDS ORDERED: DIPHENHYDRAMINE HCL 50 MG/ML VIAL IV ONE (22:18)
--- NOTE | 2017-02-04 22:32 | ER Document Report ---
ED GI/ - General Chief Complaint: Possible Kidney Stone Stated Complaint: FLANK PAIN Time seen by provider: 22:31 Mode of Arrival: Ambulatory Information source: Patient TRAVEL OUTSIDE OF THE [place] IN LAST 30 DAYS: No - HPI Patient complains to provider of: Flank pain, Vomiting Onset: This evening Timing/Duration: Sudden Quality of pain: Pressure, Sharp, Stabbing Severity at maximum: Severe Severity in ED: Severe Pain Level: 5 Location: Right flank Associated symptoms: Hematuria, Nausea, Vomiting Exacerbated by: Denies Relieved by: Denies Similar symptoms previously: Yes Recently seen / treated by doctor: Yes Notes: 02/05/17 02:46 Patient is a 46-year-old male who is well-known to this emergency room for kidney stones, who presents to the emergency room this evening complaining of right flank pain started shortly prior to arrival, patient reports nausea and vomiting associated with the pain, which is typical of his kidney stone pain in the past - Related Data Allergies/Adverse Reactions: fentanyl Adverse Reaction (Verified 02/03/17 22:58) trazodone [Trazodone] Adverse Reaction (Verified 02/03/17 22:58) Past Medical History - General Information source: Patient - Social History Smoking Status: Current Every Day Smoker Chew tobacco use (# tins/day): No Frequency of alcohol use: None Drug Abuse: None Family History: Reviewed & Not Pertinent Patient has suicidal ideation: No Patient has homicidal ideation: No - Past Medical History Cardiac Medical History: Reports: Hx Hypercholesterolemia, Hx Hypertension Endocrine Medical History: Reports: Hx Diabetes Mellitus Type 2 Renal/ Medical History: Reports: Hx Kidney Stones. Denies: Hx Peritoneal Dialysis GI Medical History: Reports: Hx Gastroesophageal Reflux Disease, Hx Hiatal Hernia Musculoskeltal Medical History: Reports Hx Musculoskeletal Trauma Traumatic Medical History: Reports: Hx Spine Fracture Past Surgical History: Reports: Hx Cholecystectomy, Hx Orthopedic Surgery - Neck fusion, chronic pain - Immunizations Hx Diphtheria, Pertussis, Tetanus Vaccination: No Review of Systems - Review of Systems Constitutional: No symptoms reported EENT: No symptoms reported Cardiovascular: No symptoms reported Respiratory: No symptoms reported Gastrointestinal: No symptoms reported Genitourinary: See HPI Male Genitourinary: No symptoms reported Musculoskeletal: No symptoms reported Skin: No symptoms reported Hematologic/Lymphatic: No symptoms reported Neurological/Psychological: No symptoms reported -: Yes All other systems reviewed and negative Physical Exam - Vital signs Vitals: Temp Pulse Resp BP Pulse Ox 98.2 F 115 H 22 H 135/107 H 100 02/04/17 20:02 02/04/17 20:02 02/04/17 20:02 02/04/17 20:02 02/04/17 20:02 Interpretation: Hypertensive, Tachycardic - General General appearance: Appears well, Alert - HEENT Head: Normocephalic, Atraumatic Eyes: Normal Pupils: PERRL - Respiratory Respiratory status: No respiratory distress Chest status: Nontender Breath sounds: Normal Chest palpation: Normal - Cardiovascular Rhythm: Regular Heart sounds: Normal auscultation Murmur: No - Abdominal Inspection: Normal Distension: No distension Bowel sounds: Normal Tenderness: Nontender Organomegaly: No organomegaly - Back Back: Normal, Nontender - Extremities General upper extremity: Normal inspection, Nontender, Normal color, Normal ROM , Normal temperature General lower extremity: Normal inspection, Nontender, Normal color, Normal ROM , Normal temperature, Normal weight bearing. No: Nathaniel's sign - Neurological Neuro grossly intact: Yes Cognition: Normal Orientation: AAOx4 [place] Coma Scale Eye Opening: Spontaneous [place] Coma Scale Verbal: Oriented Joyce Coma Scale Motor: Obeys Commands [place] Coma Scale Total: 15 Speech: Normal Motor strength normal: LUE, RUE, LLE, RLE Sensory: Normal - Psychological Associated symptoms: Tearful - Skin Skin Temperature: Warm Skin Moisture: Diaphoretic Skin Color: Normal Course - Re-evaluation Re-evalutation: 02/04/17 22:32 Patient passes a relatively small stone and reports feeling much better on reevaluation, states he is ready to go home, he will be discharged with instructions for follow-up, patient acknowledges understanding and agreement with this plan - Vital Signs Vital signs: Temp Pulse Resp BP Pulse Ox 97.8 F 91 20 133/91 H 100 02/04/17 22:50 02/04/17 22:50 02/04/17 22:50 02/04/17 22:50 02/04/17 22:50 - Laboratory Result Diagrams: 02/04/17 20:42 02/04/17 20:42 Laboratory results interpreted by me: 02/04/17 20:42 Glucose 134 H Discharge - Discharge Clinical Impression: Kidney stone on right side Condition: Stable Disposition: HOME, SELF-CARE Instructions: Kidney Stone ([facility]) Additional Instructions: Follow up with your primary care provider in one to 2 days. Return to the emergency room immediately if symptoms worsen or any additional concerns. Referrals: MIGUEL SOUZA PA [Primary Care Provider] - Follow up as needed
[2017-02-04 23:10] VITALS: BP 133/91
== END 2017-02-04 22:50 | disposition home or self-care (01) ==
LOC: ER 19:49
DX: N20.0 Calculus of kidney (principal); R10.9 Unspecified abdominal pain; R11.2 Nausea with vomiting, unspecified; F17.210 Nicotine dependence, cigarettes, uncomplicated
CPT/HCPCS: 96376; 99284; 96361; 96374; 96375; 36415; 83690; 85025; 80053; J3360; J1200; J1885; J2765; J1170; J3490 ×2; J2405; J7030

== ENCOUNTER 2017-02-07 19:11 | Emergency (ER) | payer MEDICAID ==
[2017-02-07] MEDS ORDERED: HYDROMORPHONE HCL INJ/PF 2 MG/ML AMPULE IV ONE ×3 (19:13→22:05)
[2017-02-07] MEDS ORDERED: LIDOCAINE 2% URO-JET 5 ML KIT MM ONE (19:13)
[2017-02-07] MEDS ORDERED: ONDANSETRON HCL INJ/PF 4 MG/2 ML SDV IV ONE ×2 (19:13→20:24)
[2017-02-07] MEDS ORDERED: NORMAL SALINE 1000 ML 1,000 ML IV ONE (19:16)
--- NOTE | 2017-02-07 19:16 | ER Document Report ---
ED Medical Screen (RME) - General Stated Complaint: FLANK PAIN Mode of Arrival: Ambulatory Information source: Patient, Relative - Notes: Patient presents to the emergency department with history of kidney stones. Patient is actively vomiting. Patient reports right flank pain that goes across his abdomen. I have greeted and performed a rapid initial assessment of this patient. A comprehensive ED assessment and evaluation of the patient, analysis of test results and completion of the medical decision making process will be conducted by additional ED providers. TRAVEL OUTSIDE OF THE [place] IN LAST 30 DAYS: No - Related Data Allergies/Adverse Reactions: fentanyl Adverse Reaction (Verified 02/03/17 22:58) trazodone [Trazodone] Adverse Reaction (Verified 02/03/17 22:58) Past Medical History - Past Medical History Cardiac Medical History: Reports: Hx Hypercholesterolemia, Hx Hypertension Endocrine Medical History: Reports: Hx Diabetes Mellitus Type 2 Renal/ Medical History: Reports: Hx Kidney Stones. Denies: Hx Peritoneal Dialysis GI Medical History: Reports: Hx Gastroesophageal Reflux Disease, Hx Hiatal Hernia Musculoskeltal Medical History: Reports Hx Musculoskeletal Trauma Traumatic Medical History: Reports: Hx Spine Fracture Past Surgical History: Reports: Hx Cholecystectomy, Hx Orthopedic Surgery - Neck fusion, chronic pain - Immunizations Hx Diphtheria, Pertussis, Tetanus Vaccination: No
[2017-02-07 20:08] LABS: HEMOGLOBIN 16.6 g/dL (13.5-17.0); HGB HCT DIFFERENCE 1.8; MEAN CORPUSCULAR HEMOGLOBIN 31.3 pg (27.0-33.4); MEAN CORPUSCULAR HGB CONC 34.5 g/dL (32.0-36.0); MEAN CORPUSCULAR VOLUME 91 fl (80-97); RED CELL DISTRIBUTION WIDTH 13.3 % (11.5-14.0); WHITE BLOOD COUNT 5.8 10^3/uL (4.0-10.5)
[2017-02-07] MEDS ORDERED: KETAMINE HCL INJ 500 MG/10 ML VIAL IV ONE ×2 (20:23→21:04)
--- NOTE | 2017-02-07 20:28 | ER Document Report ---
ED GI/ - General Mode of Arrival: Ambulatory Information source: Patient TRAVEL OUTSIDE OF THE [place] IN LAST 30 DAYS: No - HPI Patient complains to provider of: Abdominal pain - RLQ Associated symptoms: Other - See above <CONSTANZA IZAGUIRRE - Last Filed: 02/07/17 22:05> <STEVE GAMBINO - Last Filed: 02/08/17 00:56> - General Chief Complaint: Abdominal Pain Stated Complaint: RLQ abdominal pain Notes: Patient is a 46 year old male, with a past medical history including HTN, diabetes, and kidney stones, who presents to the emergency department complaining of right lower quadrant abdominal pain. Patient has a recurrent history of kidney stones and is frequently in the EDfor flank pain when passing the stones. Patient reports the pain came on suddenly this evening around 1845 while he was at dinner. Patient states the pain radiates into his groin and right lower back. Patient also complains of vomiting and nausea. 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 Patient has had multiple CT scans here with no evidence of stones, but has not had a contrast CT scan done recently. 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 (CONSTANZA IZAGUIRRE) This 46-year-old male patient comes emergency room complaining of sudden onset at 6:45 PM this evening of severe right lower quadrant abdominal pain going into his back. It is associated with nausea and vomiting. Lower and some retching. He states this is a kidney stone which he has had multiple times in the past. By history he has homocystine stones but cannot be seen on CT scan. Review of several CT scans done here without contrast did not show hydroureter, hydronephrosis, or evidence of recently passed stone. However several providers here have stated they have seen him pull stones out of his penis on multiple occasions and he reportedly becomes pain free when he removes the stones from the penis. This coincidentally occurs after large doses of narcotics and antiemetics. He is currently on chronic pain management receiving oxycodone 20 mg 6 times daily, and Butrans 20 g patches. Review of the [place] database shows the narcotic dosing began escalating in July 2016. His visits to this emergency room began escalating and October of 2016. He has been here 25 times in the past 13 weeks, and has been here 14 times in the past [address] scan done with IV contrast today is completely unremarkable other than a fatty liver. When I tried to discuss with the patient and umbrella cutter that there may be more to this than stones, they became quite defensive, angry hostile and threatening to leave and go to another facility that would treat him better. They also named other providers here that "know how to treat him". The patient reports that once his nausea is controlled and his tension is controlled and he can relax, (i.e. gets Valium and narcotics in large doses), he can hold down the Flomax, relax and walk around, and the stone will pass in 30-45 minutes. (STEVE GAMBINO) - Related Data Allergies/Adverse Reactions: fentanyl Adverse Reaction (Verified 02/07/17 19:15) trazodone [Trazodone] Adverse Reaction (Verified 02/07/17 19:15) Past Medical History - General Information source: Patient, Relative - - Social History Smoking Status: Current Every Day Smoker Cigarette use (# per day): Yes - 1/2ppd Frequency of alcohol use: None Drug Abuse: None Family History: Reviewed & Not Pertinent Patient has suicidal ideation: No Patient has homicidal ideation: No - Past Medical History Cardiac Medical History: Reports: Hx Hypercholesterolemia, Hx Hypertension Endocrine Medical History: Reports: Hx Diabetes Mellitus Type 2 Renal/ Medical History: Reports: Hx Kidney Stones GI Medical History: Reports: Hx Gastroesophageal Reflux Disease, Hx Hiatal Hernia Musculoskeltal Medical History: Reports Hx Musculoskeletal Trauma Traumatic Medical History: Reports: Hx Spine Fracture Past Surgical History: Reports: Hx Cholecystectomy, Hx Orthopedic Surgery - Neck fusion, chronic pain - Immunizations Hx Diphtheria, Pertussis, Tetanus Vaccination: No <CONSTANZA IZAGUIRRE - Last Filed: 02/07/17 22:05> Review of Systems - Review of Systems Constitutional: No symptoms reported EENT: No symptoms reported Cardiovascular: No symptoms reported Respiratory: No symptoms reported Gastrointestinal: See HPI, Abdominal pain, Nausea, Vomiting Genitourinary: No symptoms reported Male Genitourinary: No symptoms reported Musculoskeletal: No symptoms reported Skin: No symptoms reported Hematologic/Lymphatic: No symptoms reported Neurological/Psychological: No symptoms reported -: Yes All other systems reviewed and negative <CONSTANZA IZAGUIRRE - Last Filed: 02/07/17 22:05> Physical Exam - Vital signs Interpretation: Normal - General General appearance: Alert, Anxious, Other - Standing with IV fluids running, bent over holding his abdomen - HEENT Head: Normocephalic, Atraumatic - Respiratory Respiratory status: No respiratory distress - Abdominal Inspection: Obese Distension: No distension Bowel sounds: Normal Tenderness: Tender - mild tenderness to palpation of right lower quadrant, soft Organomegaly: No organomegaly - Back Back: Normal, Nontender - no tenderness to palpation of back muscles. No: CVA tenderness - Extremities General upper extremity: Normal inspection, Normal ROM, Normal strength General lower extremity: Normal inspection, Normal ROM, Normal strength, Normal weight bearing - Neurological Neuro grossly intact: Yes Cognition: Normal Orientation: AAOx4 [place] Coma Scale Eye Opening: Spontaneous [place] Coma Scale Verbal: Oriented [place] Coma Scale Motor: Obeys Commands [place] Coma Scale Total: 15 Speech: Normal Motor strength normal: LUE, RUE, LLE, RLE Sensory: Normal - Psychological Associated symptoms: Anxious - Skin Skin Temperature: Warm Skin Moisture: Dry Skin Color: Normal <CONSTANZA IZAGUIRRE - Last Filed: 02/07/17 22:05> <STEVE GAMBINO - Last Filed: 02/08/17 00:56> - Vital signs Vitals: Temp Pulse Resp BP Pulse Ox 98.4 F 97 28 H 158/102 H 100 02/07/17 19:18 02/07/17 19:18 02/07/17 19:18 02/07/17 19:18 02/07/17 19:18 Course - Laboratory Result Diagrams: 02/07/17 19:50 02/07/17 20:45 <CONSTANZA IZAGUIRRE - Last Filed: 02/07/17 22:05> - Laboratory Result Diagrams: 02/07/17 19:50 02/07/17 20:45 - Diagnostic Test Radiology reviewed: Image reviewed, Reports reviewed - CT scan of the abdomen and pelvis with IV contrast shows marked fatty infiltration of the liver, otherwise no significant or acute findings seen. Specifically, no hydronephrosis or hydroureter seen on either side. <STEVE GAMBINO - Last Filed: 02/08/17 00:56> - Re-evaluation Re-evalutation: 02/08/17 00:16 After the initial 4 mg Dilaudid dose IV, the patient began to feel much better and stopped vomiting. His nausea and pain is coming back again now. (STEVE GAMBINO) - Vital Signs Vital signs: Temp Pulse Resp BP Pulse Ox 98.4 F 97 22 H 127/109 H 97 02/07/17 19:18 02/07/17 19:18 02/07/17 20:40 02/07/17 20:40 02/07/17 20:40 - Laboratory Laboratory results interpreted by me: 02/07/17 02/07/17 19:50 20:45 Seg Neuts % (Manual) 41 L Glucose 152 H Discharge <CONSTANZA IZAGUIRRE - Last Filed: 02/07/17 22:05> <STEVE GAMBINO - Last Filed: 02/08/17 00:56> - Discharge Clinical Impression: Right lower quadrant abdominal pain Nausea and vomiting Qualifiers: Vomiting type: unspecified Vomiting Intractability: non-intractable Qualified Code(s): R11.2 - Nausea with vomiting, unspecified Condition: Stable Disposition: HOME, SELF-CARE Additional Instructions: CONTINUE YOUR REGULAR MEDICATIONS. FOLLOW UP WITH YOUR DOCTOR TOMORROW IF NOT IMPROVING. Scribe Attestation: 02/08/17 00:55 I personally performed the services described in the documentation, reviewed and edited the documentation which was dictated to the scribe in my presence, and it accurately records my words and actions. (STEVE GAMBINO) Scribe Documentation - Scribe Written by Mirta:: mirta Rodriguez, [id number]/07/[id number] acting as scribe for :: Edgar <CONSTANZA IZAGUIRRE - Last Filed: 02/07/17 22:05>
[2017-02-07 20:38] LABS: BASOPHILS % (MANUAL) 1 % (0-2); EOSINOPHILS % (MANUAL) 5 % (0-6); LYMPHOCYTES % (MANUAL) 41 % (13-45); TOTAL CELLS COUNTED 100
[2017-02-07 20:39] LABS: TOXIC VACUOLATION PRESENT
[2017-02-07 20:43] LABS: RBC MORPHOLOGY COMMENT NORMO-CYTIC/CHROMIC
[2017-02-07 21:02] VITALS: BP 127/109
[2017-02-07] MEDS ORDERED: DIPHENHYDRAMINE HCL 50 MG/ML VIAL IV ONE (21:11)
[2017-02-07] MEDS ORDERED: DIPHENHYDRAMINE HCL 50 MG/ML VIAL ONE (21:13)
[2017-02-07 21:14] LABS: ALANINE AMINOTRANSFERASE 64 U/L (21-72); ALBUMIN 4.1 g/dL (3.5-5.0); ALKALINE PHOSPHATASE 59 U/L (38-126); ANION GAP 13 (5-19); ASPARTATE AMINO TRANSFERASE 41 U/L (17-59); BILIRUBIN,TOTAL 0.5 mg/dL (0.2-1.3); BLOOD UREA NITROGEN 12 mg/dL (7-20); CALCIUM 8.7 mg/dL (8.4-10.2); CARBON DIOXIDE 24 mmol/L (22-30); CHLORIDE 104 mmol/L (98-107); CREATININE RESULT 0.88 mg/dL (0.52-1.25); GLUCOSE 152 mg/dL (75-110); POTASSIUM 4.5 mmol/L (3.6-5.0); SODIUM 140.7 mmol/L (137-145); TOTAL PROTEIN 6.8 g/dL (6.3-8.2)
[2017-02-07] MEDS ORDERED: METOCLOPRAMIDE HCL INJ/PF 10 MG/2 ML SDV IV ONE (22:04)
[2017-02-07] MEDS ORDERED: DIAZEPAM INJ 10 MG/2 ML DISP.SYRIN IV ONE (22:05)
[2017-02-07] MEDS ORDERED: KETOROLAC TROMETHAMINE INJ/PF 30 MG/1 ML SDV IV ONE (22:07)
[2017-02-07] MEDS ORDERED: TAMSULOSIN HCL 0.4 MG CAP.SR.24H PO ONE (22:30)
[2017-02-08] MEDS ORDERED: HYDROMORPHONE HCL INJ/PF 2 MG/ML AMPULE IV ONE (00:14)
[2017-02-08] MEDS ORDERED: DIAZEPAM INJ 10 MG/2 ML DISP.SYRIN IV ONE (00:15)
[2017-02-08 01:06] LABS: APPEARANCE,URINE SLIGHTLY-CLOUDY; BILIRUBIN,URINE NEGATIVE (NEGATIVE); GLUCOSE, URINE NEGATIVE (NEGATIVE); KETONES,URINE NEGATIVE (NEGATIVE); LEUKOCYTE ESTERASE,URINE NEGATIVE (NEGATIVE); NITRITE,URINE NEGATIVE (NEGATIVE); PROTEIN,URINE 100 mg/dL (NEGATIVE); UROBILINOGEN,URINE NEGATIVE mg/dL (<2.0)
[2017-02-08 01:09] LABS: URINE SPECIFIC GRAVITY > 1.060
== END 2017-02-08 01:06 | disposition home or self-care (01) ==
LOC: ER 19:11
DX: R10.32 Left lower quadrant pain (principal); R11.2 Nausea with vomiting, unspecified; E11.9 Type 2 diabetes mellitus without complications; I10 Essential (primary) hypertension; F17.210 Nicotine dependence, cigarettes, uncomplicated
CPT/HCPCS: 96376; 99284; 96361; 96374; 96375; 36415; 85025; 80053; 81001; 74177; J3360 ×2; J1200; J3490 ×3; J1885; J2765; J1170 ×2; J2405; J7030

== ENCOUNTER 2017-02-13 21:34 | Emergency (ER) | payer MEDICAID ==
[2017-02-13] MEDS ORDERED: TAMSULOSIN HCL 0.4 MG CAP.SR.24H PO ONE (21:44)
[2017-02-13] MEDS ORDERED: NORMAL SALINE 1000 ML 1,000 ML IV ONE (21:49)
[2017-02-13] MEDS ORDERED: LIDOCAINE 2% URO-JET 5 ML KIT MM ONE (21:50)
[2017-02-13] MEDS: DIAZEPAM INJ 10 MG/2 ML DISP.SYRIN IV PRN ×2 (22:42→23:52)
[2017-02-13] MEDS: HYDROMORPHONE HCL INJ/PF 2 MG/ML AMPULE IV PRN ×2 (22:43→23:51)
[2017-02-13] MEDS: DIPHENHYDRAMINE HCL 50 MG/ML VIAL IV PRN (22:43)
[2017-02-13] MEDS: KETAMINE HCL INJ 500 MG/10 ML VIAL IV PRN ×2 (22:44→23:52)
[2017-02-13] MEDS ORDERED: METOCLOPRAMIDE HCL INJ/PF 10 MG/2 ML SDV IV ONE (23:35)
[2017-02-13] MEDS ORDERED: METOCLOPRAMIDE HCL INJ/PF 10 MG/2 ML SDV ONE (23:35)
--- NOTE | 2017-02-14 01:29 | ER Document Report ---
ED General - General Chief Complaint: Possible Kidney Stone Stated Complaint: FLANK PAIN Notes: Patient is a 46-year-old male well-known to me who presents to the emergency department with right-sided flank pain radiating into his groin. States this feels identical to his prior presentations of severe kidney stones. He has had associated vomiting and diaphoresis. The pain is described as severe, constant , stabbing pain. He has tried to pass the stones at home with drinking plenty of fluids and taking oral pain medications without improvement. Nothing worsens the symptoms. He denies any focal abdominal pain. TRAVEL OUTSIDE OF THE [place] IN LAST 30 DAYS: No - Related Data Allergies/Adverse Reactions: fentanyl Adverse Reaction (Verified 02/10/17 00:31) trazodone [Trazodone] Adverse Reaction (Verified 02/10/17 00:31) Past Medical History - General Information source: Patient - Social History Smoking Status: Current Every Day Smoker Chew tobacco use (# tins/day): No Frequency of alcohol use: None Drug Abuse: None Lives with: Spouse/Significant other Family History: Reviewed & Not Pertinent Patient has suicidal ideation: No Patient has homicidal ideation: No - Past Medical History Cardiac Medical History: Reports: Hx Hypercholesterolemia, Hx Hypertension Endocrine Medical History: Reports: Hx Diabetes Mellitus Type 2 Renal/ Medical History: Reports: Hx Kidney Stones. Denies: Hx Peritoneal Dialysis GI Medical History: Reports: Hx Gastroesophageal Reflux Disease, Hx Hiatal Hernia Musculoskeltal Medical History: Reports Hx Musculoskeletal Trauma Traumatic Medical History: Reports: Hx Spine Fracture Past Surgical History: Reports: Hx Cholecystectomy, Hx Orthopedic Surgery - Neck fusion, chronic pain - Immunizations Hx Diphtheria, Pertussis, Tetanus Vaccination: Yes Review of Systems - Review of Systems Notes: Constitutional: Negative for fever. HENT: Negative for sore throat. Eyes: Negative for visual changes. Cardiovascular: Negative for chest pain. Respiratory: Negative for shortness of breath. Gastrointestinal: Positive for right-sided flank pain and vomiting Genitourinary: Positive for hematuria Musculoskeletal: Negative for back pain. Skin: Negative for rash. Neurological: Negative for headaches, weakness or numbness. 10 point ROS negative except as marked above and in HPI. Physical Exam - Vital signs Vitals: Temp Pulse BP Pulse Ox 98.4 F 97 188/133 H 94 02/13/17 21:39 02/13/17 21:39 02/13/17 21:39 02/13/17 21:39 Interpretation: Normal Notes: PHYSICAL EXAMINATION: GENERAL: Appears uncomfortable, diaphoretic, actively vomiting HEAD: Atraumatic, normocephalic. EYES: Pupils equal round and reactive to light, extraocular movements intact, sclera anicteric, conjunctiva are normal. ENT: nares patent, oropharynx clear without exudates. Moist mucous membranes. NECK: Normal range of motion, supple without lymphadenopathy LUNGS: Breath sounds clear to auscultation bilaterally and equal. No wheezes rales or rhonchi. HEART: Regular rate and rhythm without murmurs ABDOMEN: Soft, nontender, normoactive bowel sounds. No guarding, no rebound. No masses appreciated. Right CVA tenderness EXTREMITIES: Normal range of motion, no pitting or edema. No cyanosis. NEUROLOGICAL: No focal neurological deficits. Moves all extremities spontaneously and on command. PSYCH: Normal mood, normal affect. SKIN: Warm, Dry, normal turgor, no rashes or lesions noted. Course - Re-evaluation Re-evalutation: 02/14/17 01:26 Patient presents with his typical kidney stone pain on the right side. Diaphoretic, vomiting at time of arrival. The stone has been able to pass after analgesia and antiemetics have been provided. I again witness the patient extract the stone from his urethra. No labs will be sent since the same as patient's prior presentations. He has follow-up with urology in approximately one week.At this time will discharge with return precautions and follow-up recommendations. Verbal discharge instructions given a the bedside and opportunity for questions given. Medication warnings reviewed. Patient is in agreement with this plan and has verbalized understanding of return precautions and the need for primary care follow-up in the next 24-72 hours. - Vital Signs Vital signs: Temp Pulse Resp BP Pulse Ox 98.4 F 97 188/133 H 94 02/13/17 21:39 02/13/17 21:39 02/13/17 21:39 02/13/17 21:39 Discharge - Discharge Clinical Impression: Kidney stone on right side Condition: Good Disposition: HOME, SELF-CARE Additional Instructions: Please follow-up with your urologist as scheduled. Please return any time you need if you are having difficulty passing the stone at home. We are always happy to take care of you!
[2017-02-14] MEDS: DIAZEPAM INJ 10 MG/2 ML DISP.SYRIN IV PRN (02:48)
[2017-02-14] MEDS: DIPHENHYDRAMINE HCL 50 MG/ML VIAL IV PRN (02:48)
[2017-02-14] MEDS: HYDROMORPHONE HCL INJ/PF 2 MG/ML AMPULE IV PRN (02:49)
[2017-02-14] MEDS: KETAMINE HCL INJ 500 MG/10 ML VIAL IV PRN (02:50)
[2017-02-14 04:57] VITALS: BP 133/94
== END 2017-02-14 04:00 | disposition home or self-care (01) ==
LOC: ER 21:34
DX: N20.0 Calculus of kidney (principal); R10.9 Unspecified abdominal pain; F17.200 Nicotine dependence, unspecified, uncomplicated; E78.00 Pure hypercholesterolemia, unspecified; I10 Essential (primary) hypertension; E11.9 Type 2 diabetes mellitus without complications; Z87.442 Personal history of urinary calculi; Z90.49 Acquired absence of other specified parts of digestive tract; Z98.1 Arthrodesis status
CPT/HCPCS: 99283; 96374; 96375; J3360 ×2; J1200 ×2; J3490 ×4; J2765; J1170 ×2; J7030

== ENCOUNTER 2017-02-14 20:53 | Emergency (ER) | payer MEDICAID ==
--- NOTE | 2017-02-14 21:13 | ER Document Report ---
ED General - General Chief Complaint: Possible Kidney Stone Stated Complaint: POSSIBLE KIDNEY STONES Notes: Patient is a 46-year-old male well-known to me who again presents today with severe right-sided flank pain. Described as a constant, stabbing, severe pain. Nothing improves or worsens the pain. States this is identical to his prior presentations for the same illness. He has been trying to pass the stone at home for the past 5 hours unsuccessfully using aggressive oral hydration. He has had associated vomiting and diaphoresis. TRAVEL OUTSIDE OF THE [place] IN LAST 30 DAYS: No - Related Data Allergies/Adverse Reactions: fentanyl Adverse Reaction (Verified 02/14/17 20:56) trazodone [Trazodone] Adverse Reaction (Verified 02/14/17 20:56) Past Medical History - General Information source: Patient - Social History Smoking Status: Current Every Day Smoker Chew tobacco use (# tins/day): No Frequency of alcohol use: None Drug Abuse: None Lives with: Spouse/Significant other Family History: Reviewed & Not Pertinent - Past Medical History Cardiac Medical History: Reports: Hx Hypercholesterolemia, Hx Hypertension Endocrine Medical History: Reports: Hx Diabetes Mellitus Type 2 Renal/ Medical History: Reports: Hx Kidney Stones. Denies: Hx Peritoneal Dialysis GI Medical History: Reports: Hx Gastroesophageal Reflux Disease, Hx Hiatal Hernia Musculoskeltal Medical History: Reports Hx Musculoskeletal Trauma Traumatic Medical History: Reports: Hx Spine Fracture Past Surgical History: Reports: Hx Cholecystectomy, Hx Orthopedic Surgery - Neck fusion, chronic pain - Immunizations Hx Diphtheria, Pertussis, Tetanus Vaccination: Yes Review of Systems - Review of Systems Notes: Constitutional: Negative for fever. HENT: Negative for sore throat. Eyes: Negative for visual changes. Cardiovascular: Negative for chest pain. Respiratory: Negative for shortness of breath. Gastrointestinal: Positive for vomiting and flank pain Genitourinary: Positive for hematuria Musculoskeletal: Negative for back pain. Skin: Negative for rash. Neurological: Negative for headaches, weakness or numbness. 10 point ROS negative except as marked above and in HPI. Physical Exam - Vital signs Vitals: Temp Pulse BP 98.1 F 109 H 162/111 H 02/14/17 20:56 02/14/17 20:56 02/14/17 20:56 Interpretation: Hypertensive, Tachycardic Notes: PHYSICAL EXAMINATION: GENERAL: Appears uncomfortable, diaphoretic and vomiting HEAD: Atraumatic, normocephalic. EYES: Pupils equal round and reactive to light, extraocular movements intact, sclera anicteric, conjunctiva are normal. ENT: nares patent, oropharynx clear without exudates. Moist mucous membranes. NECK: Normal range of motion, supple without lymphadenopathy LUNGS: Breath sounds clear to auscultation bilaterally and equal. No wheezes rales or rhonchi. HEART: Regular rate and rhythm without murmurs ABDOMEN: Soft, nontender, normoactive bowel sounds. No guarding, no rebound. No masses appreciated. EXTREMITIES: Normal range of motion, no pitting or edema. No cyanosis. NEUROLOGICAL: No focal neurological deficits. Moves all extremities spontaneously and on command. PSYCH: Normal mood, normal affect. SKIN: Warm, severely diaphoretic, normal turgor, no rashes or lesions noted. Course - Re-evaluation Re-evalutation: 02/15/17 01:42 Patient presented again today with right-sided flank pain. He did again extract a 4-5 mm stone from his urethra. Pain was able to control with our standard medications. No labs obtained secondary to this being atypical presentation for this patient.At this time will discharge with return precautions and follow-up recommendations. Verbal discharge instructions given a the bedside and opportunity for questions given. Medication warnings reviewed. Patient is in agreement with this plan and has verbalized understanding of return precautions and the need for primary care follow-up in the next 24-72 hours. - Vital Signs Vital signs: Temp Pulse Resp BP Pulse Ox 98.9 F 94 19 162/111 H 96 02/15/17 02:18 02/15/17 02:18 02/15/17 02:18 02/14/17 20:56 02/15/17 02:18 Discharge - Discharge Clinical Impression: Kidney stone on right side Condition: Good Disposition: HOME, SELF-CARE Additional Instructions: Please return at any time for any concerns you have. I'm always happy to take care of you . Referrals: GEORGINA HERRERA MD [Primary Care Provider] - Follow up as needed
[2017-02-14] MEDS ORDERED: NORMAL SALINE 1000 ML 1,000 ML IV ONE (21:15)
[2017-02-14] MEDS ORDERED: TAMSULOSIN HCL 0.4 MG CAP.SR.24H PO ONE (21:16)
[2017-02-14] MEDS: KETAMINE HCL INJ 500 MG/10 ML VIAL IV PRN ×2 (21:59→23:01)
[2017-02-14] MEDS: HYDROMORPHONE HCL INJ/PF 2 MG/ML AMPULE IV PRN ×2 (21:59→23:01)
[2017-02-14] MEDS: DIPHENHYDRAMINE HCL 50 MG/ML VIAL IV PRN ×2 (22:00→23:01)
[2017-02-14] MEDS ORDERED: LIDOCAINE 2% URO-JET 5 ML KIT MM ONE (22:14)
[2017-02-14] MEDS: DIAZEPAM INJ 10 MG/2 ML DISP.SYRIN IV PRN ×2 (22:20→23:30)
[2017-02-15] MEDS: DIAZEPAM INJ 10 MG/2 ML DISP.SYRIN IV PRN (00:12)
[2017-02-15] MEDS: HYDROMORPHONE HCL INJ/PF 2 MG/ML AMPULE IV PRN ×2 (00:12→02:01)
[2017-02-15] MEDS: KETAMINE HCL INJ 500 MG/10 ML VIAL IV PRN (00:13)
[2017-02-15] MEDS ORDERED: METOCLOPRAMIDE HCL INJ/PF 10 MG/2 ML SDV IV ONE (00:37)
[2017-02-15] MEDS ORDERED: METOCLOPRAMIDE HCL INJ/PF 10 MG/2 ML SDV ONE (00:40)
[2017-02-15 02:18] VITALS: BP 162/111
== END 2017-02-15 02:22 | disposition home or self-care (01) ==
LOC: ER 20:53
DX: N20.0 Calculus of kidney (principal); R10.9 Unspecified abdominal pain; R11.10 Vomiting, unspecified; R61 Generalized hyperhidrosis; K21.9 Gastro-esophageal reflux disease without esophagitis; E78.00 Pure hypercholesterolemia, unspecified; I10 Essential (primary) hypertension; E11.9 Type 2 diabetes mellitus without complications; Z87.442 Personal history of urinary calculi; Z90.49 Acquired absence of other specified parts of digestive tract; Z98.1 Arthrodesis status
CPT/HCPCS: 96376; 99284; 96361; 96374; 96375; J3360 ×2; J1200; J3490 ×4; J2765; J1170 ×2; J7030

== ENCOUNTER 2017-02-15 21:12 | Emergency (ER) | payer MEDICAID ==
--- NOTE | 2017-02-15 21:34 | ER Document Report ---
ED Medical Screen (RME) - General Stated Complaint: VOMITING LOW BACK PAIN Time seen by provider: 21:34 Mode of Arrival: Ambulatory Information source: Patient Notes: 46-year-old male presents to ED for right groin pelvic pain. He has a history of frequent stones. States she has hematuria severe pain. I have greeted and performed a rapid initial assessment of this patient. A comprehensive ED assessment and evaluation of the patient, analysis of test results and completion of medical decision making process will be conducted by an additional ED providers. TRAVEL OUTSIDE OF THE [place] IN LAST 30 DAYS: No - Related Data Allergies/Adverse Reactions: fentanyl Adverse Reaction (Verified 02/14/17 20:56) trazodone [Trazodone] Adverse Reaction (Verified 02/14/17 20:56) Past Medical History - Past Medical History Cardiac Medical History: Reports: Hx Hypercholesterolemia, Hx Hypertension Endocrine Medical History: Reports: Hx Diabetes Mellitus Type 2 Renal/ Medical History: Reports: Hx Kidney Stones. Denies: Hx Peritoneal Dialysis GI Medical History: Reports: Hx Gastroesophageal Reflux Disease, Hx Hiatal Hernia Musculoskeltal Medical History: Reports Hx Musculoskeletal Trauma Traumatic Medical History: Reports: Hx Spine Fracture Past Surgical History: Reports: Hx Cholecystectomy, Hx Orthopedic Surgery - Neck fusion, chronic pain - Immunizations Hx Diphtheria, Pertussis, Tetanus Vaccination: Yes
[2017-02-15] MEDS ORDERED: KETOROLAC TROMETHAMINE INJ/PF 30 MG/1 ML SDV IV ONE (22:06)
--- NOTE | 2017-02-15 22:07 | ER Document Report ---
ED General - General Chief Complaint: Possible Kidney Stone Stated Complaint: VOMITING LOW BACK PAIN Mode of Arrival: Ambulatory Notes: Patient is a 46-year-old male well-known to me who again presents today with right flank pain radiating into his right groin. Described as a severe, constant, throbbing pain. Nothing improves or worsens the pain. He has been trying to pass a stone at home for the past several hours without success. He has had associated diaphoresis and vomiting. This is identical to his prior presentations for the same. TRAVEL OUTSIDE OF THE [place] IN LAST 30 DAYS: No - Related Data Allergies/Adverse Reactions: fentanyl Adverse Reaction (Verified 02/14/17 20:56) trazodone [Trazodone] Adverse Reaction (Verified 02/14/17 20:56) Past Medical History - General Information source: Patient - Social History Smoking Status: Current Every Day Smoker Chew tobacco use (# tins/day): No Frequency of alcohol use: Rare Lives with: Spouse/Significant other Family History: Reviewed & Not Pertinent Patient has suicidal ideation: No Patient has homicidal ideation: No - Past Medical History Cardiac Medical History: Reports: Hx Hypercholesterolemia, Hx Hypertension Endocrine Medical History: Reports: Hx Diabetes Mellitus Type 2 Renal/ Medical History: Reports: Hx Kidney Stones. Denies: Hx Peritoneal Dialysis GI Medical History: Reports: Hx Gastroesophageal Reflux Disease, Hx Hiatal Hernia Musculoskeltal Medical History: Reports Hx Musculoskeletal Trauma Traumatic Medical History: Reports: Hx Spine Fracture Past Surgical History: Reports: Hx Cholecystectomy, Hx Orthopedic Surgery - Neck fusion, chronic pain - Immunizations Hx Diphtheria, Pertussis, Tetanus Vaccination: Yes Review of Systems - Review of Systems Notes: Constitutional: Negative for fever. HENT: Negative for sore throat. Eyes: Negative for visual changes. Cardiovascular: Negative for chest pain. Respiratory: Negative for shortness of breath. Gastrointestinal: Positive for flank pain and vomiting Genitourinary: Positive for hematuria Musculoskeletal: Negative for back pain. Skin: Negative for rash. Neurological: Negative for headaches, weakness or numbness. 10 point ROS negative except as marked above and in HPI. Physical Exam - Vital signs Vitals: Temp Pulse Resp BP Pulse Ox 97.9 F 99 24 H 161/122 H 95 02/15/17 21:35 02/15/17 21:35 02/15/17 21:35 02/15/17 21:35 02/15/17 21:35 Interpretation: Hypertensive Notes: PHYSICAL EXAMINATION: GENERAL: Appears uncomfortable, diaphoretic and significant pain HEAD: Atraumatic, normocephalic. EYES: Pupils equal round and reactive to light, extraocular movements intact, sclera anicteric, conjunctiva are normal. ENT: nares patent, oropharynx clear without exudates. Moderately dry mucous membranes. NECK: Normal range of motion, supple without lymphadenopathy LUNGS: Breath sounds clear to auscultation bilaterally and equal. No wheezes rales or rhonchi. HEART: Regular rate and rhythm without murmurs ABDOMEN: Soft, right flank pain. EXTREMITIES: Normal range of motion, no pitting or edema. No cyanosis. NEUROLOGICAL: No focal neurological deficits. Moves all extremities spontaneously and on command. PSYCH: Normal mood, normal affect. SKIN: Warm, severely diaphoretic, normal turgor, no rashes or lesions noted. Course - Re-evaluation Re-evalutation: 02/16/17 02:10 Patient presents with this typical right-sided kidney stone, extracted three 3- 4mm kidney stones tonight again witnessed by staff extracting stones. Symptoms controlled with our typical pain management approach.At this time will discharge with return precautions and follow-up recommendations. Verbal discharge instructions given a the bedside and opportunity for questions given. Medication warnings reviewed. Patient is in agreement with this plan and has verbalized understanding of return precautions and the need for primary care follow-up in the next 24-72 hours. - Vital Signs Vital signs: Temp Pulse Resp BP Pulse Ox 97.9 F 81 22 H 126/81 H 90 L 02/15/17 21:35 02/16/17 02:41 02/16/17 02:41 02/16/17 02:41 02/16/17 02:41 Discharge - Discharge Clinical Impression: Kidney stone on right side Condition: Good Disposition: HOME, SELF-CARE Additional Instructions: Please return if you have recurrence of your symptoms. We are always happy to take care of you.
[2017-02-15] MEDS: HYDROMORPHONE HCL INJ/PF 2 MG/ML AMPULE IV PRN ×2 (22:22→23:58)
[2017-02-15] MEDS ORDERED: TAMSULOSIN HCL 0.4 MG CAP.SR.24H PO ONE (22:37)
[2017-02-15] MEDS ORDERED: LIDOCAINE 2% URO-JET 5 ML KIT MM ONE (22:37)
[2017-02-15] MEDS: METOCLOPRAMIDE HCL INJ/PF 10 MG/2 ML SDV IV PRN (22:45)
[2017-02-15] MEDS: KETAMINE HCL INJ 500 MG/10 ML VIAL IV PRN (22:47)
[2017-02-15] MEDS: DIAZEPAM INJ 10 MG/2 ML DISP.SYRIN IV PRN (22:50)
[2017-02-16] MEDS: DIPHENHYDRAMINE HCL 50 MG/ML VIAL IV PRN ×2 (00:01→01:38)
[2017-02-16] MEDS: DIAZEPAM INJ 10 MG/2 ML DISP.SYRIN IV PRN ×2 (00:07→01:44)
[2017-02-16] MEDS: KETAMINE HCL INJ 500 MG/10 ML VIAL IV PRN ×2 (00:09→01:38)
[2017-02-16] MEDS: HYDROMORPHONE HCL INJ/PF 2 MG/ML AMPULE IV PRN (01:37)
[2017-02-16] MEDS: METOCLOPRAMIDE HCL INJ/PF 10 MG/2 ML SDV IV PRN (01:44)
[2017-02-16] MEDS ORDERED: LIDOCAINE 2% URO-JET 5 ML KIT MM ONE (01:48)
[2017-02-16 02:47] VITALS: BP 126/81
== END 2017-02-16 02:41 | disposition home or self-care (01) ==
LOC: ER 21:12
DX: N20.0 Calculus of kidney (principal); R11.10 Vomiting, unspecified; M54.5 Low back pain; F17.200 Nicotine dependence, unspecified, uncomplicated
CPT/HCPCS: 96376; 99282; 96374; 96375; J3360 ×2; J1200; J3490 ×5; J1885; J2765 ×2; J1170 ×2

== ENCOUNTER 2017-02-17 01:07 | Emergency (ER) | payer MEDICAID ==
[2017-02-17] MEDS ORDERED: METOCLOPRAMIDE HCL INJ/PF 10 MG/2 ML SDV IV ONE (02:15)
[2017-02-17] MEDS ORDERED: HYDROMORPHONE HCL INJ/PF 2 MG/ML AMPULE IV ONE ×3 (02:15→04:45)
[2017-02-17] MEDS ORDERED: KETAMINE HCL INJ 500 MG/10 ML VIAL IV ONE ×2 (02:15→03:54)
[2017-02-17] MEDS ORDERED: LIDOCAINE 2% URO-JET 5 ML KIT MM ONE (02:16)
[2017-02-17] MEDS ORDERED: NORMAL SALINE 1000 ML 1,000 ML IV ONE (02:16)
--- NOTE | 2017-02-17 02:18 | ER Document Report ---
ED General - General Chief Complaint: Flank Pain Stated Complaint: FLANK PAIN Notes: Patient is a 46-year-old male who is well-known to ER due to his history of recurrent uric acid kidney stones. He is followed by urologist in [facility]. 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 He recently had ablation therapy done to some the scar tissue in his urethra. He continues to pass uric acid stones that sometimes becomes stuck in his urethra. He comes here frequently for pain control as he tries to pass the stones. He sees an urologist here in [place] tomorrow. Denies any fevers. Says the pain is exactly like his previous pain. He says his current pain is mostly on the right side near his bladder. Some vomiting. No other complaints at this time. TRAVEL OUTSIDE OF THE [place] IN LAST 30 DAYS: No - Related Data Allergies/Adverse Reactions: fentanyl Adverse Reaction (Verified 02/14/17 20:56) trazodone [Trazodone] Adverse Reaction (Verified 02/14/17 20:56) Past Medical History - Social History Smoking Status: Current Every Day Smoker Chew tobacco use (# tins/day): No Frequency of alcohol use: Occasional Drug Abuse: None Family History: Reviewed & Not Pertinent Patient has suicidal ideation: No Patient has homicidal ideation: No - Past Medical History Cardiac Medical History: Reports: Hx Hypercholesterolemia, Hx Hypertension Endocrine Medical History: Reports: Hx Diabetes Mellitus Type 2 Renal/ Medical History: Reports: Hx Kidney Stones. Denies: Hx Peritoneal Dialysis GI Medical History: Reports: Hx Gastroesophageal Reflux Disease, Hx Hiatal Hernia Musculoskeltal Medical History: Reports Hx Musculoskeletal Trauma Traumatic Medical History: Reports: Hx Spine Fracture Past Surgical History: Reports: Hx Cholecystectomy, Hx Orthopedic Surgery - Neck fusion, chronic pain - Immunizations Hx Diphtheria, Pertussis, Tetanus Vaccination: Yes Review of Systems - Review of Systems Notes: My Normal Review Basic REVIEW OF SYSTEMS: CONSTITUTIONAL : Denies fever, chills, or sweats. Denies recent illness. RESPIRATORY: Denies cough, cold, or chest congestion. Denies shortness of breath, difficulty breathing, or wheezing. GASTROINTESTINAL: Right-sided pain. Some vomiting. GENITOURINARY: Hematuria. Right-sided pain. MUSCULOSKELETAL: Denies neck or back pain or joint pain or swelling. SKIN: Denies rash or skin lesions. NEUROLOGICAL: Denies altered mental status or loss of consciousness. Denies headache. Denies weakness or paralysis or loss of use of either side. Denies problems with gait or speech. Denies sensory or motor loss. ALL OTHER SYSTEMS REVIEWED AND NEGATIVE. Physical Exam - Vital signs Vitals: Temp Pulse Resp BP Pulse Ox 98.3 F 98 18 160/109 H 96 02/17/17 01:13 02/17/17 01:13 02/17/17 01:13 02/17/17 01:13 02/17/17 01:13 - Notes Notes: General Appearance: Well nourished, alert, cooperative, no acute distress, severe obvious discomfort. Vitals: reviewed, See vital signs table. Head: no swelling or tenderness to the head Eyes: PERRL, EOMI, Conjuctiva clear Mouth: No decreasd moisture Neck: Supple, no neck tenderness, No thyromegaly Lungs: No wheezing, No rales, No rhonci, No accessory muscle use, good air exchange bilaterally. Heart: Normal rate, Regular rythm, No murmur, no rub Abdomen: Normal BS, soft, No rigidity, No abdominal tenderness, No guarding, no rebound, no abdominal masses, no organomegaly Extremities: strength 5/5 in all extremities, good pulses in all extremities, no swelling or tenderness in the extremities, no edema. Skin: warm, dry, appropriate color, no rash Neuro: speech clear, oriented x 3, normal affect, responds appropriately to questions. Course - Vital Signs Vital signs: Temp Pulse Resp BP Pulse Ox 98.3 F 98 18 160/109 H 96 02/17/17 01:13 02/17/17 01:13 02/17/17 01:13 02/17/17 01:13 02/17/17 01:13 - Transfer of Care Notes: 02/17/17 05:16 Patient has received usual dosages of the pain medicine as well as ketamine that he receives it helps some passes stones. Patient did try to retrieve stone from his urethra but was unable to do so. Patient has for a third dose of ketamine. I informed him I am uncomfortable giving him a third dose of ketamine was in such a short time frame. I fear is that any further dosages of ketamine would constitute possible procedural sedation. They give the patient on low-dose Valium. Patient is now requesting be discharged home. He has a follow-up appointment today with the urologist. Patient to return to ER feels vomiting, intractable pain, fevers, or further concerns. Dictation of this chart was performed using voice recognition software; therefore, there may be some unintended grammatical errors. Discharge - Discharge Clinical Impression: Flank pain Condition: Good Disposition: HOME, SELF-CARE Additional Instructions: PAIN MEDICATION INJECTION: You have received an injection of a pain medication. You should experience significant pain relief within 45 minutes. This drug is a narcotic - - it will impair your judgement, slow your reaction time and make you sleepy ( as well as relieve your pain). Narcotics also can cause nausea. You should not drive, work with machinery, or perform any task requiring mental alertness until all effects of the medication are gone -- six to eight hours. Do not take any alcohol, or sedatives, and do not take any other medication without checking with your physician. ANT[place] MEDICATION: You have been given a medication to suppress nausea and vomiting. This type of medication can be given as a shot, pill, or suppository. It will usually last for many hours. Pills and shots usually last six to eight hours, suppositories last about 12 hours. For the typical illness, only one or two doses of the medication may be necessary. Mild lightheadedness may occur. This type of medicine can cause drowsiness. Do not drive or operate dangerous machinery while under its influence. Do not mix with alcohol. See your doctor at once if you have muscle spasms or tightness, or uncontrollable motions (particularly of the neck, mouth, or jaw). Persistent vomiting or severe lightheadedness should also be evaluated by the physician. FOLLOW-UP CARE: If you have been referred to a physician for follow-up care, call the physician s office for an appointment as you were instructed or within the next two days. If you experience worsening or a significant change in your symptoms, notify the physician immediately or return to the Emergency Department at any time for re-evaluation. Please follow up closely with your urologist today as scheduled. Return to the ER if you have fevers, intractable vomiting, or worsening pain.
[2017-02-17] MEDS ORDERED: DIPHENHYDRAMINE HCL 50 MG/ML VIAL IV ONE (02:34)
[2017-02-17] MEDS ORDERED: DIAZEPAM INJ 10 MG/2 ML DISP.SYRIN IV ONE ×4 (02:56→05:07)
[2017-02-17] MEDS ORDERED: TAMSULOSIN HCL 0.4 MG CAP.SR.24H PO ONE (03:37)
[2017-02-17 05:22] VITALS: BP 129/96
== END 2017-02-17 05:22 | disposition home or self-care (01) ==
LOC: ER 01:07
DX: R10.9 Unspecified abdominal pain (principal); F17.200 Nicotine dependence, unspecified, uncomplicated; E78.00 Pure hypercholesterolemia, unspecified; I10 Essential (primary) hypertension; E11.9 Type 2 diabetes mellitus without complications; Z87.442 Personal history of urinary calculi; Z90.49 Acquired absence of other specified parts of digestive tract; Z98.1 Arthrodesis status
CPT/HCPCS: 96376; 99283; 96361; 96374; 96375; J3360; J1200; J3490 ×3; J2765; J1170; J7030

== ENCOUNTER 2017-02-18 21:15 | Emergency (ER) | payer MEDICAID ==
[2017-02-18] MEDS ORDERED: OXYCODONE-ACETAMINOPHEN 5-325 MG TABLET PO ONE (21:37)
[2017-02-18] MEDS ORDERED: ONDANSETRON 4 MG TAB.RAPDIS PO ONE (21:37)
--- NOTE | 2017-02-18 21:38 | ER Document Report ---
ED Medical Screen (RME) - General Stated Complaint: POSSIBLE KIDNEY STONE Mode of Arrival: Ambulatory Information source: Patient Notes: Patient complains of flareup of kidney stones, patient reports that he is also worried that he is having a GI develop in addition to his kidney stones. Patient states he has been having vomiting as well as diarrhea. I have greeted and performed a rapid initial assessment of this patient. A comprehensive ED assessment and evaluation of the patient, analysis of test results and completion of the medical decision making process will be conducted by additional ED providers. TRAVEL OUTSIDE OF THE [place] IN LAST 30 DAYS: No - Related Data Allergies/Adverse Reactions: fentanyl Adverse Reaction (Verified 02/18/17 21:35) trazodone [Trazodone] Adverse Reaction (Verified 02/18/17 21:35) Past Medical History - Past Medical History Cardiac Medical History: Reports: Hx Hypercholesterolemia, Hx Hypertension Endocrine Medical History: Reports: Hx Diabetes Mellitus Type 2 Renal/ Medical History: Reports: Hx Kidney Stones. Denies: Hx Peritoneal Dialysis GI Medical History: Reports: Hx Gastroesophageal Reflux Disease, Hx Hiatal Hernia Musculoskeltal Medical History: Reports Hx Musculoskeletal Trauma Traumatic Medical History: Reports: Hx Spine Fracture Past Surgical History: Reports: Hx Cholecystectomy, Hx Orthopedic Surgery - Neck fusion, chronic pain - Immunizations Hx Diphtheria, Pertussis, Tetanus Vaccination: Yes Physical Exam - Abdominal Tenderness: Tender - Right lower pelvic area
--- NOTE | 2017-02-18 21:59 | ER Document Report ---
ED GI/ - General Time seen by provider: 10:05 Mode of Arrival: Ambulatory TRAVEL OUTSIDE OF THE [place] IN LAST 30 DAYS: No - HPI Patient complains to provider of: Flank pain Onset: Other - see HPI note Quality of pain: Stabbing Associated symptoms: Diarrhea, Nausea, Vomiting - General Chief Complaint: Possible Kidney Stone Stated Complaint: POSSIBLE KIDNEY STONE Notes: Patient is a 46 year old male presenting to the emergency department for kidney stones. Patient has a history of uric acid kidney stones. Patient states that the has been vomiting as well as having diarrhea. Patient has been vomiting more than usual and not able to keep things down. Triage note states patient has had nausea and vomiting x8 since presenting to the ED. Patient's pain is more on the right flank. Patient has been evaluated and treated for his kidney stones multiple times in the past at this ED including last night. Patient states he took ibuprofen prior to arrival. Patient was scheduled to follow up with a urologist today. Patient states that he did not make his urology appointment for today and will see them tomorrow. Patient is allergic to fentanyl and trazodone. (ARCHANA HANNON) - Related Data Allergies/Adverse Reactions: fentanyl Adverse Reaction (Verified 02/18/17 21:35) trazodone [Trazodone] Adverse Reaction (Verified 02/18/17 21:35) Past Medical History - General Information source: Patient - Social History Smoking Status: Current Every Day Smoker Chew tobacco use (# tins/day): No Frequency of alcohol use: None Drug Abuse: None Family History: None - Past Medical History Cardiac Medical History: Reports: Hx Hypercholesterolemia, Hx Hypertension Endocrine Medical History: Reports: Hx Diabetes Mellitus Type 2 Renal/ Medical History: Reports: Hx Kidney Stones - uric acid stones GI Medical History: Reports: Hx Gastroesophageal Reflux Disease, Hx Hiatal Hernia Musculoskeltal Medical History: Reports Hx Musculoskeletal Trauma Traumatic Medical History: Reports: Hx Spine Fracture Past Surgical History: Reports: Hx Cholecystectomy, Hx Orthopedic Surgery - Neck fusion, chronic pain - Immunizations Hx Diphtheria, Pertussis, Tetanus Vaccination: Yes Review of Systems - Review of Systems Constitutional: No symptoms reported EENT: No symptoms reported Cardiovascular: No symptoms reported Respiratory: No symptoms reported Gastrointestinal: See HPI, Diarrhea, Nausea, Vomiting Genitourinary: See HPI, Flank pain Male Genitourinary: No symptoms reported Musculoskeletal: No symptoms reported Skin: No symptoms reported Hematologic/Lymphatic: No symptoms reported Neurological/Psychological: No symptoms reported -: Yes All other systems reviewed and negative Physical Exam - Vital signs Interpretation: Hypertensive, Tachycardic - during exam - Vital signs Vitals: Temp Pulse Resp BP Pulse Ox 98.3 F 104 H 27 H 150/114 H 97 02/18/17 22:59 02/18/17 22:59 02/18/17 22:59 02/18/17 22:59 02/18/17 22:59 - Notes Notes: GENERAL: Appears uncomfortable leaning over the bed, diaphoretic, well-nourished , and in moderate distress. HEAD: Atraumatic, normocephalic EYES: Pupils equal round and reactive to light, extraocular movements intact, sclera anicteric, no conjunctival injection or discharge ENT: Nares patent, oropharynx clear without exudates, moist mucous membranes NECK: Normal range of motion, supple without lymphadenopathy LUNGS: Breath sounds clear to auscultation bilaterally and equal. No wheezes rales or rhonchi HEART: Tachycardia. Regular rhythm without murmurs ABDOMEN: Soft, diffuse tenderness of the right abdomen, normoactive bowel sounds. No guarding, no rebound. No masses appreciated. No [place] sign BACK: Diffuse right sided CVA tenderness. EXTREMITIES: Normal range of motion, no calf tenderness, no edema NEUROLOGICAL: Cranial nerves grossly intact. Normal speech, Normal sensory and motor exams. No gross cerebellar abnormalities PSYCH: Normal mood, normal affect SKIN: Warm, Diaphoretic, normal turgor, no lesions noted (ARCHANA HANNON) Course - Re-evaluation Re-evalutation: 02/19/17 00:45 Patient reports he had not had much improvement after I rechecked him after going to a code on the floor. He states he usually does not get much relief unless all of the medication is given at once and is asking for ketamine as well and multiple doses if necessary to help him relax so he can pass the urethral stone which staff states they have witnessed him "milk out" before. Reviewing his records this seems to be an extremely unusual situation and he has what sounds like a very unfortunate condition. I have noted that he has received ketamine as well as in the past in addition to a variety of medications. I discussed with him that I was not comfortable giving such large amounts of pain medications all at once and offered urology evaluation which would require transfer. At this point he has refused stating he has paid his own money and named a variety of facilities, but has not gotten any help. He states he has a new urology appointment for today but again he had missed his one the prior day because of being in the emergency department through the night he reported. I did discuss with him I'll give him one more round of medications as he is ambulating attempting to pass what he reports as recurrent uric acid stones that he can't pass due to a urethral stricture, which reconstructive surgery would be needed. For further evaluation, a cysturethrogram at this point would probably be necessary to see the obstruction. He has urinated here and has no retention noted. An IVP could be considered for evaluation for ureteral obstruction but he reports urethral obstruction issues. He will decide at that point regarding transfer or discharge. (KURTIS PERAZA) - Vital Signs Vital signs: Temp Pulse Resp BP Pulse Ox 98.3 F 104 H 27 H 150/114 H 97 02/18/17 22:59 02/18/17 22:59 02/18/17 22:59 02/18/17 22:59 02/18/17 22:59 - Laboratory Laboratory results interpreted by me: 02/18/17 23:24 Urine Protein 100 H Urine Glucose (UA) 50 H Urine Ketones TRACE H Urine Blood LARGE H Ur Leukocyte Esterase TRACE H Discharge - Discharge Clinical Impression: Urethral obstruction, UTI (urinary tract infection) Condition: Good Disposition: HOME, SELF-CARE Additional Instructions: Follow-up with your urologist today. Return for emergency. Take the Cipro as directed. A urine culture will be pending. Prescriptions: Ciprofloxacin HCl [Cipro 500 mg Tablet] 500 mg PO BID #14 tablet Scribe Attestation: 02/19/17 00:58 I personally performed the services described in the documentation, reviewed and edited the documentation which was dictated to the scribe in my presence, and it accurately records my words and actions. (KURTIS PERAZA) Scribe Documentation - Scribe Written by Gisela:: Archana Hannon 02/18/17 22:15 acting as scribe for :: Siri
[2017-02-18] MEDS ORDERED: HYDROMORPHONE HCL INJ/PF 2 MG/ML AMPULE IV ONE (22:08)
[2017-02-18] MEDS ORDERED: PROMETHAZINE HCL INJ 25 MG/1 ML VIAL IV ONE (22:09)
[2017-02-18] MEDS ORDERED: TAMSULOSIN HCL 0.4 MG CAP.SR.24H PO ONE (22:10)
[2017-02-18] MEDS ORDERED: PROMETHAZINE HCL INJ 25 MG/1 ML VIAL ONE (23:17)
[2017-02-18] MEDS ORDERED: KETOROLAC TROMETHAMINE INJ/PF 30 MG/1 ML SDV IV ONE (23:22)
[2017-02-18] MEDS ORDERED: DIAZEPAM INJ 10 MG/2 ML DISP.SYRIN IV ONE (23:23)
[2017-02-18 23:47] LABS: APPEARANCE,URINE TURBID; BILIRUBIN,URINE NEGATIVE (NEGATIVE); GLUCOSE, URINE 50 mg/dL (NEGATIVE); KETONES,URINE TRACE mg/dL (NEGATIVE); LEUKOCYTE ESTERASE,URINE TRACE (NEGATIVE); NITRITE,URINE NEGATIVE (NEGATIVE); PROTEIN,URINE 100 mg/dL (NEGATIVE); URINE SPECIFIC GRAVITY 1.031; UROBILINOGEN,URINE NEGATIVE mg/dL (<2.0)
[2017-02-19] MEDS ORDERED: HYDROMORPHONE HCL INJ/PF 2 MG/ML AMPULE IV ONE (00:42)
[2017-02-19] MEDS ORDERED: DIAZEPAM INJ 10 MG/2 ML DISP.SYRIN IV ONE (00:42)
[2017-02-19 01:37] VITALS: BP 134/89
== END 2017-02-19 01:37 | disposition home or self-care (01) ==
LOC: ER 21:15
DX: N36.8 Other specified disorders of urethra (principal); N39.0 Urinary tract infection, site not specified; R11.2 Nausea with vomiting, unspecified; R19.7 Diarrhea, unspecified; R10.9 Unspecified abdominal pain; R00.0 Tachycardia, unspecified; R61 Generalized hyperhidrosis; E11.9 Type 2 diabetes mellitus without complications; I10 Essential (primary) hypertension; F17.200 Nicotine dependence, unspecified, uncomplicated; Z88.8 Allergy status to other drugs, medicaments and biological substances; Z88.5 Allergy status to narcotic agent; Z87.442 Personal history of urinary calculi
CPT/HCPCS: 96376; 99283; 96374; 96375; 81001; J3360 ×2; S0119; J1885; J1170 ×2; J3490; J2550

== ENCOUNTER 2017-02-19 01:37 | Emergency (ER) | payer MEDICAID ==
[2017-02-19] MEDS ORDERED: DIAZEPAM INJ 10 MG/2 ML DISP.SYRIN IV ONE ×2 (01:45→02:48)
[2017-02-19] MEDS ORDERED: LIDOCAINE 2% URO-JET 5 ML KIT MM ONE (01:45)
[2017-02-19] MEDS ORDERED: KETAMINE HCL INJ 500 MG/10 ML VIAL IV ONE (01:45)
--- NOTE | 2017-02-19 01:52 | ER Document Report ---
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 He comes here frequently because of stones get stuck in his urethra. He was seen in the last hour. He was discharged. Patient and check back in immediately because his pain is not under control and he has not yet passed a stone. Patient is noncompliant with urologist tomorrow. He was scheduled to see an urologist 2 days ago but did not make it to the appointment because he was in the ER the night before and was exhausted. He is on chronic pain medication and his pain is typically very difficult to control. Denies fevers. Some nausea. No other complaints at this time. TRAVEL OUTSIDE OF THE [place] IN LAST 30 DAYS: No - Related Data Allergies/Adverse Reactions: fentanyl Adverse Reaction (Verified 02/18/17 21:35) trazodone [Trazodone] Adverse Reaction (Verified 02/18/17 21:35) Past Medical History - Social History Smoking Status: Never Smoker Frequency of alcohol use: None Drug Abuse: None Family History: None - Past Medical History Cardiac Medical History: Reports: Hx Hypercholesterolemia, Hx Hypertension Endocrine Medical History: Reports: Hx Diabetes Mellitus Type 2 Renal/ Medical History: Reports: Hx Kidney Stones - uric acid stones. Denies : Hx Peritoneal Dialysis GI Medical History: Reports: Hx Gastroesophageal Reflux Disease, Hx Hiatal Hernia Musculoskeltal Medical History: Reports Hx Musculoskeletal Trauma Traumatic Medical History: Reports: Hx Spine Fracture Past Surgical History: Reports: Hx Cholecystectomy, Hx Orthopedic Surgery - Neck fusion, chronic pain - Immunizations Hx Diphtheria, Pertussis, Tetanus Vaccination: Yes Review of Systems - Review of Systems Notes: My Normal Review Basic REVIEW OF SYSTEMS: CONSTITUTIONAL : Denies fever, chills, or sweats. Denies recent illness. EENT: Denies eye, ear, throat, or mouth pain or symptoms. Denies nasal or sinus congestion. RESPIRATORY: Denies cough, cold, or chest congestion. Denies shortness of breath, difficulty breathing, or wheezing. GASTROINTESTINAL: Denies abdominal pain. Denies nausea, vomiting, or diarrhea. Denies constipation. Last BM: GENITOURINARY: Blood in the urine. MUSCULOSKELETAL: Denies neck or back pain or joint pain or swelling. SKIN: Denies rash or skin lesions. NEUROLOGICAL: Denies altered mental status or loss of consciousness. Denies headache. Denies weakness or paralysis or loss of use of either side. Denies problems with gait or speech. Denies sensory or motor loss. ALL OTHER SYSTEMS REVIEWED AND NEGATIVE. Physical Exam - Vital signs Vitals: Temp Pulse Resp BP Pulse Ox 98.0 F 102 H 18 121/88 H 96 02/19/17 02:50 02/19/17 02:50 02/19/17 02:50 02/19/17 02:50 02/19/17 02:50 - Notes Notes: General Appearance: Well nourished, alert, cooperative, no acute distress, moderate obvious discomfort. Patient is tearful Vitals: reviewed, See vital signs table. Eyes: PERRL, EOMI, Conjuctiva clear Mouth: No decreasd moisture Lungs: No wheezing, No rales, No rhonci, No accessory muscle use, good air exchange bilaterally. Heart: Normal rate, Regular rythm, No murmur, no rub Abdomen: Normal BS, soft, No rigidity, No abdominal tenderness, No guarding, no rebound, no abdominal masses, no organomegaly Skin: warm, dry, appropriate color, no rash Neuro: speech clear, oriented x 3, normal affect, responds appropriately to questions. Course - Vital Signs Vital signs: Temp Pulse Resp BP Pulse Ox 98.0 F 102 H 18 121/88 H 96 02/19/17 02:50 02/19/17 02:50 02/19/17 02:50 02/19/17 02:50 02/19/17 02:50 - Transfer of Care Notes: 02/19/17 03:31 Patient did eventually pass a small kidney stone through his urethra. We did see the stone. Patient is feeling improved will be discharged home. He is strongly encouraged follow-up with his urologist in the morning. Patient agrees with plan will be discharged home. Dictation of this chart was performed using voice recognition software; therefore, there may be some unintended grammatical errors. Discharge - Discharge Clinical Impression: Kidney stone Condition: Good Disposition: HOME, SELF-CARE Additional Instructions: Please call your urologist in the morning to make a close follow-up appointment. Return to the ER if you have fevers, intractable vomiting, or intractable pain.
[2017-02-19] MEDS ORDERED: HYDROMORPHONE HCL INJ/PF 2 MG/ML AMPULE IV ONE (02:48)
[2017-02-19] MEDS ORDERED: METOCLOPRAMIDE HCL INJ/PF 10 MG/2 ML SDV IV ONE (02:48)
[2017-02-19] MEDS ORDERED: NORMAL SALINE 1000 ML 1,000 ML IV ONE (02:49)
[2017-02-19 02:51] VITALS: BP 121/88
[2017-02-19] MEDS ORDERED: OXYCODONE HCL IR 5 MG TABLET PO ONE (03:28)
== END 2017-02-19 03:50 | disposition home or self-care (01) ==
LOC: ER 01:37
DX: N20.0 Calculus of kidney (principal); R11.2 Nausea with vomiting, unspecified; R10.9 Unspecified abdominal pain; G89.29 Other chronic pain
CPT/HCPCS: 96376; 99283; 96361; 96374; 96375; J3360; J3490 ×3; J2765; J1170; J7030

== ENCOUNTER 2017-02-20 21:08 | Emergency (ER) | payer MEDICAID ==
[2017-02-20] MEDS ORDERED: NORMAL SALINE 1000 ML 1,000 ML IV ONE (21:21)
[2017-02-20] MEDS ORDERED: HYDROMORPHONE HCL INJ/PF 2 MG/ML AMPULE IV ONE ×3 (21:23→23:56)
[2017-02-20] MEDS ORDERED: ONDANSETRON HCL INJ/PF 4 MG/2 ML SDV IV ONE (21:23)
--- NOTE | 2017-02-20 21:25 | ER Document Report ---
ED Medical Screen (RME) - General Chief Complaint: Flank Pain Stated Complaint: FLANK PAIN Mode of Arrival: Wheelchair Information source: Patient, Relative - Notes: Patient presents emergency department with bilateral flank pain. Patient also reports he has been having nausea vomiting diarrhea for the past 3 days. He reports he hasn't been able to voiding in 2 days I have greeted and performed a rapid initial assessment of this patient. A comprehensive ED assessment and evaluation of the patient, analysis of test results and completion of the medical decision making process will be conducted by additional ED providers. TRAVEL OUTSIDE OF THE [place] IN LAST 30 DAYS: No - Related Data Allergies/Adverse Reactions: fentanyl Adverse Reaction (Verified 02/18/17 21:35) trazodone [Trazodone] Adverse Reaction (Verified 02/18/17 21:35) Past Medical History - Social History Chew tobacco use (# tins/day): No Frequency of alcohol use: Rare Drug Abuse: None - Past Medical History Cardiac Medical History: Reports: Hx Hypercholesterolemia, Hx Hypertension Endocrine Medical History: Reports: Hx Diabetes Mellitus Type 2 Renal/ Medical History: Reports: Hx Kidney Stones - uric acid stones. Denies : Hx Peritoneal Dialysis GI Medical History: Reports: Hx Gastroesophageal Reflux Disease, Hx Hiatal Hernia Musculoskeltal Medical History: Reports Hx Musculoskeletal Trauma Traumatic Medical History: Reports: Hx Spine Fracture Past Surgical History: Reports: Hx Cholecystectomy, Hx Orthopedic Surgery - Neck fusion, chronic pain - Immunizations Hx Diphtheria, Pertussis, Tetanus Vaccination: Yes Physical Exam - Vital signs Vitals: Temp Pulse BP Pulse Ox 98.4 F 92 151/110 H 99 02/20/17 21:12 02/20/17 21:12 02/20/17 21:12 02/20/17 21:12 Course - Vital Signs Vital signs: Temp Pulse Resp BP Pulse Ox 98.4 F 92 151/110 H 99 02/20/17 21:12 02/20/17 21:12 02/20/17 21:12 02/20/17 21:12 - Laboratory Result Diagrams: 02/20/17 21:30 02/20/17 21:30
[2017-02-20 21:43] LABS: HEMATOCRIT 50.1 % (37.9-51.0); HEMOGLOBIN 16.9 g/dL (13.5-17.0); HGB HCT DIFFERENCE 0.6; MEAN CORPUSCULAR HEMOGLOBIN 30.6 pg (27.0-33.4); MEAN CORPUSCULAR HGB CONC 33.7 g/dL (32.0-36.0); MEAN CORPUSCULAR VOLUME 91 fl (80-97); RED BLOOD COUNT 5.51 10^6/uL (4.35-5.55); RED CELL DISTRIBUTION WIDTH 13.4 % (11.5-14.0); WHITE BLOOD COUNT 5.6 10^3/uL (4.0-10.5)
[2017-02-20 21:52] LABS: ALANINE AMINOTRANSFERASE 77 U/L (21-72); ALBUMIN 4.6 g/dL (3.5-5.0); ALKALINE PHOSPHATASE 66 U/L (38-126); ANION GAP 14 (5-19); ASPARTATE AMINO TRANSFERASE 47 U/L (17-59); BILIRUBIN,DIRECT 0.2 mg/dL (0.0-0.4); BILIRUBIN,TOTAL 0.4 mg/dL (0.2-1.3); BLOOD UREA NITROGEN 13 mg/dL (7-20); CALCIUM 9.6 mg/dL (8.4-10.2); CARBON DIOXIDE 25 mmol/L (22-30); CHLORIDE 103 mmol/L (98-107); CREATININE RESULT 0.82 mg/dL (0.52-1.25); GLUCOSE 122 mg/dL (75-110); POTASSIUM 4.2 mmol/L (3.6-5.0); SODIUM 142.3 mmol/L (137-145); TOTAL PROTEIN 7.4 g/dL (6.3-8.2)
[2017-02-20 22:07] LABS: BASOPHILS % (MANUAL) 0 % (0-2); EOSINOPHILS % (MANUAL) 1 % (0-6); LYMPHOCYTES % (MANUAL) 40 % (13-45); TOTAL CELLS COUNTED 100
[2017-02-20 22:09] LABS: RBC MORPHOLOGY COMMENT NORMO-CYTIC/CHROMIC; TOXIC GRANULATION SLIGHT; TOXIC VACUOLATION PRESENT
[2017-02-20] MEDS ORDERED: DIAZEPAM INJ 10 MG/2 ML DISP.SYRIN IV ONE (22:55)
[2017-02-20] MEDS ORDERED: METOCLOPRAMIDE HCL INJ/PF 10 MG/2 ML SDV IV ONE (22:56)
[2017-02-20] MEDS ORDERED: NORMAL SALINE 1000 ML 1,000 ML IV PRN ×2 (22:56→22:57)
--- NOTE | 2017-02-20 22:57 | ER Document Report ---
ED GI/ - General Chief Complaint: Flank Pain Stated Complaint: FLANK PAIN Time seen by provider: 22:57 Mode of Arrival: Wheelchair Information source: Patient TRAVEL OUTSIDE OF THE [place] IN LAST 30 DAYS: No - HPI Patient complains to provider of: Diarrhea, Flank pain, Vomiting Onset: Other - 3 days Timing/Duration: Persistent Quality of pain: Achy, Cramping, Pressure, Sharp Severity at maximum: Severe Severity in ED: Moderate Pain Level: 4 Location: Left flank, Right flank Associated symptoms: Nausea, Vomiting Exacerbated by: Denies Relieved by: Denies Similar symptoms previously: Yes Recently seen / treated by doctor: Yes Notes: 02/21/17 02:03 Patient is a 46-year-old male who is well-known to this emergency room for presentations regarding kidney stones on multiple occasions, this evening patient presents for bilateral flank pain consistent with kidney stones, as well as nausea, vomiting and diarrhea that's been going on for the past 3 days, he states she's had decreased urination over the past 2 days, and no by mouth intake over the past 2 days due to his vomiting and diarrhea, states anytime he eats or drinks something it "goes right through me", he tried taking Phenergan at home with no resolution of symptoms, has also been taking Pepto-Bismol throughout the day - Related Data Allergies/Adverse Reactions: fentanyl Adverse Reaction (Verified 02/18/17 21:35) trazodone [Trazodone] Adverse Reaction (Verified 02/18/17 21:35) Past Medical History - General Information source: Patient, Relative - - Social History Smoking Status: Current Every Day Smoker Chew tobacco use (# tins/day): No Frequency of alcohol use: Rare Drug Abuse: None Family History: None Patient has suicidal ideation: No Patient has homicidal ideation: No - Past Medical History Cardiac Medical History: Reports: Hx Hypercholesterolemia, Hx Hypertension Endocrine Medical History: Reports: Hx Diabetes Mellitus Type 2 Renal/ Medical History: Reports: Hx Kidney Stones - uric acid stones. Denies : Hx Peritoneal Dialysis GI Medical History: Reports: Hx Gastroesophageal Reflux Disease, Hx Hiatal Hernia Musculoskeltal Medical History: Reports Hx Musculoskeletal Trauma Traumatic Medical History: Reports: Hx Spine Fracture Past Surgical History: Reports: Hx Cholecystectomy, Hx Orthopedic Surgery - Neck fusion, chronic pain - Immunizations Hx Diphtheria, Pertussis, Tetanus Vaccination: Yes Review of Systems - Review of Systems Constitutional: No symptoms reported EENT: No symptoms reported Cardiovascular: No symptoms reported Respiratory: No symptoms reported Gastrointestinal: See HPI Genitourinary: See HPI Male Genitourinary: No symptoms reported Musculoskeletal: No symptoms reported Skin: No symptoms reported Hematologic/Lymphatic: No symptoms reported Neurological/Psychological: No symptoms reported -: Yes All other systems reviewed and negative Physical Exam - Vital signs Vitals: Temp Pulse BP Pulse Ox 98.4 F 92 151/110 H 99 02/20/17 21:12 02/20/17 21:12 02/20/17 21:12 02/20/17 21:12 Interpretation: Hypertensive - General General appearance: Alert In distress: Mild - Appears in significant pain, actively vomiting - HEENT Head: Normocephalic, Atraumatic Eyes: Normal Conjunctiva: Normal Extraocular movements intact: Yes Eyelashes: Normal Pupils: PERRL - Respiratory Respiratory status: No respiratory distress Chest status: Nontender Breath sounds: Normal Chest palpation: Normal - Cardiovascular Rhythm: Regular Heart sounds: Normal auscultation Murmur: No - Abdominal Inspection: Normal Distension: No distension Bowel sounds: Normal Tenderness: Nontender Organomegaly: No organomegaly - Back Back: Normal, Nontender - Extremities General upper extremity: Normal inspection, Nontender, Normal color, Normal ROM , Normal temperature General lower extremity: Normal inspection, Nontender, Normal color, Normal ROM , Normal temperature, Normal weight bearing. No: Nathaniel's sign - Neurological Neuro grossly intact: Yes Cognition: Normal Orientation: AAOx4 [place] Coma Scale Eye Opening: Spontaneous [place] Coma Scale Verbal: Oriented [place] Coma Scale Motor: Obeys Commands [place] Coma Scale Total: 15 Speech: Normal Motor strength normal: LUE, RUE, LLE, RLE Sensory: Normal - Psychological Associated symptoms: Normal affect, Normal mood - Skin Skin Temperature: Warm Skin Moisture: Diaphoretic Skin Color: Normal Course - Re-evaluation Re-evalutation: 02/21/17 01:46 Patient reports feeling much better, he is tolerating by mouth intake, he past 2 kidney stones during the course of stay in the emergency room, he will be discharged with Zofran dose pack to go and information for follow-up, advised to return if symptoms worsen, lab findings were discussed with patient and spouse at bedside, patient acknowledges understanding and agreement with this plan - Vital Signs Vital signs: Temp Pulse Resp BP Pulse Ox 98.4 F 92 151/110 H 99 02/20/17 21:12 02/20/17 21:12 02/20/17 21:12 02/20/17 21:12 - Laboratory Result Diagrams: 02/20/17 21:30 02/20/17 21:30 Laboratory results interpreted by me: 02/20/17 02/20/17 02/20/17 21:30 21:30 23:20 Monocytes % (Manual) 14 H Glucose 122 H ALT 77 H Urine Protein >=500 H Urine Blood LARGE H Discharge - Discharge Clinical Impression: Flank pain, Kidney stone, Nausea vomiting and diarrhea Condition: Stable Disposition: HOME, SELF-CARE Instructions: Antinausea Medication ([facility]), Diarrhea, Nonspecific ([facility]), Vomiting ([facility]), Viral Syndrome ([facility]), Kidney Stone ([facility]) Additional Instructions: Follow up with your primary care provider in one to 2 days. Return to the emergency room immediately if symptoms worsen or any additional concerns.
[2017-02-20 23:56] LABS: APPEARANCE,URINE CLOUDY; BILIRUBIN,URINE NEGATIVE (NEGATIVE); GLUCOSE, URINE NEGATIVE (NEGATIVE); KETONES,URINE NEGATIVE (NEGATIVE); LEUKOCYTE ESTERASE,URINE NEGATIVE (NEGATIVE); NITRITE,URINE NEGATIVE (NEGATIVE); PROTEIN,URINE >=500 mg/dL (NEGATIVE); URINE SPECIFIC GRAVITY 1.034; UROBILINOGEN,URINE NEGATIVE mg/dL (<2.0)
[2017-02-21] MEDS ORDERED: METOCLOPRAMIDE HCL INJ/PF 10 MG/2 ML SDV IV ONE (00:49)
[2017-02-21] MEDS ORDERED: TAMSULOSIN HCL 0.4 MG CAP.SR.24H PO ONE (00:49)
[2017-02-21] MEDS ORDERED: DIPHENHYDRAMINE HCL 50 MG/ML VIAL IV ONE (00:49)
[2017-02-21] MEDS ORDERED: DIAZEPAM INJ 10 MG/2 ML DISP.SYRIN IV ONE (00:49)
[2017-02-21] MEDS ORDERED: LIDOCAINE 2% URO-JET 5 ML KIT MM ONE (00:49)
[2017-02-21] MEDS ORDERED: HYDROMORPHONE HCL INJ/PF 2 MG/ML AMPULE IV ONE (01:46)
[2017-02-21] MEDS ORDERED: ONDANSETRON ODT 4 MG TAB (6 TAB/DSPK) PO PRN (01:46)
[2017-02-21] MEDS ORDERED: ONDANSETRON HCL INJ/PF 4 MG/2 ML SDV IV ONE (01:46)
[2017-02-21 02:12] VITALS: BP 143/93
== END 2017-02-21 02:12 | disposition home or self-care (01) ==
LOC: ER 21:08
DX: N20.0 Calculus of kidney (principal); R11.2 Nausea with vomiting, unspecified; R10.9 Unspecified abdominal pain; R19.7 Diarrhea, unspecified
CPT/HCPCS: 96376; 99284; 96361; 96374; 96375; 36415; 87045; 89055; 87205; 85025; 82272; 80053; 81001; 87493 ×2; J3360 ×2; J1200; J2765 ×2; J1170 ×2; J2405; J7030

== ENCOUNTER 2017-02-24 22:23 | Emergency (ER) | payer MEDICAID ==
[2017-02-24 22:49] VITALS: BP 150/105
--- NOTE | 2017-02-24 23:12 | ER Document Report ---
ED GI/ - General Time seen by provider: 23:12 Mode of Arrival: Ambulatory Information source: Patient TRAVEL OUTSIDE OF THE U.S. IN LAST 30 DAYS: No - HPI Onset: Other - see HPI note <ARCHANA OCAMPO - Last Filed: 02/25/17 03:38> <CELESTINO MCKEON - Last Filed: 02/26/17 05:09> - General Stated Complaint: POSSIBLE KIDNEY STONES Notes: Patient is a 46-year-old male presenting to the emergency department for possible kidney stones. Patient has been evaluated for this multiple times in this emergency department. Each time. Patient comes to this emergency department to be evaluated for his uric acid kidney stones, patient states that he has an appointment soon with his urologist. Patient has not followed up with an urologist even though he has been told to do so by multiple emergency department physicians. Patient states that he has an appointment Wednesday with a [place] [facility]. Patient states he is allergic to fentanyl and trazodone. ( ARCHANA OCAMPO) - Related Data Allergies/Adverse Reactions: fentanyl Adverse Reaction (Verified 02/18/17 21:35) trazodone [Trazodone] Adverse Reaction (Verified 02/18/17 21:35) Past Medical History - General Information source: Patient - Social History Smoking Status: Unknown if Ever Smoked Family History: None - Past Medical History Cardiac Medical History: Reports: Hx Hypercholesterolemia, Hx Hypertension Endocrine Medical History: Reports: Hx Diabetes Mellitus Type 2 Renal/ Medical History: Reports: Hx Kidney Stones - uric acid stones GI Medical History: Reports: Hx Gastroesophageal Reflux Disease, Hx Hiatal Hernia Musculoskeltal Medical History: Reports Hx Musculoskeletal Trauma Traumatic Medical History: Reports: Hx Spine Fracture Past Surgical History: Reports: Hx Cholecystectomy, Hx Orthopedic Surgery - Neck fusion, chronic pain - Immunizations Hx Diphtheria, Pertussis, Tetanus Vaccination: Yes <ARCHANA OCAMPO - Last Filed: 02/25/17 03:38> Review of Systems - Review of Systems Constitutional: No symptoms reported EENT: No symptoms reported Cardiovascular: No symptoms reported Respiratory: No symptoms reported Gastrointestinal: No symptoms reported Genitourinary: See HPI Male Genitourinary: No symptoms reported Musculoskeletal: No symptoms reported Skin: No symptoms reported Hematologic/Lymphatic: No symptoms reported Neurological/Psychological: No symptoms reported -: Yes All other systems reviewed and negative <ARCHANA OCAMPO - Last Filed: 02/25/17 03:38> Physical Exam - Vital signs Interpretation: Tachycardic - General General appearance: Alert, Other - appears to be dramatically crying out in pain , leaning over the bed In distress: Mild - HEENT Head: Normocephalic, Atraumatic Eyes: Normal Pupils: PERRL Mucous membranes: Moist - Respiratory Respiratory status: No respiratory distress Chest status: Nontender Breath sounds: Normal Chest palpation: Normal - Cardiovascular Rhythm: Regular Heart sounds: Normal auscultation Murmur: No - Abdominal Inspection: Normal Distension: No distension Bowel sounds: Normal Tenderness: Nontender Organomegaly: No organomegaly - Back Back: Normal, Nontender - Extremities General upper extremity: Normal inspection, Normal ROM, Normal strength General lower extremity: Normal inspection, Normal ROM, Normal strength - Neurological Neuro grossly intact: Yes Cognition: Normal Orientation: AAOx4 Joyce Coma Scale Eye Opening: Spontaneous Joyce Coma Scale Verbal: Oriented [place] Coma Scale Motor: Obeys Commands Joyce Coma Scale Total: 15 Speech: Normal Sensory: Normal - Psychological Associated symptoms: Normal affect, Normal mood - Skin Skin Temperature: Warm Skin Moisture: Moist <ARCHANA OCAMPO - Last Filed: 02/25/17 03:38> <CELESTINO MCKEON - Last Filed: 02/26/17 05:09> - Vital signs Vitals: Temp Pulse Resp BP Pulse Ox 98.2 F 128 H 22 H 150/105 H 96 02/24/17 22:48 02/24/17 22:48 02/24/17 22:48 02/24/17 22:48 02/24/17 22:48 Course - Laboratory Result Diagrams: 02/24/17 23:51 <ARCHANA OCAMPO - Last Filed: 02/25/17 03:38> - Laboratory Result Diagrams: 02/24/17 23:51 <CELESTINO MCKEON - Last Filed: 02/26/17 05:09> - Re-evaluation Re-evalutation: 02/26/17 05:03 patient seen and evaluated with scribe who was present only for documentation. I did full history, physical, evaluation and disposition patient with multiple recurrent ed visits history chronic pain with history of kidney stones. multiple missed follow up appointments with urology for continuity of care. receiving narcotics from multiple providers also during times he sees a chronic pain specialist. narcotic report shows multiple visits and prescriptions throughout the state. on exam nontoxic no acute emergent medical condition. refused straight cath after he stated he couldnt pee. ct scan negative for pathology. when explained that we dont treat chronic pain in ed especially in the setting of two numerous to account visits, no follow up with specialist, and pain management involved, the patient eloped (CELESTINO MCKEON) - Vital Signs Vital signs: Temp Pulse Resp BP Pulse Ox 98.2 F 128 H 22 H 150/105 H 96 02/24/17 22:48 02/24/17 22:48 02/24/17 22:48 02/24/17 22:48 02/24/17 22:48 - Laboratory Laboratory results interpreted by ny: 02/24/17 23:51 Glucose 136 H ALT 83 H Discharge <ARCHANA OCAMPO - Last Filed: 02/25/17 03:38> <CELESTINO MCKEON - Last Filed: 02/26/17 05:09> - Discharge Clinical Impression: narcotic seeking behavior, History of kidney stones Condition: Stable Disposition: ELOPED Scribe Documentation - Scribe Written by Scribe:: Archana Ocampo 02/25/17 3:30 acting as scribe for :: Dheeraj <ARCHANA OCAMPO - Last Filed: 02/25/17 03:38>
[2017-02-25 00:18] LABS: ALANINE AMINOTRANSFERASE 83 U/L (21-72); ALBUMIN 4.8 g/dL (3.5-5.0); ALKALINE PHOSPHATASE 68 U/L (38-126); ANION GAP 15 (5-19); ASPARTATE AMINO TRANSFERASE 40 U/L (17-59); BILIRUBIN,DIRECT 0.2 mg/dL (0.0-0.4); BILIRUBIN,TOTAL 0.5 mg/dL (0.2-1.3); BLOOD UREA NITROGEN 12 mg/dL (7-20); CALCIUM 9.8 mg/dL (8.4-10.2); CARBON DIOXIDE 26 mmol/L (22-30); CHLORIDE 99 mmol/L (98-107); CREATININE RESULT 0.89 mg/dL (0.52-1.25); GLUCOSE 136 mg/dL (75-110); SODIUM 140.2 mmol/L (137-145); TOTAL PROTEIN 7.5 g/dL (6.3-8.2)
== END 2017-02-24 23:57 | disposition left against medical advice (07) ==
LOC: ER 22:23
DX: G89.29 Other chronic pain (principal); Z76.5 Malingerer [conscious simulation]; Z87.442 Personal history of urinary calculi; R00.0 Tachycardia, unspecified; E11.9 Type 2 diabetes mellitus without complications; I10 Essential (primary) hypertension; Z88.5 Allergy status to narcotic agent; Z88.8 Allergy status to other drugs, medicaments and biological substances; Z53.20 Procedure and treatment not carried out because of patient's decision for unspecified reasons
CPT/HCPCS: 36415; 76380; 80053; 99281

== ENCOUNTER 2017-03-05 02:35 | Emergency (ER) | payer MEDICAID ==
[2017-03-05] MEDS ORDERED: DIPHENHYDRAMINE HCL 50 MG/ML VIAL IV ONE (03:23)
[2017-03-05] MEDS ORDERED: METOCLOPRAMIDE HCL INJ/PF 10 MG/2 ML SDV IV ONE (03:23)
[2017-03-05] MEDS ORDERED: KETOROLAC TROMETHAMINE INJ/PF 30 MG/1 ML SDV IV ONE (03:24)
[2017-03-05] MEDS ORDERED: NORMAL SALINE 1000 ML 1,000 ML IV ONE (03:25)
--- NOTE | 2017-03-05 03:57 | ER Document Report ---
ED General - General Chief Complaint: Possible Kidney Stone Stated Complaint: POSSIBLE KIDNEY STONE Notes: Patient is a 47 year old male who presents with complaint of pain in the right flank. He also has nausea. Some vomiting. He has history of uric acid stones. He's been seen here several times in the past. He has a history of being seen at [facility] for urethral ablation due to urethral strictures. Denies any fevers. He does have an appointment with his urologist at [facility] in [place] on Wednesday for possible stent placement. He has no other complaints at this time. TRAVEL OUTSIDE OF THE U.S. IN LAST 30 DAYS: No - Related Data Allergies/Adverse Reactions: fentanyl Adverse Reaction (Verified 03/05/17 02:41) trazodone [Trazodone] Adverse Reaction (Verified 03/05/17 02:41) Past Medical History - Social History Smoking Status: Never Smoker Frequency of alcohol use: None Drug Abuse: None Family History: None Patient has suicidal ideation: No Patient has homicidal ideation: No - Past Medical History Cardiac Medical History: Reports: Hx Hypercholesterolemia, Hx Hypertension Endocrine Medical History: Reports: Hx Diabetes Mellitus Type 2 Renal/ Medical History: Reports: Hx Kidney Stones - uric acid stones. Denies : Hx Peritoneal Dialysis GI Medical History: Reports: Hx Gastroesophageal Reflux Disease, Hx Hiatal Hernia Musculoskeltal Medical History: Reports Hx Musculoskeletal Trauma Traumatic Medical History: Reports: Hx Spine Fracture Past Surgical History: Reports: Hx Cholecystectomy, Hx Orthopedic Surgery - Neck fusion, chronic pain - Immunizations Hx Diphtheria, Pertussis, Tetanus Vaccination: Yes Review of Systems - Review of Systems Notes: My Normal Review Basic REVIEW OF SYSTEMS: CONSTITUTIONAL : Denies fever, chills, or sweats. Denies recent illness. RESPIRATORY: Denies cough, cold, or chest congestion. Denies shortness of breath, difficulty breathing, or wheezing. GASTROINTESTINAL: Denies abdominal pain. Denies nausea, vomiting, or diarrhea. Denies constipation. Last BM: GENITOURINARY: History of kidney stones and right-sided flank pain. MUSCULOSKELETAL: Denies neck or back pain or joint pain or swelling. SKIN: Denies rash or skin lesions. NEUROLOGICAL: Denies altered mental status or loss of consciousness. Denies headache. Denies weakness or paralysis or loss of use of either side. Denies problems with gait or speech. Denies sensory or motor loss. ALL OTHER SYSTEMS REVIEWED AND NEGATIVE. Physical Exam - Vital signs Vitals: Temp Pulse Resp BP Pulse Ox 97.5 F 98 20 163/107 H 96 03/05/17 02:36 03/05/17 02:36 03/05/17 02:36 03/05/17 02:36 03/05/17 02:36 - Notes Notes: General Appearance: Well nourished, alert, cooperative, no acute distress, moderate obvious discomfort. Vitals: reviewed, See vital signs table. Head: no swelling or tenderness to the head Eyes: PERRL, EOMI, Conjuctiva clear Mouth: No decreasd moisture Lungs: No wheezing, No rales, No rhonci, No accessory muscle use, good air exchange bilaterally. Heart: Normal rate, Regular rythm, No murmur, no rub Abdomen: Normal BS, soft, No rigidity, some pain over right side of abdomen, No guarding, no rebound, no abdominal masses, no organomegalyma. Skin: warm, dry, appropriate color, no rash Neuro: speech clear, oriented x 3, normal affect, responds appropriately to questions. Course - Re-evaluation Re-evalutation: 03/05/17 03:54 I spoke on the phone with Dr. Kumar, urologist covering at [facility]. He looked up the patient in their database and cannot see any evidence of him being seen as urology patient there. This does cause some concern for me to him as if this is true than the patient has been untruthful about procedures done and visits at [facility] for urology or the urologist has made a mistake in the way he looks up the records. At this time we'll obtain a renal ultrasound. I did have our special education secretary call medical records at [facility] and they said they do have some records for him. They're unsure if they're urology records. They are going to send us these records. Hopefully this will give us more information as to whether or not patient is actually been seen there by urology. I did review the patient's prescription medical history being that at his last visit Dr. Esqueda documented that the patient has multiple prescriptions from multiple different providers. My review of his records shows the patient does have 3 different providers that write for his narcotics. He does not get his prescriptions more than once every month. They are the same 3 providers which are most likely associated with the same pain management clinic. I do not see any discrepancy or problem with his [place] prescription database report. 03/05/17 07:21 - Vital Signs Vital signs: Temp Pulse Resp BP Pulse Ox 98.0 F 88 16 125/93 H 97 03/05/17 05:15 03/05/17 05:15 03/05/17 05:15 03/05/17 05:15 03/05/17 05:15 - Laboratory Result Diagrams: 03/05/17 03:43 Laboratory results interpreted by me: 03/05/17 03/05/17 03:43 03:43 BUN 22 H Glucose 164 H Urine Protein 100 H Urine Blood LARGE H - Transfer of Care Notes: 03/05/17 04:56 We did receive medical records from [facility] from 2015. The only urology complaint was that he was seen for was when he went to the ER there for flank pain and possible kidney stone. There is nothing from urology clinic. He was also seen for his neck as well. I did callback the medical records personally just to again clarify that the patient has not been there at all. She looked through all of the year 2016 through all the data bases. I had her also specifically to place close attention to anything from urology. She says that the only thing she has is from neurosurgery and the ER. There is absolutely no urology records for [facility]. Patient also has no hydronephrosis on renal ultrasound. I sat down and explained to the patient my concerns. My concern is that he's been seen here multiple times and has required increasing dosages of pain medicine and is requesting increasing doses of ketamine and pain medicine and comes multiple times a week. Also I do not understand why he only comes at nighttime when certain physicians are working, such as me, who have helped him several times in the past with this and have been willing to give him largre dosages of pain medicine. It does not make sense that his kidney stones typically only occur at night. Also my concern is that he's had several imaging studies over last year. They never show hydronephrosis. With the amount of vomiting and pain that he typically has going into his flank I suspect that he should sometimes have some hydronephrosis and he never does. I do not expect to see stones on the CT scan itself because they are uric acid stones; however, I do expect to see some hydronephrosis which we do not. I informed the patient that the ultimate problem is that he's been coming here saying that he is being treated by a specialist [facility] and has had ablation therapy to his urethra and surgery to his urethra due to his recurrent stones. The fact that [facility] tells me that they have no records of this is very concerning to me. Patient says he understands. He says that he will go to [facility] and retrieve the records himself to prove to us that he has been seen there. I informed him that would be of great help to assess and will help rebuild some trust with what has been ongoing. He does have an appointment this Wednesday with the urologist in [place]. I informed him my other concern was that the last several times I have seen him he has told me that he is going to see an urologist the next day. He has not seen any new urologist despite multiple times telling me that he has an appointment. He tells me many reasons for this such as he was exhausted from the night before or that the neurologist has since left and the clinic has shut down. At this time patient has no hydronephrosis, his kidney function is normal, he has no signs infection on his UA. I feel he is safe to be discharged home and he has no evidence of a life- threatening condition on my medical screening exam and workup. Patient will be discharged home and is encouraged to return to the ER if he has intractable vomiting or fevers. At the end of the stay patient did call me to the bathroom because he urinated into the toilet and there was some blood in the toilet. He pointed to a white speck in the middle of the blood and said that was the stone that he just urinated out. It is impossible for me to tell if this was actually a stone that was sitting in the bottom of the toilet with blood around it. I informed patient that we would stay with original plan to treat him with nonnarcotic medications and nausea medications. Patient shows understanding of this. He requests to be discharged home and he would follow-up with [facility] and obtain his records so we can check out what has been done at [facility] and shows that he was indeed seen there as he says. Dictation of this chart was performed using voice recognition software; therefore, there may be some unintended grammatical errors. 03/05/17 07:22 Discharge - Discharge Clinical Impression: Flank pain Condition: Good Disposition: HOME, SELF-CARE Additional Instructions: Please return to the ER if you have fevers, intractable vomiting, or feel worse. Please follow up with your urologist in [facility] on Wednesday as scheduled.
[2017-03-05 04:08] LABS: APPEARANCE,URINE CLOUDY; BILIRUBIN,URINE NEGATIVE (NEGATIVE); GLUCOSE, URINE NEGATIVE (NEGATIVE); KETONES,URINE NEGATIVE (NEGATIVE); LEUKOCYTE ESTERASE,URINE NEGATIVE (NEGATIVE); NITRITE,URINE NEGATIVE (NEGATIVE); PROTEIN,URINE 100 mg/dL (NEGATIVE); URINE SPECIFIC GRAVITY 1.014; UROBILINOGEN,URINE NEGATIVE mg/dL (<2.0)
[2017-03-05 04:12] LABS: ANION GAP 14 (5-19); BLOOD UREA NITROGEN 22 mg/dL (7-20); CALCIUM 9.1 mg/dL (8.4-10.2); CARBON DIOXIDE 24 mmol/L (22-30); CHLORIDE 100 mmol/L (98-107); CREATININE RESULT 0.94 mg/dL (0.52-1.25); GLUCOSE 164 mg/dL (75-110); POTASSIUM 4.5 mmol/L (3.6-5.0); SODIUM 137.5 mmol/L (137-145)
[2017-03-05] MEDS ORDERED: DIAZEPAM INJ 10 MG/2 ML DISP.SYRIN IV ONE (04:53)
[2017-03-05] MEDS ORDERED: TAMSULOSIN HCL 0.4 MG CAP.SR.24H PO ONE (04:53)
[2017-03-05 05:18] VITALS: BP 125/93
== END 2017-03-05 05:20 | disposition home or self-care (01) ==
LOC: ER 02:35
DX: R10.9 Unspecified abdominal pain (principal); R11.2 Nausea with vomiting, unspecified; E78.00 Pure hypercholesterolemia, unspecified; I11.0 Hypertensive heart disease with heart failure; E11.9 Type 2 diabetes mellitus without complications; K21.9 Gastro-esophageal reflux disease without esophagitis; Z87.442 Personal history of urinary calculi; Z90.49 Acquired absence of other specified parts of digestive tract; Z98.1 Arthrodesis status
CPT/HCPCS: 99284; 96361; 96374; 96375; 36415; 80048; 81001; 76770; J3360; J1200; J1885; J2765; J3490; J7030

== ENCOUNTER 2017-06-30 11:56 | Emergency (ER) | payer MEDICAID ==
[2017-06-30] MEDS ORDERED: KETOROLAC TROMETHAMINE INJ/PF 30 MG/1 ML SDV IV ONE (12:33)
--- NOTE | 2017-06-30 12:33 | ER Document Report ---
ED Fall - General Stated Complaint: BACK PAIN Time Seen by Provider: 06/30/17 12:03 Mode of Arrival: Stretcher Information source: Patient TRAVEL OUTSIDE OF THE U.S. IN LAST 30 DAYS: No - HPI Patient complains to provider of: Low back pain Occurred: This morning Where: Home Context: Slipped Location of injury/pain: Back Quality of pain: Achy Severity: Severe Pain Level: 5 Notes: Patient is a 47-year-old male who presents to the emergency room via EMS for low back pain, states he was in the bathroom this morning when he slipped and fell on the floor, causing an acute spasming type pain to his low back, patient reports a history of for ruptured disks in his low back previously, states he had an MRI done at [facility] on June 18, patient denies any bowel or bladder dysfunction, he does report a chronic tingling sensation down both of his legs which seems to be slightly worse than usual, states he feels like he broke his tailbone when he fell, patient has a long history of chronic back problems, has been seen in this emergency room for possible kidney stones and multiple times in the past, requiring increasing doses of pain medication during his visits, states he currently sees a pain management physician who prescribed some oxycodone 20 mg, and recently stopped prescribing him Butrans patches because it was not showing up in his urine, patient reports that he recently saw his primary care provider on 05/26/2017, who is assisting him with getting a referral to see a neurosurgeon for his chronic neck and back pain - Related data Allergies/Adverse Reactions: fentanyl Adverse Reaction (Verified 03/05/17 02:41) trazodone [Trazodone] Adverse Reaction (Verified 03/05/17 02:41) Past Medical History - General Information source: Patient - Social History Smoking Status: Former Smoker Family History: None - Past Medical History Cardiac Medical History: Reports: Hx Hypercholesterolemia, Hx Hypertension Endocrine Medical History: Reports: Hx Diabetes Mellitus Type 2 Renal/ Medical History: Reports: Hx Kidney Stones - uric acid stones. Denies : Hx Peritoneal Dialysis GI Medical History: Reports: Hx Gastroesophageal Reflux Disease, Hx Hiatal Hernia Musculoskeltal Medical History: Reports Hx Musculoskeletal Trauma Traumatic Medical History: Reports: Hx Spine Fracture Past Surgical History: Reports: Hx Cholecystectomy, Hx Orthopedic Surgery - Neck fusion, chronic pain - Immunizations Hx Diphtheria, Pertussis, Tetanus Vaccination: Yes Review of Systems - Review of Systems Constitutional: No symptoms reported EENT: No symptoms reported Cardiovascular: No symptoms reported Respiratory: No symptoms reported Gastrointestinal: No symptoms reported Genitourinary: No symptoms reported Male Genitourinary: No symptoms reported Musculoskeletal: Back pain Skin: No symptoms reported Hematologic/Lymphatic: No symptoms reported Neurological/Psychological: No symptoms reported -: Yes All other systems reviewed and negative Physical Exam - Vital signs Vitals: Temp Pulse Resp BP Pulse Ox 97.5 F 73 16 127/76 H 95 06/30/17 15:35 06/30/17 15:35 06/30/17 15:35 06/30/17 15:35 06/30/17 15:35 Interpretation: Normal - General General appearance: Alert In distress: Mild - Appears in pain - HEENT Head: Normocephalic, Atraumatic Eyes: Normal Pupils: PERRL - Respiratory Respiratory status: No respiratory distress Chest status: Nontender Breath sounds: Normal Chest palpation: Normal - Cardiovascular Rhythm: Regular Heart sounds: Normal auscultation Murmur: No - Abdominal Inspection: Normal Distension: No distension Bowel sounds: Normal Tenderness: Nontender Organomegaly: No organomegaly - Back Back: Tender - Tender to palpate in lumbar paraspinal musculature bilaterally, no deformity or step-off - Extremities General upper extremity: Normal inspection, Nontender, Normal color, Normal ROM , Normal temperature General lower extremity: Normal inspection, Nontender, Normal color, Normal ROM , Normal temperature, Normal weight bearing. No: Nathaniel's sign - Neurological Neuro grossly intact: Yes Cognition: Normal Orientation: AAOx4 [place] Coma Scale Eye Opening: Spontaneous Joyce Coma Scale Verbal: Oriented [place] Coma Scale Motor: Obeys Commands [place] Coma Scale Total: 15 Speech: Normal Motor strength normal: LUE, RUE, LLE, RLE Sensory: Normal - Psychological Associated symptoms: Normal affect, Normal mood - Skin Skin Temperature: Warm Skin Moisture: Dry Skin Color: Normal Course - Re-evaluation Re-evalutation: 06/30/17 18:55 Patient brought with him a disc of a lumbar spine MRI that was performed at [facility] on 05/23/2017, which shows some spinal canal stenosis but no evidence of any disc herniation or bulging, he also brought along with him a report from [facility] for a MRI of the lumbar spine that was performed on 05/19/2017 which shows multilevel disc herniation with nerve impingement, regardless imaging today does not show any signs of acute injury, patient was advised that he would not be provided with additional opioid narcotics in the emergency room today, he was given 1 single dose of Valium for a muscle relaxer, IV steroids and advised to follow-up with his primary care provider and his neurosurgeon in the next 1-2 days or return if symptoms worsen, patient acknowledges understanding and agreement with this plan - Vital Signs Vital signs: Temp Pulse Resp BP Pulse Ox 97.5 F 73 16 127/76 H 95 06/30/17 15:35 06/30/17 15:35 06/30/17 15:35 06/30/17 15:35 06/30/17 15:35 - Diagnostic Test Radiology reviewed: Image reviewed, Reports reviewed Discharge - Discharge Clinical Impression: Lumbar strain Qualifiers: Encounter type: initial encounter Qualified Code(s): S39.012A - Strain of muscle, fascia and tendon of lower back, initial encounter Condition: Stable Disposition: HOME, SELF-CARE Instructions: Low Back Pain ([facility]) Additional Instructions: Follow up with your primary care provider in one to 2 days. Return to the emergency room immediately if symptoms worsen or any additional concerns.
--- NOTE | 2017-06-30 13:28 | RADIOLOGY REPORT (SQ) ---
EXAM DESCRIPTION: L SPINE WHOLE COMPLETED DATE/TIME: 06/30/2017 1:21 pm REASON FOR STUDY: fall COMPARISON: None. NUMBER OF VIEWS: Five views including obliques. TECHNIQUE: AP, lateral, oblique, and sacral radiographic images acquired of the lumbar spine. LIMITATIONS: None. FINDINGS: MINERALIZATION: Normal. SEGMENTATION: Normal. No transitional anatomy. ALIGNMENT: Normal. VERTEBRAE: Maintained height. No fracture or worrisome bone lesion. DISCS: Multilevel disc space narrowing with osteophytes. POSTERIOR ELEMENTS: Pedicles and facets are intact. No pars defect or posterior arch defects. Facet arthropathy is present. HARDWARE: None in the spine. PARASPINAL SOFT TISSUES: Normal. PELVIS: Intact as visualized. No fractures or worrisome bone lesions. SI joints intact. OTHER: Surgical clips noted in the right upper quadrant. IMPRESSION: MILD SPONDYLOSIS WITHOUT BONE LESION OR FRACTURE. TECHNICAL DOCUMENTATION: JOB ID: [id number] [employer]- All Rights Reserved
--- NOTE | 2017-06-30 13:29 | RADIOLOGY REPORT (SQ) ---
EXAM DESCRIPTION: PELVIS AP COMPLETED DATE/TIME: 06/30/2017 1:21 pm REASON FOR STUDY: fall COMPARISON: None. NUMBER OF VIEWS: One view TECHNIQUE: AP Pelvis LIMITATIONS: None. FINDINGS: MINERALIZATION: Normal. HIPS: No acute fracture or dislocation. No worrisome bone lesions. PELVIS AND SACRUM: No acute fracture or dislocation. No worrisome bone lesions. PUBIS AND ISCHIUM: No acute fracture. LOWER LUMBAR SPINE: No significant findings as visualized. SOFT TISSUES: No findings. OTHER: No other significant finding. IMPRESSION: No acute fracture or dislocation identified TECHNICAL DOCUMENTATION: JOB ID: [id number] [employer]- All Rights Reserved
[2017-06-30] MEDS ORDERED: METHYLPREDNISOLONE INJ 125 MG/2 ML SDV IV ONE (14:57)
[2017-06-30] MEDS ORDERED: DIPHENHYDRAMINE HCL 50 MG/ML VIAL IV ONE (14:57)
[2017-06-30] MEDS ORDERED: DIAZEPAM INJ 10 MG/2 ML DISP.SYRIN IV ONE (14:57)
[2017-06-30 15:37] VITALS: BP 127/76
== END 2017-06-30 15:41 | disposition home or self-care (01) ==
LOC: ER 11:56
DX: S39.012A Strain of muscle, fascia and tendon of lower back, initial encounter (principal); W01.0XXA Fall on same level from slipping, tripping and stumbling without subsequent striking against object, initial encounter; Y93.89 Activity, other specified; Y92.002 Bathroom of unspecified non-institutional (private) residence as the place of occurrence of the external cause; R20.2 Paresthesia of skin; I10 Essential (primary) hypertension; M48.06 Spinal stenosis, lumbar region; M51.26 Other intervertebral disc displacement, lumbar region; M54.2 Cervicalgia; G89.29 Other chronic pain; Z79.891 Long term (current) use of opiate analgesic; E11.9 Type 2 diabetes mellitus without complications; Z98.1 Arthrodesis status
CPT/HCPCS: 99283; 96374; 96375; 72110; 72170; J3360; J1200; J2930; J1885

== ENCOUNTER 2017-12-27 18:57 | Emergency (ER) | payer OTHER, MEDICAID ==
[2017-12-27] MEDS ORDERED: HYDROCODONE/ACETAMINOPHEN 5-325 MG TABLET PO ONE (20:35)
[2017-12-27] MEDS ORDERED: CYCLOBENZAPRINE HCL 10 MG TABLET PO ONE (21:32)
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
[2017-12-27] MEDS ORDERED: KETOROLAC TROMETHAMINE 60 MG/2 ML SDV IM ONE (21:51)
[2017-12-27 22:01] VITALS: BP 127/98
== END 2017-12-27 22:00 | disposition home or self-care (01) ==
LOC: ER 18:57
DX: M54.5 Low back pain (principal); M25.552 Pain in left hip; M54.9 Dorsalgia, unspecified; V87.7XXA Person injured in collision between other specified motor vehicles (traffic), initial encounter
CPT/HCPCS: 99284; 96372; 73502; 72131; J1885

== ENCOUNTER 2019-09-24 20:20 | Emergency (ER) | payer MEDICAID, OTHER ==
[2019-09-24] MEDS ORDERED: NORMAL SALINE 1000 ML 1,000 ML IV ONE ×2 (20:27→21:34)
--- NOTE | 2019-09-24 20:28 | ER Document Report ---
ED Medical Screen (RME) - General Stated Complaint: POSSIBLE ALLERGIC REACTION Time Seen by Provider: 09/24/19 20:26 Mode of Arrival: Ambulatory Information source: Patient Notes: Patient presents complaining of waking up at 530 this evening with muscle pains all over. Patient states that he did have some itching. Patient took Benadryl at home for his symptoms. Patient tachycardic in triage very anxious. I have greeted and performed a rapid initial assessment of this patient. A comprehensive ED assessment and evaluation of the patient, analysis of test results and completion of the medical decision making process will be conducted by additional ED providers. TRAVEL OUTSIDE OF THE [place] IN LAST 30 DAYS: No - Related Data Allergies/Adverse Reactions: fentanyl Adverse Reaction (Verified 12/27/17 19:00) trazodone [Trazodone] Adverse Reaction (Verified 12/27/17 19:00) Past Medical History - Past Medical History Cardiac Medical History: Reports: Hx Hypercholesterolemia, Hx Hypertension Endocrine Medical History: Reports: Hx Diabetes Mellitus Type 2 Renal/ Medical History: Reports: Hx Kidney Stones - uric acid stones. Denies: Hx Peritoneal Dialysis GI Medical History: Reports: Hx Gastroesophageal Reflux Disease, Hx Hiatal Hernia Musculoskeltal Medical History: Reports Hx Musculoskeletal Trauma Traumatic Medical History: Reports: Hx Spine Fracture Past Surgical History: Reports: Hx Cholecystectomy, Hx Orthopedic Surgery - Neck fusion, chronic pain - Immunizations Hx Diphtheria, Pertussis, Tetanus Vaccination: Yes Physical Exam - Cardiovascular Rhythm: Tachycardia Heart sounds: S1 appreciated, S2 appreciated Murmur: No
--- NOTE | 2019-09-24 20:34 | ER Document Report ---
ED General - General Stated Complaint: POSSIBLE ALLERGIC REACTION Time Seen by Provider: 09/24/19 20:26 Primary Care Provider: MERA RESTREPO PA-C [Primary Care Provider] - Follow up in 3-5 days Mode of Arrival: Ambulatory Notes: Patient is a 49-year-old male with chronic back pain that presents to the emergency department for chief complaint of rash and itching. Patient states that around noon he laid down for nap and woke up around 5 PM this evening in a rash, that is extremely itchy and causing a burning pain over his entire body. He cannot think of anything he was recently exposed to such as new medications, foods, or soaps or detergents. He states he was exposed to someone that was diagnosed with chickenpox recently, he states he did not have it as a child, but does report he had a remote chickenpox vaccine several years ago. He states he has been noticing a little small bumps that have been opening up and draining on his arms and chest and back. He states that his pain is a burning sensation he describes as a 6 out of 10 and itching all over that he cannot stand it. He has had associated nausea and vomiting due to the discomfort. He denies having any fevers, chills, night sweats. Denies any chest pain or shortness of breath. Past Medical History: Chronic back pain, hypertension, DM Past Surgical History: Rotator cuff surgery Social History: Denies tobacco use, denies alcohol or drug use. Family History: Reviewed and noncontributory for presenting illness Allergies: Reviewed, see documented allergy list. REVIEW OF SYSTEMS: Other than noted above, the 12 point review of systems was reviewed with the patient and were negative, all pertinent findings are included in the HPI. PHYSICAL EXAMINATION: Vital signs reviewed, nursing noted reviewed. GENERAL: Patient appears rather uncomfortable and in pain on exam, no acute respiratory distress HEAD: Atraumatic, normocephalic. EYES: Eyes appear normal, extraocular movements intact, sclera anicteric, conjunctiva are normal. PERRLA ENT: nares patent, oropharynx clear without exudates. Moist mucous membranes. NECK: Normal range of motion, supple without lymphadenopathy LUNGS: Breath sounds clear to auscultation bilaterally and equal. No wheezes rales or rhonchi. HEART: Heart rate tachycardic, regular rhythm, no audible murmur. ABDOMEN: Soft, obese, nontender, normoactive bowel sounds. No rebound, guarding, or rigidity. No masses appreciated. EXTREMITIES: Nontender, good range of motion, no pitting or edema. NEUROLOGICAL: No focal neurological deficits. Moves all extremities spontaneously Motor and sensory grossly intact on exam. PSYCH: Patient appears rather anxious, but answering questions appropriately. SKIN: Warm, Dry, normal turgor, patient noted to have a erythematous pustular rash on his upper extremities and abdomen and chest, that seem to be spreading to his lower extremities as well. TRAVEL OUTSIDE OF THE [place] IN LAST 30 DAYS: No - Related Data Allergies/Adverse Reactions: clindamycin Allergy (Verified 09/24/19 20:39) haloperidol [From Haldol] Allergy (Verified 09/24/19 20:39) fentanyl Adverse Reaction (Verified 12/27/17 19:00) trazodone [Trazodone] Adverse Reaction (Verified 12/27/17 19:00) Past Medical History - General Information source: Patient - Social History Smoking Status: Never Smoker Family History: None, Reviewed & Not Pertinent - Past Medical History Cardiac Medical History: Reports: Hx Hypercholesterolemia, Hx Hypertension Endocrine Medical History: Reports: Hx Diabetes Mellitus Type 2 Renal/ Medical History: Reports: Hx Kidney Stones - uric acid stones. Denies: Hx Peritoneal Dialysis GI Medical History: Reports: Hx Gastroesophageal Reflux Disease, Hx Hiatal Hernia Musculoskeletal Medical History: Reports Hx Musculoskeletal Trauma Traumatic Medical History: Reports: Hx Spine Fracture Past Surgical History: Reports: Hx Cholecystectomy, Hx Orthopedic Surgery - Neck fusion, chronic pain - Immunizations Hx Diphtheria, Pertussis, Tetanus Vaccination: Yes Physical Exam - Vital signs Vitals: Temp Pulse Resp BP Pulse Ox 98.2 F 137 H 24 H 131/90 H 95 09/24/19 20:36 09/24/19 20:36 09/24/19 20:36 09/24/19 20:36 09/24/19 20:36 Course - Re-evaluation Re-evalutation: Patient seen and examined vital signs reviewed. Laboratory data and/or imaging were ordered as appropriate for the patient's presenting symptoms and complaint, with consideration of any critical or life threatening conditions that may be associated with their obtained history and exam as noted above. Patient was treated with IV fluids, Solu-Medrol, had received Benadryl prior to ED arrival, was given IM epinephrine as well, for possible allergic reaction the patient was erythematous and itching all over. Patient was also given Dilaudid for pain. He states he did not take his home chronic pain medication prior to ED arrival. He was also given Valium for muscle spasming, which he takes at home. Results were reviewed when available and demonstrated only elevated lipase, patient was dry heaving and vomiting in the ED, he was not tender in his epigastrium, likely not pancreatitis, but from vomiting. Upon further evaluation, the patient started to have spreading of the rash, it did appear more more like a chickenpox rash, particular with his recent exposure, and history of not having chickenpox as a child. Patient's tachycardia came down after treating him for pain, and became more calm, he was given Zofran for nausea and vomiting he was feeling much better. He was still having itching, and after waiting he was given Benadryl IV, as it has been long enough since he is taking it at home. He was also started on p.o. acyclovir. The patient was re-evaluated and was stable, patient is an immune competent patient, will treat him with 7 days of p.o. acyclovir, 5 times daily and have him follow-up with his primary care physician, he was advised to use calamine lotion, and take his home pain medication if needed. He was advised if his symptoms are not improving, that he should return to the emergency department particular if he develops fever or confusion or severe headache. Evaluation was most consistent with chickenpox Results were discussed with the patient at this point, after careful consideration I feel that that patient can be discharged from the emergency department, the patient was educated treatments and reasons to return to the emergency department based on their presumed diagnosis as noted above, they were advised to followup with a primary care physician in 2-3 days. Patient was agreeable to plan of care. *Note is created using voice recognition software and may contain spelling, syntax or grammatical errors. Laboratory 09/24/19 09/24/19 09/24/19 20:41 20:41 20:41 WBC 9.9 RBC 5.64 H Hgb 17.8 H Hct 51.4 H MCV 91 MCH 31.5 MCHC 34.6 RDW 13.2 Plt Count 281 Lymph % (Auto) 36.1 [place] % (Auto) 9.1 Eos % (Auto) 5.5 Baso % (Auto) 1.4 Absolute Neuts (auto) 4.7 Absolute Lymphs (auto) 3.6 Absolute Monos (auto) 0.9 Absolute Eos (auto) 0.5 Absolute Basos (auto) 0.1 Seg Neutrophils % 47.9 Sodium 139.5 Potassium 4.7 Chloride 104 Carbon Dioxide 24 Anion Gap 12 BUN 20 Creatinine 1.13 Est GFR ( Amer) > 60 Est GFR (MDRD) Non-Af > 60 Glucose 286 H Calcium 9.3 Total Bilirubin 0.4 Direct Bilirubin 0.2 Neonat Total Bilirubin Not Reportable Neonat Direct Bilirubin Not Reportable Neonat Indirect Bili Not Reportable AST 82 H ALT 56 Alkaline Phosphatase 68 Total Protein 7.6 Albumin 4.5 Lipase 538.9 H Urine Color YELLOW Urine Appearance CLEAR Urine pH 5.0 Ur Specific [place] 1.029 Urine Protein 30 H Urine Glucose (UA) >=500 H Urine Ketones NEGATIVE Urine Blood NEGATIVE Urine Nitrite NEGATIVE Urine Bilirubin NEGATIVE Urine Urobilinogen NEGATIVE Ur Leukocyte Esterase NEGATIVE Urine WBC (Auto) 1 Urine RBC (Auto) 1 U Hyaline Cast (Auto) 1 Squamous Epi Cells Auto <1 Urine Mucus (Auto) RARE Urine Ascorbic Acid NEGATIVE Urine Opiates Screen Urine Methadone Screen Ur Barbiturates Screen Ur Phencyclidine Scrn Ur Amphetamines Screen U Benzodiazepines Scrn Urine Cocaine Screen U Marijuana (THC) Screen 09/24/19 20:41 WBC RBC Hgb Hct MCV MCH MCHC RDW Plt Count Lymph % (Auto) [place] % (Auto) Eos % (Auto) Baso % (Auto) Absolute Neuts (auto) Absolute Lymphs (auto) Absolute Monos (auto) Absolute Eos (auto) Absolute Basos (auto) Seg Neutrophils % Sodium Potassium Chloride Carbon Dioxide Anion Gap BUN Creatinine Est GFR ( Amer) Est GFR (MDRD) Non-Af Glucose Calcium Total Bilirubin Direct Bilirubin Neonat Total Bilirubin Neonat Direct Bilirubin Neonat Indirect Bili AST ALT Alkaline Phosphatase Total Protein Albumin Lipase Urine Color Urine Appearance Urine pH Ur Specific [place] Urine Protein Urine Glucose (UA) Urine Ketones Urine Blood Urine Nitrite Urine Bilirubin Urine Urobilinogen Ur Leukocyte Esterase Urine WBC (Auto) Urine RBC (Auto) U Hyaline Cast (Auto) Squamous Epi Cells Auto Urine Mucus (Auto) Urine Ascorbic Acid Urine Opiates Screen UNCONFIRMED POSITIVE Urine Methadone Screen NEGATIVE Ur Barbiturates Screen NEGATIVE Ur Phencyclidine Scrn NEGATIVE Ur Amphetamines Screen NEGATIVE U Benzodiazepines Scrn NEGATIVE Urine Cocaine Screen NEGATIVE U Marijuana (THC) Screen NEGATIVE - Vital Signs Vital signs: Temp Pulse Resp BP Pulse Ox 98.2 F 137 H 18 143/91 H 97 09/24/19 20:36 09/24/19 20:36 09/25/19 00:22 09/25/19 00:22 09/25/19 00:22 - Laboratory Result Diagrams: 09/24/19 20:41 09/24/19 20:41 Laboratory results interpreted by me: 09/24/19 09/24/19 09/24/19 20:41 20:41 20:41 RBC 5.64 H Hgb 17.8 H Hct 51.4 H Glucose 286 H AST 82 H Lipase 538.9 H Urine Protein 30 H Urine Glucose (UA) >=500 H Discharge - Discharge Clinical Impression: Chickenpox Qualifiers: Varicella complications: without complication Qualified Code(s): B01.9 - Varicella without complication Nausea and vomiting Qualifiers: Vomiting type: unspecified Vomiting Intractability: unspecified Qualified Code(s): R11.2 - Nausea with vomiting, unspecified Condition: Stable Disposition: HOME, SELF-CARE Instructions: Chicken Pox ([facility]) Additional Instructions: Please complete the entire course of antiviral medication as directed. Recommend calamine lotion to your skin to help dry out any lesions that pop up. You should improve with your symptoms over the next 24 to 48 hours. But continue taking the antiviral medications until its completed. Please follow-up with your primary care physician as well. Prescriptions: Acyclovir [Zovirax] 800 mg PO 5XD #35 tablet Referrals: MERA RESTREPO PA-C [Primary Care Provider] - Follow up in 3-5 days
[2019-09-24 20:53] LABS: ABSOLUTE BASOPHILS # (AUTO) 0.1 10^3/uL (0.0-0.2); ABSOLUTE EOSINOPHILS # (AUTO) 0.5 10^3/uL (0.0-0.6); ABSOLUTE LYMPHOCYTES (AUTO) 3.6 10^3/uL (0.5-4.7); ABSOLUTE MONOCYTES (AUTO) 0.9 10^3/uL (0.1-1.4); ABSOLUTE NEUT (AUTO) 4.7 10^3/uL (1.7-8.2); BASOPHILS % (AUTO) 1.4 % (0-2); EOSINOPHILS % (AUTO) 5.5 % (0-6); HEMATOCRIT 51.4 % (37.9-51.0); HEMOGLOBIN 17.8 g/dL (13.5-17.0); LYMPHOCYTES % (AUTO) 36.1 % (13-45); MEAN CORPUSCULAR HEMOGLOBIN 31.5 pg (27.0-33.4); MEAN CORPUSCULAR HGB CONC 34.6 g/dL (32.0-36.0); MEAN CORPUSCULAR VOLUME 91 fl (80-97); MONOCYTES % (AUTO) 9.1 % (3-13); PLATELET COUNT 281 10^3/uL (150-450); RED BLOOD COUNT 5.64 10^6/uL (4.35-5.55); RED CELL DISTRIBUTION WIDTH 13.2 % (11.5-14.0); SEGMENTED NEUTROPHILS % (AUTO) 47.9 % (42-78); TOTAL CELLS COUNTED % (AUTO) 100 %; WHITE BLOOD COUNT 9.9 10^3/uL (4.0-10.5)
[2019-09-24] MEDS ORDERED: METHYLPREDNISOLONE INJ 125 MG/2 ML SDV IV ONE (20:56)
[2019-09-24] MEDS ORDERED: EPINEPHRINE INJ/PF 1 MG/1 ML AMPULE IM ONE (20:57)
[2019-09-24] MEDS ORDERED: ONDANSETRON HCL INJ/PF 4 MG/2 ML SDV IV ONE ×2 (20:57→23:02)
[2019-09-24] MEDS ORDERED: HYDROMORPHONE HCL INJ/PF 2 MG/ML AMPULE IV ONE ×3 (20:58→22:57)
[2019-09-24 21:05] LABS: APPEARANCE,URINE CLEAR; BILIRUBIN,URINE NEGATIVE (NEGATIVE); COLOR,URINE YELLOW; GLUCOSE, URINE >=500 mg/dL (NEGATIVE); KETONES,URINE NEGATIVE (NEGATIVE); LEUKOCYTE ESTERASE,URINE NEGATIVE (NEGATIVE); NITRITE,URINE NEGATIVE (NEGATIVE); PROTEIN,URINE 30 mg/dL (NEGATIVE); URINE SPECIFIC GRAVITY 1.029; UROBILINOGEN,URINE NEGATIVE mg/dL (<2.0)
[2019-09-24] MEDS ORDERED: DIAZEPAM INJ 10 MG/2 ML DISP.SYRIN IV ONE ×2 (21:11→22:09)
[2019-09-24 21:17] LABS: ALBUMIN 4.5 g/dL (3.5-5.0); ALKALINE PHOSPHATASE 68 U/L (38-126); ANION GAP 12 (5-19); ASPARTATE AMINO TRANSFERASE 82 U/L (17-59); BILIRUBIN,DIRECT 0.2 mg/dL (0.0-0.4); BILIRUBIN,TOTAL 0.4 mg/dL (0.2-1.3); BLOOD UREA NITROGEN 20 mg/dL (7-20); CALCIUM 9.3 mg/dL (8.4-10.2); CARBON DIOXIDE 24 mmol/L (22-30); CHLORIDE 104 mmol/L (98-107); GLUCOSE 286 mg/dL (75-110); POTASSIUM 4.7 mmol/L (3.6-5.0); TOTAL PROTEIN 7.6 g/dL (6.3-8.2)
[2019-09-24 21:25] LABS: URINE AMPHETAMINES SCREEN NEGATIVE; URINE BENZODIAZEPINES SCREEN NEGATIVE; URINE COCAINE SCREEN NEGATIVE; URINE MARIJUANA (THC) SCREEN NEGATIVE; URINE METHADONE SCREEN NEGATIVE; URINE PHENCYCLIDINE SCREEN NEGATIVE
[2019-09-24 21:26] LABS: URINE BARBITURATES SCREEN NEGATIVE
[2019-09-24] MEDS ORDERED: OXYCODONE HCL SR 10 MG TABLET PO ONE ×2 (21:31→22:57)
[2019-09-24] MEDS ORDERED: ACYCLOVIR 800 MG TABLET PO ONE (21:34)
[2019-09-24] MEDS ORDERED: ACYCLOVIR 800 MG TABLET ONE (22:07)
--- NOTE | 2019-09-24 22:55 | EKG REPORT ---
SEVERITY:- OTHERWISE NORMAL ECG - SINUS TACHYCARDIA BORDERLINE RIGHT AXIS DEVIATION : Confirmed by: Christa Marcano MD 24-Sep-2019 22:54:32
[2019-09-24] MEDS ORDERED: DIPHENHYDRAMINE HCL 50 MG/ML VIAL IV ONE (23:47)
[2019-09-24] MEDS ORDERED: PROMETHAZINE HCL INJ 25 MG/1 ML VIAL IV ONE (23:47)
[2019-09-25] MEDS ORDERED: HYDROMORPHONE HCL INJ/PF 2 MG/ML AMPULE IV ONE (00:11)
[2019-09-25 00:25] VITALS: BP 143/91
== END 2019-09-25 00:35 | disposition home or self-care (01) ==
LOC: ER 20:20
DX: B01.9 Varicella without complication (principal); R11.2 Nausea with vomiting, unspecified; E78.00 Pure hypercholesterolemia, unspecified; I10 Essential (primary) hypertension; E11.9 Type 2 diabetes mellitus without complications; Z87.442 Personal history of urinary calculi; Z90.49 Acquired absence of other specified parts of digestive tract; Z88.3 Allergy status to other anti-infective agents; G89.29 Other chronic pain; M54.9 Dorsalgia, unspecified
CPT/HCPCS: 93005; 96376; 99283; 96372; 96361; 96374; 96375; 36415; 83690; 85025; 80053; 81001; 80307; 93010; J3360; J1200; J0171; J2930; J1170 ×2; J2550; J3490 ×2; J2405; J7030

== ENCOUNTER 2019-09-25 19:23 | Emergency (ER) | payer MEDICAID ==
[2019-09-25 20:36] LABS: VENOUS BLOOD BASE EXCESS -0.5 mmol/L; VENOUS BLOOD HCO3 25.8 mmol/L (20-32); VENOUS BLOOD PCO2 48.3 mmHg (35-63); VENOUS BLOOD PH 7.35 (7.30-7.42)
[2019-09-25 20:38] LABS: INTERNATIONAL RATION (INR) 0.89
[2019-09-25] MEDS ORDERED: NORMAL SALINE 1000 ML 1,000 ML IV ONE (20:47)
[2019-09-25 20:51] LABS: ALBUMIN 4.4 g/dL (3.5-5.0); ALKALINE PHOSPHATASE 62 U/L (38-126); ANION GAP 12 (5-19); ASPARTATE AMINO TRANSFERASE 35 U/L (17-59); BILIRUBIN,DIRECT 0.2 mg/dL (0.0-0.4); BILIRUBIN,TOTAL 0.3 mg/dL (0.2-1.3); BLOOD UREA NITROGEN 23 mg/dL (7-20); CALCIUM 9.8 mg/dL (8.4-10.2); CARBON DIOXIDE 24 mmol/L (22-30); CHLORIDE 102 mmol/L (98-107); GLUCOSE 222 mg/dL (75-110); POTASSIUM 4.4 mmol/L (3.6-5.0); TOTAL PROTEIN 7.3 g/dL (6.3-8.2)
--- NOTE | 2019-09-25 20:52 | RADIOLOGY REPORT (SQ) ---
XR CHEST 1 VIEW CLINICAL STATEMENT: vomiting COMPARISON: 01/03/17 FINDINGS: Cardiomediastinal silhouette is within normal limits. There is no focal lung consolidation or pleural effusion. No evidence of pulmonary edema or pneumothorax. IMPRESSION: No acute cardiopulmonary disease.
[2019-09-25 21:10] LABS: ABSOLUTE BASOPHILS # (AUTO) 0.1 10^3/uL (0.0-0.2); ABSOLUTE EOSINOPHILS # (AUTO) 0.1 10^3/uL (0.0-0.6); ABSOLUTE LYMPHOCYTES (AUTO) 2.6 10^3/uL (0.5-4.7); ABSOLUTE MONOCYTES (AUTO) 0.9 10^3/uL (0.1-1.4); ABSOLUTE NEUT (AUTO) 5.7 10^3/uL (1.7-8.2); BASOPHILS % (AUTO) 0.7 % (0-2); EOSINOPHILS % (AUTO) 1.5 % (0-6); HEMATOCRIT 42.6 % (37.9-51.0); LYMPHOCYTES % (AUTO) 27.6 % (13-45); MEAN CORPUSCULAR HEMOGLOBIN 31.5 pg (27.0-33.4); MEAN CORPUSCULAR HGB CONC 34.5 g/dL (32.0-36.0); MEAN CORPUSCULAR VOLUME 92 fl (80-97); MONOCYTES % (AUTO) 9.5 % (3-13); PLATELET COUNT 229 10^3/uL (150-450); RED BLOOD COUNT 4.66 10^6/uL (4.35-5.55); RED CELL DISTRIBUTION WIDTH 13.2 % (11.5-14.0); SEGMENTED NEUTROPHILS % (AUTO) 60.7 % (42-78); TOTAL CELLS COUNTED % (AUTO) 100 %; WHITE BLOOD COUNT 9.4 10^3/uL (4.0-10.5)
[2019-09-25 21:17] LABS: HEMOGLOBIN 14.7 g/dL (13.5-17.0)
--- NOTE | 2019-09-25 21:44 | EKG REPORT ---
SEVERITY:- ABNORMAL ECG - SINUS TACHYCARDIA NONSPECIFIC IVCD. : Confirmed by: Nathan Mendez MD 25-Sep-2019 21:43:39
[2019-09-25] MEDS ORDERED: PROMETHAZINE HCL INJ 25 MG/1 ML VIAL IV ONE (22:29)
[2019-09-25] MEDS ORDERED: DIPHENHYDRAMINE HCL 50 MG/ML VIAL IV ONE (22:29)
[2019-09-25] MEDS ORDERED: CALAMINE/ZINC OXIDE LOTION 177 ML/BOTTLE TP ONE (22:30)
[2019-09-25] MEDS ORDERED: CALAMINE/ZINC OXIDE LOTION 177 ML/BOTTLE ONE (22:46)
--- NOTE | 2019-09-25 23:48 | ER Document Report ---
ED GI/ - General Chief Complaint: Vomiting Stated Complaint: RASH,VOMITING Time Seen by Provider: 09/25/19 20:37 Primary Care Provider: MERA RESTREPO PA-C [Primary Care Provider] - Follow up as needed Notes: Patient is a 41-year-old male presents to the emergency department for generalized abdominal pain and vomiting. Patient voices he was at this facility yesterday for potential allergic reaction. States he also has chronic back pain. Patient voices he was given medication for his potential diagnosis of c hickenpox. States he has continued with pain in his lower abdomen as well as vomiting which is why presents to the emergency room. Patient voices he is unable to keep his medications down. Patient was complaining of generalized abdominal pain in all 4 quadrants. When I asked the patient if this is the rash that overlies his lower 2 quadrants patient voices "no it hurts on the inside." Patient then asks, "can you just give me Valium and Dilaudid like the doctor did yesterday?" Patient does voice that his lower abdomen itches. Patient does have an empty emesis bag sitting next to him. Voices he "cannot stop throwing up". Patient's denying any dysuria, headache, chest pain, shortness of breath. TRAVEL OUTSIDE OF THE [place] IN LAST 30 DAYS: No - Related Data Allergies/Adverse Reactions: clindamycin Allergy (Verified 09/24/19 20:39) haloperidol [From Haldol] Allergy (Verified 09/24/19 20:39) fentanyl Adverse Reaction (Verified 12/27/17 19:00) trazodone [Trazodone] Adverse Reaction (Verified 12/27/17 19:00) Past Medical History - General Information source: Patient - Social History Smoking Status: Unknown if Ever Smoked Frequency of alcohol use: None Drug Abuse: None Family History: None, Reviewed & Not Pertinent Patient has suicidal ideation: No Patient has homicidal ideation: No - Past Medical History Cardiac Medical History: Reports: Hx Hypercholesterolemia, Hx Hypertension Endocrine Medical History: Reports: Hx Diabetes Mellitus Type 2 Renal/ Medical History: Reports: Hx Kidney Stones - uric acid stones. Denies: Hx Peritoneal Dialysis GI Medical History: Reports: Hx Gastroesophageal Reflux Disease, Hx Hiatal Hernia Musculoskeletal Medical History: Reports Hx Musculoskeletal Trauma Traumatic Medical History: Reports: Hx Spine Fracture Past Surgical History: Reports: Hx Cholecystectomy, Hx Orthopedic Surgery - Neck fusion, chronic pain - Immunizations Hx Diphtheria, Pertussis, Tetanus Vaccination: Yes Review of Systems - Review of Systems Constitutional: denies: Fever EENT: No symptoms reported Cardiovascular: No symptoms reported Respiratory: No symptoms reported - I do not Gastrointestinal: See HPI Genitourinary: See HPI Male Genitourinary: No symptoms reported Musculoskeletal: No symptoms reported Skin: See HPI Hematologic/Lymphatic: No symptoms reported Neurological/Psychological: No symptoms reported Physical Exam - Vital signs Vitals: Pulse Ox 97 09/25/19 20:06 - Notes Notes: GENERAL: Alert, interacts well. No acute distress. HEAD: Normocephalic, atraumatic. EYES: Pupils equal, round, and reactive to light. Extraocular movements intact. ENT: Oral mucosa moist, tongue midline. NECK: Full range of motion. Supple. Trachea midline. LUNGS: Clear to auscultation bilaterally, no wheezes, rales, or rhonchi. No respiratory distress. HEART: Regular rate and rhythm. No murmur ABDOMEN: Soft, generalized tenderness noted all 4 quadrants. Non-distended. Bowel sounds present in all 4 quadrants. EXTREMITIES: Moves all 4 extremities spontaneously. No edema, normal radial and dorsalis pedis pulses bilaterally. No cyanosis. BACK: no cervical, thoracic, lumbar midline tenderness. No saddle anesthesia, normal distal neurovascular exam. NEUROLOGICAL: Alert and oriented x3. Normal speech. cranial nerves II through XII grossly intact. PSYCH: Normal affect, normal mood. SKIN: Warm, dry, normal turgor. Vesicular erythematous lesions noted right and left lower abdominal quadrants in different stages of healing. They do not extend into the patient's back. He does have slight lesions to bilateral forearms. Course - Re-evaluation Re-evalutation: 09/26/19 01:56 Laboratory 09/25/19 09/25/19 09/25/19 20:07 20:07 20:07 WBC Cancelled RBC Cancelled Hgb Cancelled Hct Cancelled MCV Cancelled MCH Cancelled MCHC Cancelled RDW Cancelled Plt Count Cancelled Lymph % (Auto) Cancelled [place] % (Auto) Cancelled Eos % (Auto) Cancelled Baso % (Auto) Cancelled Absolute Neuts (auto) Cancelled Absolute Lymphs (auto) Cancelled Absolute Monos (auto) Cancelled Absolute Eos (auto) Cancelled Absolute Basos (auto) Cancelled Seg Neutrophils % Cancelled Platelet Estimate Cancelled PT 12.0 INR 0.89 VBG pH VBG pCO2 VBG HCO3 VBG Base Excess Sodium 138.4 Potassium 4.4 Chloride 102 Carbon Dioxide 24 Anion Gap 12 BUN 23 H Creatinine 1.08 Est GFR ( Amer) > 60 Est GFR (MDRD) Non-Af > 60 Glucose 222 H Lactic Acid Calcium 9.8 Total Bilirubin 0.3 Direct Bilirubin 0.2 Neonat Total Bilirubin Not Reportable Neonat Direct Bilirubin Not Reportable Neonat Indirect Bili Not Reportable AST 35 ALT 42 Alkaline Phosphatase 62 Total Protein 7.3 Albumin 4.4 Slides for Path Review Cancelled 09/25/19 09/25/19 09/25/19 20:07 20:07 21:00 WBC 9.4 RBC 4.66 Hgb 14.7 D Hct 42.6 MCV 92 MCH 31.5 MCHC 34.5 RDW 13.2 Plt Count 229 Lymph % (Auto) 27.6 [place] % (Auto) 9.5 Eos % (Auto) 1.5 Baso % (Auto) 0.7 Absolute Neuts (auto) 5.7 Absolute Lymphs (auto) 2.6 Absolute Monos (auto) 0.9 Absolute Eos (auto) 0.1 Absolute Basos (auto) 0.1 Seg Neutrophils % 60.7 Platelet Estimate PT INR VBG pH 7.35 VBG pCO2 48.3 VBG HCO3 25.8 VBG Base Excess -0.5 Sodium Potassium Chloride Carbon Dioxide Anion Gap BUN Creatinine Est GFR ( Amer) Est GFR (MDRD) Non-Af Glucose Lactic Acid 1.8 Calcium Total Bilirubin Direct Bilirubin Neonat Total Bilirubin Neonat Direct Bilirubin Neonat Indirect Bili AST ALT Alkaline Phosphatase Total Protein Albumin Slides for Path Review According to nursing notes patient initially presented to the emergency tachycardic and vomiting. Upon my assessment he is sitting in the bed in no apparent distress. He is asking me specifically for "Valium and Dilaudid." I discussed that unfortunately Valium does not typically help with abdominal pain. I discussed use of Phenergan, Benadryl, calamine lotion for suspected chickenpox and vomiting. I also discussed doing a CT as patient voices that his abdominal pain is "on the inside." Patient does push my hand away when I attempt to examine any part of his abdomen. States "it hurts all over." The rash does not extend to the patient's back. It does appear on the right and left lower abdominal region. Also noted on bilateral forearms. Patient continues to tell me over and over again that his abdominal "muscles hurt." Keeps asking for a "muscle relaxer." Patient starts to raise his voice and starts yelling at me. Voices he is going to take his home medications if I "do not help him." I have recommended to the patient against taking home medications until we have fully evaluated him in the emergency department. Patient then voices he would like to speak with the charge nurse. I have discussed this with Ni ESCALERA charge nurse. She is calling the general warehouse associate. Ni Mendoza RN, brings to my attention that the patient would like to leave the emergency department AGAINST MEDICAL ADVICE. Patient has not underwent his CT imaging at this time. I have tried to discuss with pt leaving the ED AMA prior to CT could result in continued damage or . Patient does not wish to speak to me. Charge nurse Ni has obtained AMA paperwork. - Vital Signs Vital signs: Temp Pulse Resp BP Pulse Ox 99.2 F 21 H 173/134 H 99 09/25/19 20:32 09/25/19 22:52 09/25/19 22:52 09/25/19 22:52 - Laboratory Result Diagrams: 09/25/19 21:00 09/25/19 20:07 Laboratory results interpreted by me: 09/25/19 20:07 BUN 23 H Glucose 222 H Discharge - Discharge Clinical Impression: Left against medical advice Disposition: AGAINST MEDICAL ADVICE Referrals: MERA RESTREPO PA-C [Primary Care Provider] - Follow up as needed
[2019-09-26 00:06] VITALS: BP 173/134
== END 2019-09-26 00:06 | disposition left against medical advice (07) ==
LOC: ER 19:23
DX: M79.18 Myalgia, other site (principal); R10.817 Generalized abdominal tenderness; R11.10 Vomiting, unspecified; R21 Rash and other nonspecific skin eruption; L29.9 Pruritus, unspecified; R00.0 Tachycardia, unspecified; I10 Essential (primary) hypertension; E11.9 Type 2 diabetes mellitus without complications; Z87.442 Personal history of urinary calculi; Z87.19 Personal history of other diseases of the digestive system; Z90.49 Acquired absence of other specified parts of digestive tract; Z88.1 Allergy status to other antibiotic agents; Z88.8 Allergy status to other drugs, medicaments and biological substances; Z53.20 Procedure and treatment not carried out because of patient's decision for unspecified reasons
CPT/HCPCS: 93005; 36415; 87040; 85025; 85610; 80053; 82803; 83605; 71045; 93010; J3490; J2550; J7030

== ENCOUNTER 2020-05-04 23:55 | Emergency (ER) | payer MEDICAID ==
[2020-05-05] MEDS ORDERED: ONDANSETRON HCL INJ/PF 4 MG/2 ML SDV IV ONE (00:07)
[2020-05-05] MEDS ORDERED: MORPHINE SULFATE 10 MG/ML INJ IV ONE ×2 (00:07→04:48)
--- NOTE | 2020-05-05 00:09 | ER Document Report ---
ED Medical Screen (RME) - General Chief Complaint: Shoulder Pain Stated Complaint: ARM/SHOULDER PAIN Time Seen by Provider: 05/05/20 00:06 Primary Care Provider: MERA RESTREPO PA-C [Primary Care Provider] - Follow up as needed Notes: HPI: 50-year-old male presenting for evaluation of left shoulder injury tonight. Patient states that he has had 2 prior rotator cuff surgeries on the left shoulder. Patient believes he tore his rotator cuff again tonight. States his dogs got out as he went to [place] them in the truck the muffler fell and he jumped out of his truck and attempted to grab the muffler and lifted back up and felt something tear in the shoulder. He has not definite that he did not dislocate the shoulder. Patient states he is due for back surgery in 4 days with [facility] in [place] PHYSICAL EXAMINATION: Patient is moderately uncomfortable. He is guarding the left arm and shoulder. Difficult exam secondary to pain and positioning. Unable to definitively say patient does not dislocated I have greeted and performed a rapid initial assessment of this patient. A comprehensive ED assessment and evaluation of the patient, analysis of test results and completion of medical decision making process will be conducted by an additional ED providers. TRAVEL OUTSIDE OF THE [place] IN LAST 30 DAYS: No - Related Data Allergies/Adverse Reactions: clindamycin Allergy (Verified 09/24/19 20:39) haloperidol [From Haldol] Allergy (Verified 09/24/19 20:39) fentanyl Adverse Reaction (Verified 12/27/17 19:00) trazodone [Trazodone] Adverse Reaction (Verified 12/27/17 19:00) Past Medical History - Past Medical History Cardiac Medical History: Reports: Hx Hypercholesterolemia, Hx Hypertension Endocrine Medical History: Reports: Hx Diabetes Mellitus Type 2 Renal/ Medical History: Reports: Hx Kidney Stones - uric acid stones. Denies: Hx Peritoneal Dialysis GI Medical History: Reports: Hx Gastroesophageal Reflux Disease, Hx Hiatal Hernia Musculoskeltal Medical History: Reports Hx Musculoskeletal Trauma Traumatic Medical History: Reports: Hx Spine Fracture Past Surgical History: Reports: Hx Cholecystectomy, Hx Orthopedic Surgery - Neck fusion, chronic pain - Immunizations Hx Diphtheria, Pertussis, Tetanus Vaccination: Yes Doctor's Discharge - Discharge Referrals: MERA RESTREPO PA-C [Primary Care Provider] - Follow up as needed
--- NOTE | 2020-05-05 01:43 | RADIOLOGY REPORT (SQ) ---
EXAM DESCRIPTION: XR SHOULDER 2 OR MORE VIEWS COMPLETED DATE/TME: 05/05/2020 00:06 CLINICAL HISTORY: 50 years Male, dislocation COMPARISON: None. Findings: Mild anterior subluxation-rotation of the left glenohumeral joint. Moderate osteoarthritis of the left shoulder. Anterior fixation at the left humeral head. Cervicothoracic hardware fusion. Bones, joints, and soft tissues of the LEFT XR SHOULDER 2 OR MORE VIEWS appear otherwise unremarkable. IMPRESSION: Mild anterior subluxation-rotation of the left glenohumeral joint.
[2020-05-05] MEDS ORDERED: PROMETHAZINE HCL INJ 50 MG/1 ML VIAL IM ONE (04:48)
[2020-05-05] MEDS ORDERED: PROMETHAZINE HCL INJ 25 MG/1 ML VIAL ONE (05:01)
[2020-05-05] MEDS ORDERED: METHOCARBAMOL INJ/PF 1000 MG/10 ML SDV IV ONE (05:16)
--- NOTE | 2020-05-05 05:16 | ER Document Report ---
ED Extremity Problem, Upper - General Chief Complaint: Shoulder Pain Stated Complaint: ARM/SHOULDER PAIN Time Seen by Provider: 05/05/20 00:06 Primary Care Provider: [facility] [Provider Group] - Follow up as needed MERA RESTREPO PA-C [Primary Care Provider] - Follow up as needed Notes: 50-year-old male presenting today with left shoulder injury occurring around 9 PM yesterday. Patient states he was lifting something and he felt a tearing sensation of his left shoulder. Patient reports that he has had multiple rotator cuff surgeries for shoulder fixation. Was just beginning to regaining mobility and strength of his left shoulder. No numbness/tingling. Takes oxycodone daily for pain. Has surgery for his back on Wednesday. Does TRAVEL OUTSIDE OF THE [place] IN LAST 30 DAYS: No - Related Data Allergies/Adverse Reactions: clindamycin Allergy (Verified 09/24/19 20:39) haloperidol [From Haldol] Allergy (Verified 09/24/19 20:39) fentanyl Adverse Reaction (Verified 12/27/17 19:00) trazodone [Trazodone] Adverse Reaction (Verified 12/27/17 19:00) Past Medical History - Social History Smoking Status: Never Smoker Chew tobacco use (# tins/day): No Frequency of alcohol use: None Drug Abuse: None Family History: None, Reviewed & Not Pertinent Patient has homicidal ideation: No - Past Medical History Cardiac Medical History: Reports: Hx Hypercholesterolemia, Hx Hypertension Endocrine Medical History: Reports: Hx Diabetes Mellitus Type 2 Renal/ Medical History: Reports: Hx Kidney Stones - uric acid stones. Denies: Hx Peritoneal Dialysis GI Medical History: Reports: Hx Gastroesophageal Reflux Disease, Hx Hiatal Hernia Musculoskeletal Medical History: Reports Hx Musculoskeletal Trauma Traumatic Medical History: Reports: Hx Spine Fracture Past Surgical History: Reports: Hx Cholecystectomy, Hx Orthopedic Surgery - Neck fusion, chronic pain - Immunizations Hx Diphtheria, Pertussis, Tetanus Vaccination: Yes Review of Systems - Review of Systems Constitutional: No symptoms reported EENT: No symptoms reported Cardiovascular: No symptoms reported Respiratory: No symptoms reported Gastrointestinal: No symptoms reported Genitourinary: No symptoms reported Musculoskeletal: See HPI Physical Exam - Vital signs Vitals: Temp Pulse Resp BP Pulse Ox 98.0 F 113 H 20 133/97 H 96 05/05/20 00:03 05/05/20 00:03 05/05/20 00:03 05/05/20 00:03 05/05/20 00:03 Interpretation: Tachycardic - Notes Notes: PHYSICAL EXAMINATION: GENERAL: Well-appearing, well-nourished holding left arm close to body HEAD: Atraumatic, normocephalic. EYES: extraocular movements intact, sclera anicteric, conjunctiva are normal. ENT: nares patent, airway patent NECK: Normal range of motion EXTREMITIES: Guarding left arm, difficult to assess and perform full physical exam due to pain. 5/5 strength with abduction and adduction. No shoulder laxity. Good distal radial pulses. Unable to internally or externally rotate arm. Good sensation in distal left upper extremity. Good capillary refill. NEUROLOGICAL: No focal deficits noted. PSYCH: Normal mood, normal affect. SKIN: Warm, Dry, normal turgor, no rashes or lesions noted. Course - Re-evaluation Re-evalutation: 05/05/20 06:15 50-year-old male with acute left shoulder injury and multiple rotator cuff repairs. X-ray shows mild anterior subluxation of the left shoulder. He is neurovascularly intact. His pain was decreased with 1 dose of morphine. On repeat exam patient continues to guard arm and ask provider multiple questions about pain relief. He states he does not want any steroids or any medication that would increase his blood sugars as he is having back surgery on Wednesday. Patient is asking to receive diazepam as he feels his neck is tight due to the shoulder pain. Ordered IM robaxin and patient expressed concerns about robaxin and again inquires about diazepam. I do not feel comfortable providing a benzo based his chronic and daily opioid use. Discussed risks of opioids and benzos with the patient. Patient was also asking about another dose of morphine. He also reports that his next dose of Eboni is at 8 AM. Patient agrees to have the robaxin and toradol administered. I feel that immobilization of the arm will provide additional pain relief. Patient can ice and rest the arm and continue his daily prescribed opiods. Recommend patient be in sling and follow up with orthopedics. He can take his already prescribed narcotics for additional pain relief. - Vital Signs Vital signs: Temp Pulse Resp BP Pulse Ox 98.1 F 113 H 20 133/97 H 96 05/05/20 00:09 05/05/20 00:03 05/05/20 00:03 05/05/20 00:03 05/05/20 00:03 Discharge - Discharge Clinical Impression: Subluxation Shoulder pain, left Qualifiers: Chronicity: acute Qualified Code(s): M25.512 - Pain in left shoulder Condition: Stable Disposition: HOME, SELF-CARE Instructions: Sling as Treatment ([facility]) Additional Instructions: Please wear your sling and follow up with your methods specialist as soon as possible. Prescriptions: Oxaprozin 600 mg PO BID 7 Days #14 tablet Referrals: MERA RESTREPO PA-C [Primary Care Provider] - Follow up as needed [facility] [Provider Group] - Follow up as needed
[2020-05-05] MEDS ORDERED: KETOROLAC TROMETHAMINE INJ/PF 30 MG/1 ML SDV IM ONE (05:48)
[2020-05-05 07:04] VITALS: BP 164/104
== END 2020-05-05 07:04 | disposition home or self-care (01) ==
LOC: ER 23:55
DX: S43.012A Anterior subluxation of left humerus, initial encounter (principal); M25.512 Pain in left shoulder; X58.XXXA Exposure to other specified factors, initial encounter; Z79.899 Other long term (current) drug therapy; Z88.1 Allergy status to other antibiotic agents; Z88.8 Allergy status to other drugs, medicaments and biological substances; I10 Essential (primary) hypertension; E11.9 Type 2 diabetes mellitus without complications
CPT/HCPCS: 96376; 99283; 96372; 96374; 96375; 73030; J2800; J1885; J2270; J2550; J2405